=== PATIENT | female | born 1975 | race Caucasian/White ===

== ENCOUNTER 2018-04-17 14:53 | Emergency (ER) | payer MEDICAID ==
--- NOTE | 2018-04-17 15:23 | ER Document Report ---
ED GI/ - General Chief Complaint: Possible Kidney Stone Stated Complaint: SIDE PAIN AND FEVER Time Seen by Provider: 04/17/18 15:13 Notes: The patient is a 43-year-old female, past medical history prior left-sided kidney stones, metastatic breast cancer, presents with 5 days of intermittent left flank pain rating into her groin. She has had 4 prior kidney stones they have all passed without any surgical intervention. Patient took Tylenol with some relief her symptoms and she is not having any nausea or vomiting currently. She is unsure if she is having hematuria. She also is having subjective fevers. Denies diarrhea, constipation, current abdominal pain or dysuria. TRAVEL OUTSIDE OF THE [place] IN LAST 30 DAYS: No - Related Data Allergies/Adverse Reactions: Antihistamines - Alkylamine Adverse Reaction (Verified 04/17/18 14:57) Tachycardia Past Medical History - General Information source: Patient - Social History Smoking Status: Unknown if Ever Smoked Family History: Reviewed & Not Pertinent Renal/ Medical History: Reports: Hx Kidney Stones Malignancy Medical History: Reports: Hx Breast Cancer, Hx Lung Cancer Past Surgical History: Reports: Hx Breast Surgery - bilat. mastectomy and reconstruction - Immunizations Hx Diphtheria, Pertussis, Tetanus Vaccination: No Hx Pneumococcal Vaccination: 07/12/14 Review of Systems - Review of Systems Notes: REVIEW OF SYSTEMS: CONSTITUTIONAL: -fevers, -chills EENT: -eye pain, -difficulty swallowing, -nasal congestion CARDIOVASCULAR: -chest pain, -syncope. RESPIRATORY: -cough, -SOB GASTROINTESTINAL: -abdominal pain, -nausea, -vomiting, -diarrhea GENITOURINARY: -dysuria, -hematuria MUSCULOSKELETAL: +left flank pain, -neck pain SKIN: -rash or skin lesions. HEMATOLOGIC: -easy bruising or bleeding. LYMPHATIC: -swollen, enlarged glands. NEUROLOGICAL: -altered mental status or loss of consciousness, -headache, - neurologic symptoms PSYCHIATRIC: -anxiety, -depression. ALL OTHER SYSTEMS REVIEWED AND NEGATIVE. Physical Exam - Vital signs Vitals: Temp Pulse Resp BP Pulse Ox 98.7 F 111 H 18 128/68 H 99 04/17/18 15:12 04/17/18 15:12 04/17/18 15:12 04/17/18 15:12 04/17/18 15:12 - Notes Notes: PHYSICAL EXAMINATION: GENERAL: Well-appearing, well-nourished and in no acute distress. HEAD: Atraumatic, normocephalic. EYES: Pupils equal round and reactive to light, extraocular movements intact, sclera anicteric, conjunctiva are normal. ENT: nares patent, oropharynx clear without exudates. Moist mucous membranes. NECK: Normal range of motion, supple without lymphadenopathy LUNGS: Breath sounds clear to auscultation bilaterally and equal. No wheezes rales or rhonchi. HEART: Tachycardia, regular rhythm ABDOMEN: Soft, nontender, normoactive bowel sounds. No guarding, no rebound. No masses appreciated. EXTREMITIES: Normal range of motion, no pitting or edema. No cyanosis. BACK: No CVA tenderness. NEUROLOGICAL: Cranial nerves grossly intact. Normal speech, normal gait. Normal sensory and motor exams. PSYCH: Normal mood, normal affect. SKIN: Warm, Dry, normal turgor, no rashes or lesions noted. Course - Re-evaluation Re-evalutation: Patient appears well. She has multiple nonobstructing urolithiasis on her CT scan, as well as multiple sclerotic and lytic osseous lesions. She has a known history of metastatic breast cancer and is already following at [facility] oncology. No signs of infected kidney stones or pyelonephritis and blood work is unremarkable. Will send her home with anti-inflammatories, pain control and antinausea medicine with follow-up at the Urology clinic. - Vital Signs Vital signs: Temp Pulse Resp BP Pulse Ox 98.7 F 111 H 18 128/68 H 99 04/17/18 15:12 04/17/18 15:12 04/17/18 15:12 04/17/18 15:12 04/17/18 15:12 - Laboratory Result Diagrams: 04/17/18 15:25 04/17/18 15:25 Laboratory results interpreted by me: 04/17/18 04/17/18 15:00 15:25 Sodium 148.5 H Glucose 129 H Calcium 10.3 H Urine Blood SMALL H - Diagnostic Test Radiology reviewed: Image reviewed, Reports reviewed - Will discharge her after her next Radiology results interpreted by me: CT A/P: 1. Nonobstructing urolithiasis. 2. Multiple mixed sclerotic and lytic osseous lesions as detailed above. Given patient's history of breast cancer, favor metastatic disease. Discharge - Discharge Clinical Impression: Renal colic on left side Condition: Stable Disposition: HOME, SELF-CARE Additional Instructions: KIDNEY STONE: You are passing or have passed a kidney stone. These stones are usually due to increased calcium or uric acid concentrations in your urine. Stones within the kidney itself are not painful. The pain occurs as the stone leaves the kidney to pass down the long tube, called the ureter, leading to the bladder. If the stone is small, it will usually pass by itself. Most patients can pass the stone at home. You will usually receive medications for pain, nausea or vomiting, and sometimes a medication to assist in passing the kidney stone. However, if the pain is very severe or if vomiting prevents you from taking oral pain medications, you may need to return for further treatment. Drink three or four quarts of fluids per day. You will be given pain medication (if needed) and urine strainers. Strain all your urine to see if the stone passes. If your doctor has asked you to bring the stone in for analysis, return with the stone once it has passed. Return if pain or vomiting become severe, if you develop a high fever, if you are unable to pass your urine, or if other unusual symptoms occur. ANTINAUSEA MEDICATION: You have been given a medication to suppress nausea and vomiting. This type of medication can be given as a shot, pill, or suppository. It will usually last for many hours. Pills and shots usually last six to eight hours, suppositories last about 12 hours. For the typical illness, only one or two doses of the medication may be necessary. Mild lightheadedness may occur. This type of medicine can cause drowsiness. Do not drive or operate dangerous machinery while under its influence. Do not mix with alcohol. See your doctor at once if you have muscle spasms or tightness, or uncontrollable motions (particularly of the neck, mouth, or jaw). Persistent vomiting or severe lightheadedness should also be evaluated by the physician. ORAL NARCOTIC MEDICATION: You have been given a prescription for pain control. This medication is a narcotic. It's best taken with food, as nausea can result if taken on an empty stomach. Don't operate machinery or drive within six hours of taking this medication. Do not combine this medicine with alcohol, or with any medication which can cause sedation (such as cold tablets or sleeping pills) unless you get permission from the physician. Narcotics tend to cause constipation. If possible, drink plenty of fluids and eat a diet high in fiber and fruits. Please be aware that prescription narcotics also have the potential for abuse. People become addicted to these medications because of the general sense of wellbeing that they induce. This feeling along with a significant reduction in tension, anxiety, and aggression provides a stimulating seductive quality to these drugs. Once your pain is under control, we encourage you to discard your unused narcotics. FOLLOW-UP CARE: If you have been referred to a physician for follow-up care, call the physician s office for an appointment as you were instructed or within the next two days. If you experience worsening or a significant change in your symptoms, notify the physician immediately or return to the Emergency Department at any time for re-evaluation. Prescriptions: Hydrocodone/Acetaminophen [[place] 5-325 mg Tablet] 1 tab PO Q6H PRN #10 tablet PRN Reason: Ondansetron [Zofran Odt 4 mg Tablet] 1 - 2 tab PO Q4H PRN #15 tab.rapdis PRN Reason: For Nausea/Vomiting Forms: Elevated Blood Pressure Referrals: [facility] [Provider Group] - Follow up as needed
[2018-04-17 15:43] LABS: ABSOLUTE BASOPHILS # (AUTO) 0.1 10^3/uL (0.0-0.2); ABSOLUTE EOSINOPHILS # (AUTO) 0.1 10^3/uL (0.0-0.6); ABSOLUTE LYMPHOCYTES (AUTO) 1.4 10^3/uL (0.5-4.7); ABSOLUTE MONOCYTES (AUTO) 0.5 10^3/uL (0.1-1.4); ABSOLUTE NEUT (AUTO) 7.2 10^3/uL (1.7-8.2); BASOPHILS % (AUTO) 0.7 % (0-2); EOSINOPHILS % (AUTO) 0.9 % (0-6); HEMATOCRIT 40.4 % (36.0-47.0); HEMOGLOBIN 14.2 g/dL (12.0-15.5); LYMPHOCYTES % (AUTO) 15.6 % (13-45); MEAN CORPUSCULAR HEMOGLOBIN 31.5 pg (27.0-33.4); MEAN CORPUSCULAR HGB CONC 35.1 g/dL (32.0-36.0); MEAN CORPUSCULAR VOLUME 90 fl (80-97); MONOCYTES % (AUTO) 5.2 % (3-13); PLATELET COUNT 344 10^3/uL (150-450); RED CELL DISTRIBUTION WIDTH 12.5 % (11.5-14.0); SEGMENTED NEUTROPHILS % (AUTO) 77.6 % (42-78); TOTAL CELLS COUNTED % (AUTO) 100 %; WHITE BLOOD COUNT 9.2 10^3/uL (4.0-10.5)
[2018-04-17 15:45] LABS: APPEARANCE,URINE CLEAR; BILIRUBIN,URINE NEGATIVE (NEGATIVE); COLOR,URINE COLORLESS; GLUCOSE, URINE NEGATIVE (NEGATIVE); KETONES,URINE NEGATIVE (NEGATIVE); LEUKOCYTE ESTERASE,URINE NEGATIVE (NEGATIVE); NITRITE,URINE NEGATIVE (NEGATIVE); PROTEIN,URINE NEGATIVE (NEGATIVE); URINE SPECIFIC GRAVITY 1.003; UROBILINOGEN,URINE NEGATIVE mg/dL (<2.0)
[2018-04-17 15:57] LABS: ALANINE AMINOTRANSFERASE 22 U/L (9-52); ALBUMIN 4.9 g/dL (3.5-5.0); ALKALINE PHOSPHATASE 110 U/L (38-126); ANION GAP 16 (5-19); ASPARTATE AMINO TRANSFERASE 33 U/L (14-36); BILIRUBIN,DIRECT 0.3 mg/dL (0.0-0.4); BILIRUBIN,TOTAL 0.4 mg/dL (0.2-1.3); BLOOD UREA NITROGEN 10 mg/dL (7-20); CALCIUM 10.3 mg/dL (8.4-10.2); CARBON DIOXIDE 28 mmol/L (22-30); CHLORIDE 105 mmol/L (98-107); GLUCOSE 129 mg/dL (75-110); POTASSIUM 3.9 mmol/L (3.6-5.0); SODIUM 148.5 mmol/L (137-145)
--- NOTE | 2018-04-17 16:19 | RADIOLOGY REPORT (SQ) ---
EXAM DESCRIPTION: CT LTD RENAL STONE PROTOCOL ON COMPLETED DATE/TIME: 04/17/2018 3:38 pm REASON FOR STUDY: left flank pain into groin COMPARISON: 12/21/2014 TECHNIQUE: CT scan of the abdomen and pelvis performed without intravenous or oral contrast. Images reviewed with lung, soft tissue, and bone windows. Reconstructed coronal and sagittal MPR images revi ewed. All images stored on PACS. All CT scanners at this facility use dose modulation, iterative reconstruction, and/or weight based d osing when appropriate to reduce radiation dose to as low as reasonably achievable (ALARA). [facility]: Dose Right [facility]: CareDose [facility]: Dose Right [facility]: Teradose 4D [facility]: [employer] RADIATION DOSE: CT Rad equipment meets quality standard of care and radiation dose reduction techniq ues were employed. CTDIvol: 5.0 mGy. DLP: 243 mGy-cm.mGy. LIMITATIONS: None. FINDINGS: LOWER CHEST: Right lung base pleural nodular thickening demonstrating new peripheral calci fications. NON-CONTRASTED LIVER, SPLEEN, ADRENALS: Evaluation limited by lack of IV contrast. Mildly heterogene ous attenuation without identified significant masses. PANCREAS: No masses. No peripancreatic inflammatory changes. GALLBLADDER: No identified stones by CT criteria. No inflammatory changes to suggest cholecystitis. RIGHT KIDNEY AND URETER: No suspicious masses. Assessment limited by lack of IV contrast. Few punct ate nonobstructing nephroliths are present. No hydronephrosis or hydroureter. LEFT KIDNEY AND URETER: No suspicious masses. Assessment limited by lack of IV contrast. Multiple n onobstructing punctate nephroliths are present. No hydronephrosis or hydroureter. AORTA AND RETROPERITONEUM: No aneurysm. No retroperitoneal masses or adenopathy. BOWEL AND PERITONEAL CAVITY: No obvious masses or inflammatory changes. No free fluid. APPENDIX: Normal. PELVIS, BLADDER, AND ABDOMINAL WALL:No abnormal masses. No free fluid. Bladder normal. BONES: Transitional anatomy is present. Interval development of predominantly lytic lesions within t he L5 and L2 vertebral bodies noting extension to the cortical surfaces. No compression deformity. Additionally, predominantly sclerotic expansion of the right inferior pubic ramus and mixed lytic and sclerotic expansion of the left femur are present. Both a small sclerotic focus and lytic expansion are seen within the right sacrum. OTHER: No other significant finding. IMPRESSION: 1. Nonobstructing urolithiasis. 2. Multiple mixed sclerotic and lytic osseous lesions as detailed above. Given patient's history of breast cancer, favor metastatic disease. COMMENT: Quality ID # [id number]: Final reports with documentation of one or more dose reduction techniques (e.g., Automated exposure control, adjustment of the mA and/or kV according to patient size, use of iterative reconstruction technique) TECHNICAL DOCUMENTATION: JOB ID: [id number] [employer]- All Rights Reserved Reading location - IP/workstation name: [email or web address]
[2018-04-17 17:03] VITALS: BP 117/73
== END 2018-04-17 17:03 | disposition home or self-care (01) ==
LOC: ER 14:53
DX: N20.0 Calculus of kidney (principal); Z87.442 Personal history of urinary calculi; Z85.3 Personal history of malignant neoplasm of breast; Z90.13 Acquired absence of bilateral breasts and nipples; Z85.118 Personal history of other malignant neoplasm of bronchus and lung
CPT/HCPCS: 36415; 76380; 80053; 81001; 81025; 85025; 99284

== ENCOUNTER 2019-02-09 00:29 | Inpatient (IN) | payer MEDICAID ==
--- NOTE | 2019-02-09 02:28 | ER Document Report ---
ED Medical Screen (RME) - General Chief Complaint: Leg Swelling Stated Complaint: LEFT LEG/ANKLE SWELLING Time Seen by Provider: 02/09/19 02:25 Mode of Arrival: Ambulatory Information source: Patient, [facility] Records Notes: 44-year-old female with metastatic breast cancer presents with left lower extremity pain and swelling. Patient states that 2 nights prior to arrival she struck the back of her heel on a chair and then developed swelling of her left calf and now the left thigh. Patient denies any shortness of breath, history of PE, DVT. She is currently undergoing chemo. She denies any shortness of breath, palpitations. I have greeted and performed a rapid initial assessment of this patient. A comprehensive ED assessment and evaluation of the patient, analysis of test results and completion of medical decision making process we will be contacted by additional ED providers. PHYSICAL EXAMINATION: Vital signs reviewed GENERAL: Well-appearing, well-nourished and in no acute distress. LUNGS: No respiratory distress Musculoskeletal: Normal range of motion. Left lower extremity swelling, mild tenderness with palpation of the calf. NEUROLOGICAL: Normal speech, normal gait. PSYCH: Normal mood, normal affect. SKIN: Warm, Dry, normal turgor, no rashes or lesions noted. TRAVEL OUTSIDE OF THE [place] IN LAST 30 DAYS: No - HPI Onset: Other Onset/Duration: Gradual, Persistent Quality of pain: Achy Associated Symptoms: Leg swelling. denies: Chest pain, Fever, Hurts to breath, Shortness of breath Exacerbated by: Movement, Walking Relieved by: Denies Similar symptoms previously: No Recently seen / treated by doctor: No - Related Data Smoking: Non-smoker Frequency of alcohol use: None Drug Abuse: None Allergies/Adverse Reactions: Antihistamines - Alkylamine Adverse Reaction (Verified 04/17/18 14:57) Tachycardia Past Medical History Renal/ Medical History: Reports: Hx Kidney Stones. Denies: Hx Peritoneal Dialysis Malignancy Medical History: Reports: Hx Breast Cancer, Hx Lung Cancer Past Surgical History: Reports: Hx Breast Surgery - bilat. mastectomy and reconstruction - Immunizations Hx Diphtheria, Pertussis, Tetanus Vaccination: No Physical Exam - Vital signs Vitals: Temp Pulse Resp BP Pulse Ox 98.2 F 136 H 20 130/69 H 100 02/09/19 01:10 02/09/19 01:10 02/09/19 01:10 02/09/19 01:02/09/19 01:10 Course - Vital Signs Vital signs: Temp Pulse Resp BP Pulse Ox 98.2 F 136 H 20 130/69 H 100 02/09/19 01:10 02/09/19 01:10 02/09/19 01:10 02/09/19 01:02/09/19 01:10
--- NOTE | 2019-02-09 02:42 | ER Document Report ---
ED General - General Mode of Arrival: Ambulatory TRAVEL OUTSIDE OF THE [place] IN LAST 30 DAYS: No <GLENIS JOHNSON - Last Filed: 02/09/19 03:02> <HIMANSHU DAVIS - Last Filed: 02/09/19 11:34> - General Chief Complaint: Leg Swelling Stated Complaint: LEFT LEG/ANKLE SWELLING Time Seen by Provider: 02/09/19 02:25 Notes: Patient is a pleasant 44-year-old female with a history of breast cancer with metastasis to her liver lungs and bones. She presents with complaint of swelling and edema her left leg started yesterday. Patient was initially seen by Dr. Anderson who did a bedside ultrasound which showed she likely has a DVT in her left leg as her left femoral vein is noncompressible. Patient denies any chest pain or shortness of breath. No fevers. No vomiting. No other complaints at this time. She is currently on oral chemotherapy for her breast cancer. She is followed by oncologist at [facility]. (GLENIS JOHNSON) - Related Data Allergies/Adverse Reactions: Antihistamines - Alkylamine Adverse Reaction (Verified 04/17/18 14:57) Tachycardia contrast dye Allergy (Uncoded 02/09/19 02:52) Anaphylaxis Past Medical History - General Information source: Patient, [facility] Records - Social History Smoking Status: Never Smoker Frequency of alcohol use: None Drug Abuse: None Family History: Reviewed & Not Pertinent Renal/ Medical History: Reports: Hx Kidney Stones. Denies: Hx Peritoneal Dialysis Malignancy Medical History: Reports: Hx Breast Cancer, Hx Lung Cancer Past Surgical History: Reports: Hx Breast Surgery - bilat. mastectomy and reconstruction - Immunizations Hx Diphtheria, Pertussis, Tetanus Vaccination: No Hx Pneumococcal Vaccination: 07/12/14 <GLENIS JOHNSON - Last Filed: 02/09/19 03:02> Review of Systems <GLENIS JOHNSON - Last Filed: 02/09/19 03:02> - Review of Systems Notes: My Normal Review Basic REVIEW OF SYSTEMS: CONSTITUTIONAL : Denies fever, chills, or sweats. Denies recent illness. EENT: Denies eye, ear, throat, or mouth pain or symptoms. Denies nasal or sinus congestion. CARDIOVASCULAR: Denies chest pain. RESPIRATORY: Denies cough, cold, or chest congestion. Denies shortness of breath, difficulty breathing, or wheezing. GASTROINTESTINAL: Denies abdominal pain. Denies nausea, vomiting, or diarrhea. GENITOURINARY: Denies difficulty urinating, painful urination, burning, frequency, or blood in urine. MUSCULOSKELETAL: Swelling to left lower leg. SKIN: Denies rash or skin lesions. HEMATOLOGIC : Denies easy bruising or bleeding. NEUROLOGICAL: Denies altered mental status or loss of consciousness. Denies headache. Denies weakness or paralysis or loss of use of either side. Denies problems with gait or speech. Denies sensory or motor loss. PSYCHIATRIC: She says she has anxiety. ALL OTHER SYSTEMS REVIEWED AND NEGATIVE. (GLENIS JOHNSON) Physical Exam <GLENIS JOHNSON - Last Filed: 02/09/19 03:02> - Vital signs Vitals: Temp Pulse Resp BP Pulse Ox 98.2 F 136 H 20 130/69 H 100 02/09/19 01:10 02/09/19 01:10 02/09/19 01:10 02/09/19 01:10 02/09/19 01:10 - Notes Notes: General Appearance: Well nourished, alert, cooperative, no acute distress, no obvious discomfort. Well-appearing. Vitals: reviewed, See vital signs table. Head: no swelling or tenderness to the head Eyes: PERRL, EOMI, Conjuctiva clear Mouth: No decreasd moisture Lungs: No wheezing, No rales, No rhonci, No accessory muscle use, good air exchange bilaterally. Heart: Cardiac rate, Regular rythm, No murmur, no rub Abdomen: Normal BS, soft, No rigidity, No abdominal tenderness, No guarding, no rebound, no abdominal masses, no organomegaly Extremities: strength 5/5 in all extremities, good pulses in all extremities, increased swelling in left lower extremity comparison to right. 2+ edema left lower extremity. Skin: warm, dry, appropriate color, no rash Neuro: speech clear, oriented x 3, normal affect, responds appropriately to questions. Psychiatric: anxious appearing. (GLENIS JOHNSON) Course <GLENIS JOHNSON - Last Filed: 02/09/19 03:02> - Laboratory Result Diagrams: 02/09/19 03:07 02/09/19 03:07 <HIMANSHU DAVIS - Last Filed: 02/09/19 11:34> - Vital Signs Vital signs: Temp Pulse Resp BP Pulse Ox 98.1 F 136 H 33 H 98/71 L 96 02/09/19 04:01 02/09/19 01:10 02/09/19 08:01 02/09/19 08:00 02/09/19 08:01 - Laboratory Laboratory results interpreted by me: 02/09/19 02/09/19 02/09/19 03:07 03:07 10:48 WBC 13.3 H RDW 14.7 H Seg Neutrophils % 80.7 H Lymphocytes % 10.0 L Absolute Neutrophils 10.8 H BUN 6 L Creatinine 0.51 L Glucose 118 H Lactic Acid 2.6 H AST 75 H Alkaline Phosphatase 442 H - EKG Interpretation by Me Additional EKG results interpreted by me: 02/09/19 02:41 EKG is reviewed and interpreted by me. EKG shows sinus tachycardia with rate of [address] segment elevation or depression. No ischemic T wave inversions. CO interval, QRS duration, QT intervals are within normal range. Old EKG for comparison is from December 01, 2014. (GLENIS JOHNSON) Discharge <GLENIS JOHNSON - Last Filed: 02/09/19 03:02> - Discharge Admitting Provider: [place] (Hospitalist) Unit Admitted: [facility] <HIMANSHU DAVIS - Last Filed: 02/09/19 11:34> - Discharge Clinical Impression: Pleural effusion, left, Tachycardia, Shortness of breath Left leg DVT Qualifiers: Affected thrombotic vein of extremity: femoral Chronicity: acute Qualified Code(s): I82.412 - Acute embolism and thrombosis of left femoral vein Condition: Stable Disposition: ADMITTED OBSERVATION
[2019-02-09] MEDS ORDERED: LORAZEPAM INJ 2 MG/1 ML VIAL IV ONE (03:02)
[2019-02-09 03:47] LABS: ABSOLUTE BASOPHILS # (AUTO) 0.1 10^3/uL (0.0-0.2); ABSOLUTE EOSINOPHILS # (AUTO) 0.3 10^3/uL (0.0-0.6); ABSOLUTE LYMPHOCYTES (AUTO) 1.3 10^3/uL (0.5-4.7); ABSOLUTE MONOCYTES (AUTO) 0.8 10^3/uL (0.1-1.4); ABSOLUTE NEUT (AUTO) 10.8 10^3/uL (1.7-8.2); BASOPHILS % (AUTO) 0.9 % (0-2); EOSINOPHILS % (AUTO) 2.3 % (0-6); HEMATOCRIT 38.6 % (36.0-47.0); HEMOGLOBIN 12.6 g/dL (12.0-15.5); MEAN CORPUSCULAR HEMOGLOBIN 28.5 pg (27.0-33.4); MEAN CORPUSCULAR HGB CONC 32.7 g/dL (32.0-36.0); MEAN CORPUSCULAR VOLUME 87 fl (80-97); MONOCYTES % (AUTO) 6.1 % (3-13); PLATELET COUNT 371 10^3/uL (150-450); RED BLOOD COUNT 4.44 10^6/uL (3.72-5.28); RED CELL DISTRIBUTION WIDTH 14.7 % (11.5-14.0); SEGMENTED NEUTROPHILS % (AUTO) 80.7 % (42-78); TOTAL CELLS COUNTED % (AUTO) 100 %; WHITE BLOOD COUNT 13.3 10^3/uL (4.0-10.5)
[2019-02-09 03:54] LABS: INTERNATIONAL RATION (INR) 1.01; PROTHROMBIN TIME 13.8 SEC (11.4-15.4)
[2019-02-09 03:55] LABS: PARTIAL THROMBOPLASTIN TIME 29.5 SEC (23.5-35.8)
--- NOTE | 2019-02-09 05:39 | RADIOLOGY REPORT (SQ) ---
EXAM DESCRIPTION: CT HEAD WITHOUT IV CONTRAST COMPLETED DATE/TME: 02/09/2019 03:01 CLINICAL HISTORY: 44 years, Female, breast cancer. Look for mets in brain COMPARISON: None Available. Technique: Contiguous axial images of the brain were obtained without the administration of intravenous contrast. Coronal and sagittal reformats obtained and reviewed. This exam was performed according to our departmental dose-optimization program which includes use of Automated Exposure Control, adjustment of the mA and/or kV according to patient size and/or use of iterative reconstruction technique. Findings: Brain: No hemorrhage. No territorial infarct. No mass effect. No herniation. Ventricles: Within normal limits for patient's age. Bones: No acute osseous abnormality. Paranasal sinuses: Unremarkable. Mastoid air cells: Unremarkable. Soft tissues: No acute abnormality. IMPRESSION: No acute intracranial abnormalities. Negative for metastatic disease however MRI without and with contrast is far more sensitive
--- NOTE | 2019-02-09 06:05 | RADIOLOGY REPORT (SQ) ---
EXAM: Nuclear medicine lung ventilation/perfusion scan CLINICAL DATA: 44-year-old female with DVT left lower leg, tachycardic TECHNICAL DATA: 30 mCi of Tc-DTPA is administered by inhalation. Anterior and posterior images of the lungs are performed. Then, 5 mCi of 99m Tc MAA is administered intravenously. Multiple projections of the lungs are performed including anterior and posterior views. FINDINGS: No prior chest x-ray was available for comparison at this time. When it does become available, an addendum will be issued. The ventilation images reveal homogeneous distribution of radiotracer throughout the lungs. No focal ventilation defects are identified. There is no evidence of delayed washout. There is clumping of radiotracer within the proximal bronchi. The perfusion images reveal homogeneous distribution throughout the lungs without evidence of segmental or subsegmental perfusion defects. IMPRESSION: 1. Normal ventilation/perfusion lung scan. The scan is low probability for pulmonary embolism. 2. When a recent chest x-ray becomes available for comparison, an addendum will be issued.
[2019-02-09 06:18] LABS: ALANINE AMINOTRANSFERASE 41 U/L (9-52); ALBUMIN 4.2 g/dL (3.5-5.0); ALKALINE PHOSPHATASE 442 U/L (38-126); ANION GAP 15 (5-19); ASPARTATE AMINO TRANSFERASE 75 U/L (14-36); BILIRUBIN,DIRECT 0.4 mg/dL (0.0-0.4); BILIRUBIN,TOTAL 0.6 mg/dL (0.2-1.3); BLOOD UREA NITROGEN 6 mg/dL (7-20); CARBON DIOXIDE 26 mmol/L (22-30); CHLORIDE 99 mmol/L (98-107); GLUCOSE 118 mg/dL (75-110); SODIUM 140.1 mmol/L (137-145); TOTAL PROTEIN 7.8 g/dL (6.3-8.2)
[2019-02-09] MEDS ORDERED: NORMAL SALINE 1000 ML 1,000 ML IV ONE ×2 (08:24→14:17)
--- NOTE | 2019-02-09 08:29 | RADIOLOGY REPORT (SQ) ---
EXAM DESCRIPTION: CHEST 2 VIEWS COMPLETED DATE/TIME: 02/09/2019 7:11 am REASON FOR STUDY: COMPARISON FOR VQ SCAN COMPARISON: 12/01/2014 EXAM PARAMETERS: NUMBER OF VIEWS: two views TECHNIQUE: Digital Frontal and Lateral radiographic views of the chest acquired. RADIATION DOSE: NA LIMITATIONS: none FINDINGS: LUNGS AND PLEURA: There is loculated appearing pleural fluid and/or pleural soft tissue ab out the left upper lobe with a moderate left pleural effusion. MEDIASTINUM AND HILAR STRUCTURES: No masses or contour abnormalities. HEART AND VASCULAR STRUCTURES: Heart normal size. No evidence for failure. BONES: No acute findings. HARDWARE: None in the chest. OTHER: Bilateral breast implants and surgical clips about the chest. IMPRESSION: There is loculated appearing pleural fluid and/or pleural soft tissue about the left upp er lobe with a moderate left pleural effusion. Recommend contrast-enhanced CT to further evaluate. TECHNICAL DOCUMENTATION: JOB ID: [id number] [employer]- All Rights Reserved Reading location - IP/workstation name: [email or web address]
--- NOTE | 2019-02-09 08:56 | RADIOLOGY REPORT (SQ) ---
EXAM DESCRIPTION: VENOUS UNILATERAL LOWER COMPLETED DATE/TIME: 02/09/2019 8:38 am REASON FOR STUDY: left lower extremity swelling COMPARISON: None. TECHNIQUE: Dynamic and static garcia scale and color images acquired of the left leg venous system. Se lected spectral images acquired with additional compression and augmentation maneuvers. The contralat eral common femoral vein and saphenofemoral junction were also imaged. Images stored on PACS. LIMITATIONS: None. FINDINGS: COMMON FEMORAL: Noncompressible thrombus throughout. FEMORAL: Noncompressible thrombus throughout. POPLITEAL: Noncompressible thrombus throughout. CALF VESSELS: Noncompressible thrombus throughout. GSV and SSV: Normal compression, augmentation. No visualized echogenic material on garcia scale. No def ects on color images. ANY DEEP VENOUS INSUFFICIENCY: Not evaluated. ANY EVIDENCE OF POPLITEAL CYST: No. OTHER: No other significant finding. CONTRALATERAL COMMON FEMORAL VEIN AND SAPHENOFEMORAL JUNCTION: Normal phasicity, compression and augmentation. No visualized echogenic material on garcia scale. No de fects on color images. IMPRESSION: Positive examination for deep venous thrombosis in the left lower extremity with noncomp ressible thrombus present from the proximally imaged common femoral vein through the peroneal and pos terior tibial veins in the left calf. Thrombus is age indeterminate. Status vessels are patent. Findings communicated to Dr. Lloyd, [place], 0840 hours, 02/09/2019 TECHNICAL DOCUMENTATION: JOB ID: [id number] [employer]- All Rights Reserved Reading location - IP/workstation name: [email or web address]
[2019-02-09] MEDS ORDERED: LEVOFLOXACIN 750 MG/D5W RTU 750 MG/150 ML RTUPB IV ONE (09:34)
[2019-02-09] MEDS ORDERED: HEPARIN SODIUM,PORCINE/D5W 25,000 UNIT/250 ML RTUINJ IV PRN (09:39)
[2019-02-09] MEDS ORDERED: HEPARIN SOD (PORCINE) 1,000 UNIT/ML 10 ML VIAL IV ONE (09:39)
--- NOTE | 2019-02-09 11:00 | ER Document Report ---
Doctor's Note Notes: 02/09/19 10:57 Patient seen and evaluated. She has diffuse left lower extremity edema. She states her pain is under control currently. She did describe having URI symptoms last week with cough, congestion and intermittent fevers that have since resolved. She states the cough has persisted but it is mild. Patient's venous Doppler is positive for left lower extremity DVT, the clot burden is extensive from her calf up into her pelvis. Patient was started on heparin for her extensive left DVT. Her chest x-ray shows left-sided effusion with loculations. Because of her recent cough she was given a dose of antibiotics to cover for possible underlying pneumonia. Patient does not appear septic however blood cultures and lactate have been ordered. I discussed her care with Dr. Verdin, oncology at [facility] who has accepted patient for transfer for likely VATS procedure for her pleural effusion. [facility] currently does not have any beds available but she was placed on a waiting list, I was told it would be about 24 hours prior to having a bed become available. Because of the prolonged time. Between now and patient being transferred she will be admitted to the hospital for medical management in the meantime with a plan to transfer when able. Patient's care was discussed with Dr. Avila who has accepted admission. Patient in agreement with this plan of care.
[2019-02-09 11:12] LABS: INTERNATIONAL RATION (INR) 1.24; PROTHROMBIN TIME 16.3 SEC (11.4-15.4)
[2019-02-09 11:36] LABS: APPEARANCE,URINE CLEAR; BILIRUBIN,URINE NEGATIVE (NEGATIVE); COLOR,URINE YELLOW; GLUCOSE, URINE NEGATIVE (NEGATIVE); KETONES,URINE NEGATIVE (NEGATIVE); LEUKOCYTE ESTERASE,URINE NEGATIVE (NEGATIVE); NITRITE,URINE NEGATIVE (NEGATIVE); PROTEIN,URINE NEGATIVE (NEGATIVE); UROBILINOGEN,URINE NEGATIVE mg/dL (<2.0)
[2019-02-09 11:44] LABS: PARTIAL THROMBOPLASTIN TIME 160.2 SEC (23.5-35.8)
[2019-02-09] MEDS ORDERED: ONDANSETRON 4 MG TAB.RAPDIS PO PRN (12:05)
[2019-02-09] MEDS ORDERED: HEPARIN SOD (PORCINE) 1,000 UNIT/ML 10 ML VIAL IV PRN (12:39)
--- NOTE | 2019-02-09 16:57 | PDOC H&P ---
History of Present Illness Admission Date/PCP: 02/09/19 11:20 Patient complains of: LLE pain History of Present Illness: SERAFIN MENDIOLA is a 44 year old female with a PMH of metastatic breast cancer presented to the emergency department with LLE erythema and edema. Patient states that 48 hrs prior to arrival she hit the back of her heel on a chair and then developed swelling of her left calf and now the left thigh. Additionally, yesterday she was riding in a car for approximately 4 hours (this is following her foot injury). The patient's endorses significant LLE pain, and difficulty ambulating as a result of the pain. US reveals extensive DVT burden from left calf to pelvis. In addition to LLE pain, patient endorses recent URI symptoms. She denies dyspnea, shortness of breath or respiratory distress. CXR performed in the emergency department demonstrates left-sided loculated pleural effusion. Upon assessment, the patient is resting comfortably in bed on room air. She endorses LLE pain and swelling, denies paresthesia. LLE appears mildly erythematous with trace peripheral edema. DP and PT pulses are palpable. Lungs are clear to auscultation, diminished in the LLL. No evidence of peripheral or central cyanosis. S1-S2. ED physician talked to patient's oncologist at [facility] who agree that the patient requires care at a tertiary facility. Dr. Verdin, oncology at [facility] has accepted patient for transfer for likely VATS procedure for her pleural effusion. Plan to admit to hospitalist service while waiting for transf er to [facility]. Past Medical History Malignancy Medical History: Reports: Breast Cancer, Lung Cancer Social History Information Source: Patient Lives with: Family Smoking Status: Never Smoker Frequency of Alcohol Use: None Hx Recreational Drug Use: No Drugs: None Hx Prescription Drug Abuse: No - Advance Directive Resuscitation Status: Full Code Family History Family History: Malignancy - MOTHER - BREAST CA Parental Family History Reviewed: Yes Children Family History Reviewed: NA Sibling(s) Family History Reviewed.: NA Medication/Allergy Home Medications: No Home Medications 02/09/19 Allergies/Adverse Reactions: Antihistamines - Alkylamine Adverse Reaction (Verified 04/17/18 14:57) Tachycardia contrast dye Allergy (Uncoded 02/09/19 02:52) Anaphylaxis Review of Systems Constitutional: ABSENT: headache(s) Eyes: ABSENT: visual disturbances Nose, Mouth, and Throat: ABSENT: mouth pain, sore throat Cardiovascular: PRESENT: edema - LLE Respiratory: ABSENT: cough Gastrointestinal: ABSENT: abdominal pain Genitourinary: ABSENT: dysuria Musculoskeletal: ABSENT: deformity Integumentary: PRESENT: erythema - LLE Neurological: ABSENT: syncope Psychiatric: ABSENT: anxiety, depression Endocrine: ABSENT: cold intolerance, heat intolerance Hematologic/Lymphatic: ABSENT: easy bruising Physical Exam Vital Signs: Temp Pulse Resp BP Pulse Ox 98.1 F 136 H 33 H 98/71 L 96 02/09/19 04:01 02/09/19 01:10 02/09/19 08:01 02/09/19 08:00 02/09/19 08:01 Intake & Output 02/08/19 02/09/19 02/10/19 06:59 06:59 06:59 Intake Total 2150 Balance 2150 Weight 50.2 kg General appearance: PRESENT: well-developed, well-nourished Head exam: PRESENT: atraumatic Eye exam: PRESENT: conjunctiva pink, PERRLA Mouth exam: PRESENT: moist, tongue midline Neck exam: PRESENT: full ROM Respiratory exam: PRESENT: clear to auscultation andreina, symmetrical, unlabored Cardiovascular exam: PRESENT: RRR Pulses: PRESENT: normal radial pulses, normal dorsalis pedis pul Vascular exam: PRESENT: normal capillary refill GI/Abdominal exam: PRESENT: normal bowel sounds, soft. ABSENT: distended, tenderness Rectal exam: PRESENT: deferred Extremities exam: PRESENT: full ROM, pedal edema Musculoskeletal exam: PRESENT: ambulatory - LLE PAIN WITH AMBULATION Neurological exam: PRESENT: alert, awake, oriented to person, oriented to place, oriented to time, oriented to situation Psychiatric exam: PRESENT: appropriate affect Skin exam: PRESENT: dry, intact, normal color Results Laboratory Results: 02/09/19 03:07 02/09/19 03:07 02/09/19 02/09/19 02/09/19 03:07 03:07 10:48 WBC 13.3 H RBC 4.44 Hgb 12.6 Hct 38.6 MCV 87 MCH 28.5 MCHC 32.7 RDW 14.7 H Plt Count 371 Seg Neutrophils % 80.7 H Lymphocytes % 10.0 L Monocytes % 6.1 Eosinophils % 2.3 Basophils % 0.9 Absolute Neutrophils 10.8 H Absolute Lymphocytes 1.3 Absolute Monocytes 0.8 Absolute Eosinophils 0.3 Absolute Basophils 0.1 Sodium 140.1 Potassium 4.0 Chloride 99 Carbon Dioxide 26 Anion Gap 15 BUN 6 L Creatinine 0.51 L Est GFR ( Amer) > 60 Est GFR (Non-Af Amer) > 60 Glucose 118 H Lactic Acid 2.6 H Calcium 10.0 Total Bilirubin 0.6 AST 75 H ALT 41 Alkaline Phosphatase 442 H Total Protein 7.8 Albumin 4.2 Urine Color Urine Appearance Urine pH Ur Specific [place] Urine Protein Urine Glucose (UA) Urine Ketones Urine Blood Urine Nitrite Ur Leukocyte Esterase Urine WBC (Auto) Urine RBC (Auto) 02/09/19 02/09/19 11:00 14:50 WBC RBC Hgb Hct MCV MCH MCHC RDW Plt Count Seg Neutrophils % Lymphocytes % Monocytes % Eosinophils % Basophils % Absolute Neutrophils Absolute Lymphocytes Absolute Monocytes Absolute Eosinophils Absolute Basophils Sodium Potassium Chloride Carbon Dioxide Anion Gap BUN Creatinine Est GFR ( Amer) Est GFR (Non-Af Amer) Glucose Lactic Acid 1.4 Calcium Total Bilirubin AST ALT Alkaline Phosphatase Total Protein Albumin Urine Color YELLOW Urine Appearance CLEAR Urine pH 6.0 Ur Specific [place] 1.010 Urine Protein NEGATIVE Urine Glucose (UA) NEGATIVE Urine Ketones NEGATIVE Urine Blood NEGATIVE Urine Nitrite NEGATIVE Ur Leukocyte Esterase NEGATIVE Urine WBC (Auto) 2 Urine RBC (Auto) 1 Impressions: Chest X-Ray 02/09/19 00:00 IMPRESSION: There is loculated appearing pleural fluid and/or pleural soft tissue about the left upper lobe with a moderate left pleural effusion. Recommend contrast-enhanced CT to further evaluate. Venous Doppler Study 02/09/19 00:00 IMPRESSION: Positive examination for deep venous thrombosis in the left lower extremity with noncompressible thrombus present from the proximally imaged common femoral vein through the peroneal and posterior tibial veins in the left calf. Thrombus is age indeterminate. Status vessels are patent. Findings communicated to Dr. Lloyd, ER, 0840 hours, 02/09/[address] 02/09/19 03:01 IMPRESSION: No acute intracranial abnormalities. Negative for metastatic disease however MRI without and with contrast is far more sensitive Lung Scan-VQ NM 02/09/19 03:01 IMPRESSION: 1. Normal ventilation/perfusion lung scan. The scan is low probability for pulmonary embolism. 2. When a recent chest x-ray becomes available for comparison, an addendum will be issued. Status: Imported from PACS Assessment and Plan - Diagnosis (1) Left leg DVT Qualifiers: Affected thrombotic vein of extremity: femoral Chronicity: acute Qualified Code(s): I82.412 - Acute embolism and thrombosis of left femoral vein Is this a current diagnosis for this admission?: Yes Plan: Seen on US Noncompressible thrombus present from the approximately common femoral vein through the peroneal and posterior tibial veins in the left calf Initiated heparin GTT per protocol Bedrest Tylenol for pain (2) Pleural effusion, left Is this a current diagnosis for this admission?: Yes Plan: Loculated pleural effusion seen on CXR Likely malignant in nature given the patient's PMH Will require VATS procedure at [facility] (3) Shortness of breath Is this a current diagnosis for this admission?: Yes Plan: Secondary to loculated pleural effusion Maintains SPO2 > 92% on room air See plan above (4) Breast CA Qualifiers: Patient sex: female Is this a current diagnosis for this admission?: Yes Plan: PMH metastatic breast cancer Currently taking letrozole Managed by oncology at [facility] - Time Time Spent with patient: 15-24 minutes Medications reviewed and adjusted accordingly: Yes Anticipated discharge: Tertiary Hospital - [facility] Within: within 48 hours - Inpatient Certification Based on my medical assessment, after consideration of the patient's comorbidities, presenting symptoms, or acuity I expect that the services needed warrant INPATIENT care.: Yes I certify that my determination is in accordance with my understanding of Medicare's requirements for reasonable and necessary INPATIENT services [42 CFR 412.3e].: Yes Medical Necessity: Risk of Complication if Not Cared For in Hospital
--- NOTE | 2019-02-09 19:26 | PDOC TRANSFER SUMMARY ---
General Admission Date/PCP: 02/09/19 11:20 Admission Date: 02/09/19 Accepting Facility: [facility] Resuscitation Status: Full Code - Transfer Diagnosis (1) Left leg DVT Is this a current diagnosis for this admission?: Yes (2) Pleural effusion, left Is this a current diagnosis for this admission?: Yes (3) Shortness of breath Is this a current diagnosis for this admission?: Yes (4) Breast CA Is this a current diagnosis for this admission?: Yes - Transfer Medications Home Medications: No Home Medications 02/09/19 Transfer Medications: Current Medications Acetaminophen (Tylenol 325 Mg Tablet) 975 mg PO Q6HP PRN PRN Reason: FOR PAIN OR TEMP Stop: 03/11/19 12:04 Famotidine (Pepcid 20 Mg Tablet) 20 mg PO Q12 REN Stop: 03/11/19 21:59 Heparin Sodium (Porcine) (Heparin Inj 1,000 Unit/Ml 10 Ml Vial) 0 - 15,000 unit IV .BOLUS PER PROTOCOL PRN; Protocol PRN Reason: RESPOND TO aPTT VALUE Stop: 03/11/19 12:38 Heparin Sodium/Dextrose (Heparin Rtu 25,000 Unit/250 Ml D5w Premix) 25,000 unit in 250 mls @ 0 mls/hr IV CONTINUOUS PRN; Protocol PRN Reason: THIS MED IS NOT "PRN" Stop: 03/11/19 12:08 Ondansetron HCl (Zofran Odt 4 Mg Tablet) 4 mg PO Q6HP PRN PRN Reason: FOR NAUSEA/VOMITING Stop: 03/11/19 12:04 - Allergies Allergies/Adverse Reactions: Antihistamines - Alkylamine Adverse Reaction (Verified 04/17/18 14:57) Tachycardia contrast dye Allergy (Uncoded 02/09/19 02:52) Anaphylaxis Hospital Course Hospital Course: SERAFIN MENDIOLA is a 44 year old female with a PMH of metastatic breast cancer presented to the emergency department with LLE erythema and edema. Patient states that 48 hrs prior to arrival she hit the back of her heel on a chair and then developed swelling of her left calf and now the left thigh. Additionally, yesterday she was riding in a car for approximately 4 hours (this is following her foot injury). The patient's endorses significant LLE pain, and difficulty ambulating as a result of the pain. US reveals extensive DVT burden from left calf to pelvis. The patient was started on a heparin gtt while in the emergency department. In addition to LLE pain, patient endorses recent URI symptoms. She denies dyspnea, shortness of breath or respiratory distress. CXR performed in the emergency department demonstrates left-sided loculated pleural effusion. ED physician talked to patient's oncologist at [facility] who agree that the patient requires care at a tertiary facility. Dr. Verdin, oncology at [facility] has accepted patient for transfer for likely VATS procedure for her pleural effusion. Unfortunately, there were no patient beds available at [facility], so the patient was admitted to the hospitalist service while waiting for transfer to [facility]. Physical Exam Vital Signs: Temp Pulse Resp BP Pulse Ox 98.1 F 110 H 18 104/71 98 02/09/19 04:01 02/09/19 18:16 02/09/19 17:01 02/09/19 17:00 02/09/19 17:01 Intake & Output 02/08/19 02/09/19 02/10/19 06:59 06:59 06:59 Intake Total 2150 Balance 2150 Weight 50.2 kg 50.2 kg General appearance: PRESENT: no acute distress, well-developed, well-nourished Head exam: PRESENT: atraumatic, normocephalic Eye exam: PRESENT: conjunctiva pink, EOMI, PERRLA. ABSENT: scleral icterus Ear exam: PRESENT: normal external ear exam Mouth exam: PRESENT: moist, tongue midline Neck exam: ABSENT: carotid bruit, JVD, lymphadenopathy, thyromegaly Respiratory exam: PRESENT: clear to auscultation andreina, decreased breath sounds - LLL, symmetrical, unlabored. ABSENT: rales, rhonchi, wheezes Cardiovascular exam: PRESENT: RRR. ABSENT: diastolic murmur, rubs, systolic murmur Pulses: PRESENT: normal radial pulses, normal dorsalis pedis pul Vascular exam: PRESENT: normal capillary refill GI/Abdominal exam: PRESENT: normal bowel sounds, soft. ABSENT: distended, guarding, mass, organolmegaly, rebound, tenderness Rectal exam: PRESENT: deferred Extremities exam: PRESENT: full ROM, pedal edema - trace pedal edema to L foot, tenderness - LLE, +1 edema - LLE Musculoskeletal exam: PRESENT: ambulatory - Pain upon ambulation, full ROM. ABSENT: normal inspection Neurological exam: PRESENT: alert, awake, oriented to person, oriented to place, oriented to time, oriented to situation. ABSENT: motor sensory deficit Psychiatric exam: PRESENT: appropriate affect, normal mood. ABSENT: homicidal ideation, suicidal ideation Skin exam: PRESENT: dry, intact, warm. ABSENT: cyanosis, rash Results Laboratory Results: 02/09/19 03:07 02/09/19 03:07 02/09/19 02/09/19 02/09/19 03:07 03:07 10:48 WBC 13.3 H RBC 4.44 Hgb 12.6 Hct 38.6 MCV 87 MCH 28.5 MCHC 32.7 RDW 14.7 H Plt Count 371 Seg Neutrophils % 80.7 H Lymphocytes % 10.0 L Monocytes % 6.1 Eosinophils % 2.3 Basophils % 0.9 Absolute Neutrophils 10.8 H Absolute Lymphocytes 1.3 Absolute Monocytes 0.8 Absolute Eosinophils 0.3 Absolute Basophils 0.1 Sodium 140.1 Potassium 4.0 Chloride 99 Carbon Dioxide 26 Anion Gap 15 BUN 6 L Creatinine 0.51 L Est GFR ( Amer) > 60 Est GFR (Non-Af Amer) > 60 Glucose 118 H Lactic Acid 2.6 H Calcium 10.0 Total Bilirubin 0.6 AST 75 H ALT 41 Alkaline Phosphatase 442 H Total Protein 7.8 Albumin 4.2 Urine Color Urine Appearance Urine pH Ur Specific [place] Urine Protein Urine Glucose (UA) Urine Ketones Urine Blood Urine Nitrite Ur Leukocyte Esterase Urine WBC (Auto) Urine RBC (Auto) 02/09/19 02/09/19 11:00 14:50 WBC RBC Hgb Hct MCV MCH MCHC RDW Plt Count Seg Neutrophils % Lymphocytes % Monocytes % Eosinophils % Basophils % Absolute Neutrophils Absolute Lymphocytes Absolute Monocytes Absolute Eosinophils Absolute Basophils Sodium Potassium Chloride Carbon Dioxide Anion Gap BUN Creatinine Est GFR ( Amer) Est GFR (Non-Af Amer) Glucose Lactic Acid 1.4 Calcium Total Bilirubin AST ALT Alkaline Phosphatase Total Protein Albumin Urine Color YELLOW Urine Appearance CLEAR Urine pH 6.0 Ur Specific [place] 1.010 Urine Protein NEGATIVE Urine Glucose (UA) NEGATIVE Urine Ketones NEGATIVE Urine Blood NEGATIVE Urine Nitrite NEGATIVE Ur Leukocyte Esterase NEGATIVE Urine WBC (Auto) 2 Urine RBC (Auto) 1 Impressions: Chest X-Ray 02/09/19 00:00 IMPRESSION: There is loculated appearing pleural fluid and/or pleural soft tissue about the left upper lobe with a moderate left pleural effusion. Recommend contrast-enhanced CT to further evaluate. Venous Doppler Study 02/09/19 00:00 IMPRESSION: Positive examination for deep venous thrombosis in the left lower extremity with noncompressible thrombus present from the proximally imaged common femoral vein through the peroneal and posterior tibial veins in the left calf. Thrombus is age indeterminate. Status vessels are patent. Findings communicated to Dr. Lloyd, ER, 0840 hours, 02/09/[address] 02/09/19 03:01 IMPRESSION: No acute intracranial abnormalities. Negative for metastatic disease however MRI without and with contrast is far more sensitive Lung Scan-VQ NM 02/09/19 03:01 IMPRESSION: 1. Normal ventilation/perfusion lung scan. The scan is low probability for pulmonary embolism. 2. When a recent chest x-ray becomes available for comparison, an addendum will be issued. Status: Imported from PACS
[2019-02-09] MEDS ORDERED: BISACODYL 10 MG SUPP.RECT PR ONE (20:30)
[2019-02-09] MEDS ORDERED: BISACODYL 10 MG SUPP.RECT PR PRN (20:57)
[2019-02-09] MEDS ORDERED: MAGNESIUM HYDROXIDE SUSP 30 ML UDCUP ONE (21:21)
[2019-02-09] MEDS: FAMOTIDINE 20 MG TABLET PO SCH (21:46)
[2019-02-09] MEDS ORDERED: MAGNESIUM HYDROXIDE SUSP 30 ML UDCUP PO PRN (21:49)
--- NOTE | 2019-02-09 23:13 | EKG REPORT ---
SEVERITY:- ABNORMAL ECG - SINUS TACHYCARDIA LEFT ATRIAL ABNORMALITY BORDERLINE T ABNORMALITIES, ANT-LAT LEADS : Confirmed by: Spencer Sylvester 09-Feb-2019 23:12:40
[2019-02-09] MEDS ORDERED: POLYETHYLENE GLYCOL 3350 POWDER 17 GM/1 PACKET PO ONE (23:30)
[2019-02-10 06:30] LABS: ABSOLUTE BASOPHILS # (AUTO) 0.1 10^3/uL (0.0-0.2); ABSOLUTE EOSINOPHILS # (AUTO) 0.5 10^3/uL (0.0-0.6); ABSOLUTE LYMPHOCYTES (AUTO) 1.8 10^3/uL (0.5-4.7); ABSOLUTE MONOCYTES (AUTO) 0.7 10^3/uL (0.1-1.4); ABSOLUTE NEUT (AUTO) 9.7 10^3/uL (1.7-8.2); BASOPHILS % (AUTO) 1.1 % (0-2); EOSINOPHILS % (AUTO) 3.6 % (0-6); HEMATOCRIT 34.9 % (36.0-47.0); HEMOGLOBIN 11.5 g/dL (12.0-15.5); LYMPHOCYTES % (AUTO) 14.2 % (13-45); MEAN CORPUSCULAR HEMOGLOBIN 28.8 pg (27.0-33.4); MEAN CORPUSCULAR HGB CONC 32.9 g/dL (32.0-36.0); MEAN CORPUSCULAR VOLUME 88 fl (80-97); MONOCYTES % (AUTO) 5.3 % (3-13); PLATELET COUNT 353 10^3/uL (150-450); RED BLOOD COUNT 3.98 10^6/uL (3.72-5.28); RED CELL DISTRIBUTION WIDTH 14.5 % (11.5-14.0); SEGMENTED NEUTROPHILS % (AUTO) 75.8 % (42-78); TOTAL CELLS COUNTED % (AUTO) 100 %; WHITE BLOOD COUNT 12.8 10^3/uL (4.0-10.5)
[2019-02-10 06:53] LABS: ALANINE AMINOTRANSFERASE 38 U/L (9-52); ALBUMIN 3.5 g/dL (3.5-5.0); ALKALINE PHOSPHATASE 373 U/L (38-126); ANION GAP 13 (5-19); ASPARTATE AMINO TRANSFERASE 56 U/L (14-36); BILIRUBIN,DIRECT 0.3 mg/dL (0.0-0.4); BILIRUBIN,TOTAL 0.5 mg/dL (0.2-1.3); BLOOD UREA NITROGEN 5 mg/dL (7-20); CALCIUM 9.6 mg/dL (8.4-10.2); CARBON DIOXIDE 22 mmol/L (22-30); CHLORIDE 106 mmol/L (98-107); GLUCOSE 102 mg/dL (75-110); PHOSPHORUS 3.9 mg/dL (2.5-4.5); POTASSIUM 3.9 mmol/L (3.6-5.0); SODIUM 141.2 mmol/L (137-145); TOTAL PROTEIN 6.7 g/dL (6.3-8.2)
[2019-02-10] MEDS: FAMOTIDINE 20 MG TABLET PO SCH ×2 (09:59→22:41)
[2019-02-10] MEDS: HEPARIN SODIUM,PORCINE/D5W 25,000 UNIT/250 ML RTUINJ IV PRN (10:11)
--- NOTE | 2019-02-10 21:43 | PDOC PROGRESS REPORT ---
Subjective Progress Note for:: 02/10/19 Subjective:: SERAFIN MENDIOLA is a 44 year old female with a PMH of metastatic breast cancer presented to the emergency department with LLE erythema and edema. US reveals extensive DVT burden from left calf to pelvis. The patient was started on a heparin gtt while in the emergency department. CXR performed in the emergency department demonstrates left-sided loculated pleural effusion. Awaiting transfer to DUKE HEALTH for possible VATS. No change to treatment plan. If patient will be staying, then will discuss with accepting physician about any further internvention treatmentoo ooooeeeeeeeeeeeeeeeeeeeeeeeeeeeeeeeeeeeeeeeeeeeeeeeeeeeeeeeeeeeeeeeeeeeeeeeeeeeeeeeeeeeeeeeeeeeeeeee eeeeeeeeeeeeeeeeeeeeeeeeeeeeeeeeeeeeeeeeeeeeeeeeeeeeeeeeeeeeeeeeeeeeeeeeeeeeeeeeeeeeeeeeeeeeeeeeeeee eeeeeeeeeeeeeeeeeeeeeeeeeeeeeeeeeeeeeeeeeeeeeeeeeeeeeeeeeeeeeeeeeeeeeeeeeeeeeeeeeeeeeeeeeeeeeeeeeeee eeeeeeeeeeeeeeeeeeeeeeeeeeeeeeeeeeeeeeeeeeeeeeeeeeeeeeeeeeeeeeeeeeeeeeeeeeeeeeeeeeeeeeeeeeeeeeeeeeee eeeeeeeeeeeeeeeeeeeeeeeeeeeeeeeeeeeeeeeeeeeeeeeeeeeeeeeeeeeeeeeeeeeeeeeeeeeeeeeeeeeeeeeeeeeeeeeeeeee eeeeeeeeeeeeeeeeeeeeeeeeeeeeeeeeeeeeeeeeeeeeeeeeeeeeeeeeeeeeeeeeeeeeeeeeeeeeeeeeeeeeeeeeeeeeeeeeeeee eeeeeeeeeeeeeeeeeeeeeeeeeeeeeeeeeeeeeeeeeeeeeeeeeeeeeeeeeeeeeeeeeeeeeeeeeeeeeeeeeeeeeeeeeeeeeeeeeeee eeeeeeeeeeeeeeeeeeeeeeeeeeeeeeeeeeeeeeeeeeeeeeeeeeeeeeeeeeeeeeeeeeeeeeeeeeeeeeeeeeeeeeeeeeeeeeeeeeee eeeeeeeeeeeeeeeeeeeeeeeeeeeeeeeeeeeeeeeeeeeeeeeeeeeeeeeeeeeeeeeeeeeeeeeeeeeeeeeeeeeeeeeeeeeeeeeeeeee eeeeeeeeeeeeeeeeeeeeeeeeeeeeeeeeeeeeeeejjjjjjjjjjjjjjjjjjjjjjjjjjjjjjjjjjjjjjjjjjjjjjjjjjjjjjjjjjjjj jjjjjjjjjjjjjjjjjjjjjjjjjjjjjjjjjjjjjjjjjjjjjjjjjjjjjjjjjjjjjjjjjjjjjjjjjjjjjjjjjjjjjjjjjjjjjjjjjjjj jjjjjjjjjjjjjjjjjjjjjjjjjjjjjjjjjjjjjjjjjjjjjjjjjjjjjjjjjjjjjjjjjjjjjjjjjjjjjjjjjjjjjjjjjjjjjjjjjjjj jjjjjjjjjjjjjjjjjjjjjjjjjjjjjjjjjjjjjjjjjjjjjjjjjjjjjjjjjjjjjjjjjjjjjjjjjjjjjjjjjjjjjjjjjjjjjjjjjjjj jjjjjjjjjjjjjjjjjjjjjjjjjjjjjjjjjjjjjjjjjjjjjjjjjjjjjjjjjjjjjjjjjjjjjjjjjjjjjjjjjjjjjjjjjjjjjjjjjjjj jjjjjjjjjjjjjjjjjjjjjjjjjjjjjjjjjjjjjjjjjjjjjjjjjjjjjjjjjjjjjjjjjjjjjjjjjjjjjjjjjjjjjjjjjjjjjjjjjjjj jjjjjjjjjjjjjjjjjjjjjjjjjjjjjjjjjjjjjjjjjjjjjjjjjjjjjjjjjjjjjjjjjjjjjjjjjjjjjjjjjjjjjjjjjjjjjjjjjjjj jjjjjjjjjjjjjjjjjjjjjjjjjjjjjjjjjjjjjjjjjjjjjjjjjjjjjjjjjjjjjjjjjjjjjjjjjjjjjjjjjjjjjjjjjjjjjjjjjjjj jjjjjjjjjjjjjjjjjjjjjjjjjjjjjjjjjjjjjjjjjjjjjjjjjjjjjjjjjjjjjjjjjjjjjjjjjjjjjjjjjjjjjjjjjjjjjjjjjjjj jjjjjjjjjjjjjjjjjjjjjjjjjjjjjjjjjjjjjjjjjjjjjjjjjjjjjjjjjjjjjjjjjjjjjjjjjjjjjjjjjjjjjjjjjjjjjjjjjjjj jjjjjjjjjjjjjjjjjjjjjjjjjjjjjjjjjjjjjjjjjjjjjjjjjjjjjjjjjjjjjjjjjjjjjjjjjjjjjjjjjjjjjjjjjjjjjjjjjjjj jjjjjjjjjjjjjjjjjjjjjjjjjjjjjjjjjjjjjjjjjjjjjjjjjjjjjjjjjjjjjjjjjjjjjjjjjjjjjjjjjjjjjjjjjjjjjjjjjjjj jjjjjjjjjjjjjjjjjjjjjjjjjjjjjjjjjjjjjjjjjjjjjjjjjjjjjjjjjjjjjjjjjjjjjjjjjjjjjjjjjjjjjjjjjjjjjjjjjjjj jjjjjjjjjjjjjjjjjjjjjjjjjjjjjjjjjjjjjjjjjjjjjjjjjjjjjjjjjjjjjjjjjjjjjjjjjjjjjjjjjjjjjjjjjjjjjjjjjjjj jjjjjjjjjjjjjjjjjjjjjjjjjjjjjjjjjjjjjjjjjjjjjjjjjjjjjjjjjjjjjjjjjjjjjjjjjjjjjjjjjjjjjjjjjjjjjjjjjjjj jjjjjjjjjjjjjjjjjjjjjjjjjjjjjjjjjjjjjjjjjjjjjjjjjjjjjjjjjjjjjjjjjjjjjjjjjjjjjjjjjjjjjjjjjjjjjjjjjjjj jjjjjjjjjjjjjjjjjjjjjjjjjjjjjjjjjjjjjjjjjjjjjjjjjjjjjjjjjjjjjjjjjjjjjjjjjjjjjjjjjjjjjjjjjjjjjjjjjjjj jjjjjjjjjjjjjjjjjjjjjjjjjjjjjjjjjjjjjjjjjjjjjjjjjjjjjjjjjjjjjjjjjjjjjjjjjjjjjjjjjjjjjjjjjjjjjjjjjjjj jjjjjjjjjjjjjjjjjjjjjjjjjjjjjjjjjjjjjjjjjjjjjjjjjjjjjjjjjjjjjjjjjjjjjjjjjjjjjjjjjjjjjjjjjjjjjjjjjjjj jjjjjjjjjjjjjjjjjjjjjjjjjjjjjjjjjjjjjjjjjjjjjjjjjjjjjjjjjjjjjjjjjjjjjjjjjjjjjjjjjjjjjjjjjjjjjjjjjjjj jjjjjjjjjjjjjjjjjjjjjjjjjjjjjjjjjjjjjjjjjjjjjjjjjjjjjjjjjjjjjjjjjjjjjjjjjjjjjjjjjjjjjjjjjjjjjjjjjjjj jjjjjjjjjjjjjjjjjjjjjjjjjjjjjjjjjjjjjjjjjjjjjjjjjjjjjjjjjjjjjjjjjjjjjjjjjjjjjjjjjjjjjjjjjjjjjjjjjjjj jjjjjjjjjjjjjjjjjjjjjjjjjjjjjjjjjjjjjjjjjjjjjjjjjjjjjjjjjjjjjjjjjjjjjjjjjjjjjjjjjjjjjjjjjjjjjjjjjjjj jjjjjjjjjjjjjjjjjjjjjjjjjjjjjjjjjjjjjjjjjjjjjjjjjjjjjjjjjjjjjjjjjjjjjjjjjjjjjjjjjjjjjjjjjjjjjjjjjjjj jjjjjjjjjjjjjjjjjjjjjjjjjjjjjjjjjjjjjjjjjjjjjjjjjjjjjjjjjjjjjjjjjjjjjjjjjjjjjjjjjjjjjjjjjjjjjjjjjjjj jjjjjjjjjjjjjjjjjjjjjjjjjjjjjjjjjjjjjjjjjjjjjjjjjjjjjjjjjjjjjjjjjjjjjjjjjjjjjjjjjjjjjjjjjjjjjjjjjjjj jjjjjjjjjjjjjjjjjjjjjjjjjjjjjjjjjjjjjjjjjjjjjjjjjjjjjjjjjjjjjjjjjjjjjjjjjjjjjjjjjjjjjjjjjjjjjjjjjjjj jjjjjjjjjjjjjjjjjjjjjjjjjjjjjjjjjjjjjjjjjjjjjjjjjjjjjjjjjjjjjjjjjjjjjjjjjjjjjjjjjjjjjjjjjjjjjjjjjjjj jjjjjjjjjjjjjjjjjjjjjjjjjjjjjjjjjjjjjjjjjjjjjjjjjjjjjjjjjjjjjjjjjjjjjjjjjjjjjjjjjjjjjjjjjjjjjjjjjjjj jjjjjjjjjjjjjjjjjjjjjjjjjjjjjjjjjjjjjjjjjjjjjjjjjjjjjjjjjjjjjjjjjjjjjjjjjjjjjjjjjjjjjjjjjjjjjjjjjjjj jjjjjjjjjjjjjjjjjjjjjjjjjjjjjjjjjjjjjjjjjjjjjjjjjjjjjjjjjjjjjjjjjjjjjjjjjjjjjjjjjjjjjjjjjjjjjjjjjjjj jjjjjjjjjjjjjjjjjjjjjjjjjjjjjjjjjjjjjjjjjjjjjjjjjjjjjjjjjjjjjjjjjjjjjjjjjjjjjjjjjjjjjjjjjjjjjjjjjjjj jjjjjjjjjjjjjjjjjjjjjjjjjjjjjjjjjjjjjjjjjjjjjjjjjjjjjjjjjjjjjjjjjjjjjjjjjjjjjjjjjjjjjjjjjjjjjjjjjjjj jjjjjjjjjjjjjjjjjjjjjjjjjjjjjjjjjjjjjjjjjjjjjjjjjjjjjjjjjjjjjjjjjjjjjjjjjjjjjjjjjjjjjjjjjjjjjjjjjjjj jjjjjjjjjjjjjjjjjjjjjjjjjjjjjjjjjjjjjjjjjjjjjjjjjjjjjjjjjjjjjjjjjjjjjjjjjjjjjjjjjjjjjjjjjjjjjjjjjjjj jjjjjjjjjjjjjjjjjjjjjjjjjjjjjjjjjjjjjjjjjjjjjjjjjjjjjjjjjjjjjjjjjjjjjjjjjjjjjjjjjjjjjjjjjjjjjjjjjjjj jjjjjjjjjjjjjjjjjjjjjjjjjjjjjjjjjjjjjjjjjjjjjjjjjjjjjjjjjjjjjjjjjjjjjjjjjjjjjjjjjjjjjjjjjjjjjjjjjjjj jjjjjjjjjjjjjjjjjjjjjjjjjjjjjjjjjjjjjjjjjjjjjjjjjjjjjjjjjjjjjjjjjjjjjjjjjjjjjjjjjjjjjjjjjjjjjjjjjjjj jjjjjjjjjjjjjjjjjjjjjjjjjjjjjjjjjjjjjjjjjjjjjjjjjjjjjjjjjjjjjjjjjjjjjjjjjjjjjjjjjjjjjjjjjjjjjjjjjjjj jjjjjjjjjjjjjjjjjjjjjjjjjjjjjjjjjjjjjjjjjjjjjjjjjjjjjjjjjjjjjjjjjjjjjjjjjjjjjjjjjjjjjjjjjjjjjjjjjjjj jjjjjjjjjjjjjjjjjjjjjjjjjjjjjjjjjjjjjjjjjjjjjjjjjjjjjjjjjjjjjjjjjjjjjjjjjjjjjjjjjjjjjjjjjjjjjjjjjjjj jjjjjjjjjjjjjjjjjjjjjjjjjjjjjjjjjjjjjjjjjjjjjjjjjjjjjjjjjjjjjjjjjjjjjjjjjjjjjjjjjjjjjjjjjjjjjjjjjjjj jjjjjjjjjjjjjjjjjjjjjjjjjjjjjjjjjjjjjjjjjjjjjjjjjjjjjjjjjjjjjjjjjjjjjjjjjjjjjjjjjjjjjjjjjjjjjjjjjjjj jjjjjjjjjjjjjjjjjjjjjjjjjjjjjjjjjjjjjjjjjjjjjjjjjjjjjjjjjjjjjjjjjjjjjjjjjjjjjjjjjjjjjjjjjjjjjjjjjjjj jjjjjjjjjjjjjjjjjjjjjjjjjjjjjjjjjjjjjjjjjjjjjjjjjjjjjjjjjjjjjjjjjjjjjjjjjjjjjjjjjjjjjjjjjjjjjjjjjjjj jjjjjjjjjjjjjjjjjjjjjjjjjjjjjjjjjjjjjjjjjjjjjjjjjjjjjjjjjjjjjjjjjjjjjjjjjjjjjjjjjjjjjjjjjjjjjjjjjjjj jjjjjjjjjjjjjjjjjjjjjjjjjjjjjjjjjjjjjjjjjjjjjjjjjjjjjjjjjjjjjjjjjjjjjjjjjjjjjjjjjjjjjjjjjjjjjjjjjjjj jjjjjjjjjjjjjjjjjjjjjjjjjjjjjjjjjjjjjjjjjjjjjjjjjjjjjjjjjjjjjjjjjjjjjjjjjjjjjjjjjjjjjjjjjjjjjjjjjjjj jjjjjjjjjjjjjjjjjjjjjjjjjjjjjjjjjjjjjjjjjjjjjjjjjjjjjjjjjjjjjjjjjjjjjjjjjjjjjjjjjjjjjjjjjjjjjjjjjjjj jjjjjjjjjjjjjjjjjjjjjjjjjjjjjjjjjjjjjjjjjjjjjjjjjjjjjjjjjjjjjjjjjjjjjjjjjjjjjjjjjjjjjjjjjjjjjjjjjjjj jjjjjjjjjjjjjjjjjjjjjjjjjjjjjjjjjjjjjjjjjjjjjjjjjjjjjjjjjjjjjjjjjjjjjjjjjjjjjjjjjjjjjjjjjjjjjjjjjjjj jjjjjjjjjjjjjjjjjjjjjjjjjjjjjjjjjjjjjjjjjjjjjjjjjjjjjjjjjjjjjjjjjjjjjjjjjjjjjjjjjjjjjjjjjjjjjjjjjjjj jjjjjjjjjjjjjjjjjjjjjjjjjjjjjjjjjjjjjjjjjjjjjjjjjjjjjjjjjjjjjjjjjjjjjjjjjjjjjjjjjjjjjjjjjjjjjjjjjjjj jjjjjjjjjjjjjjjjjjjjjjjjjjjjjjjjjjjjjjjjjjjjjjjjjjjjjjjjjjjjjjjjjjjjjjjjjjjjjjjjjjjjjjjjjjjjjjjjjjjj jjjjjjjjjjjjjjjjjjjjjjjjjjjjjjjjjjjjjjjjjjjjjjjjjjjjjjjjjjjjjjjjjjjjjjjjjjjjjjjjjjjjjjjjjjjjjjjjjjjj jjjjjjjjjjjjjjjjjjjjjjjjjjjjjjjjjjjjjjjjjjjjjjjjjjjjjjjjjjjjjjjjjjjjjjjjjjjjjjjjjjjjjjjjjjjjjjjjjjjj jjjjjjjjjjjjjjjjjjjjjjjjjjjjjjjjjjjjjjjjjjjjjjjjjjjjjjjjjjjjjjjjjjjjjjjjjjjjjjjjjjjjjjjjjjjjjjjjjjjj jjjjjjjjjjjjjjjjjjjjjjjjjjjjjjjjjjjjjjjjjjjjjjjjjjjjjjjjjjjjjjjjjjjjjjjjjjjjjjjjjjjjjjjjjjjjjjjjjjjj jjjjjjjjjjjjjjjjjjjjjjjjjjjjjjjjjjjjjjjjjjjjjjjjjjjjjjjjjjjjjjjjjjjjjjjjjjjjjjjjjjjjjjjjjjjjjjjjjjjj jjjjjjjjjjjjjjjjjjjjjjjjjjjjjjjjjjjjjjjjjjjjjjjjjjjjjjjjjjjjjjjjjjjjjjjjjjjjjjjjjjjjjjjjjjjjjjjjjjjj jjjjjjjjjjjjjjjjjjjjjjjjjjjjjjjjjjjjjjjjjjjjjjjjjjjjjjjjjjjjjjjjjjjjjjjjjjjjjjjjjjjjjjjjjjjjjjjjjjjj jjjjjjjjjjjjjjjjjjjjjjjjjjjjjjjjjjjjjjjjjjjjjjjjjjjjjjjjjjjjjjjjjjjjjjjjjjjjjjjjjjjjjjjjjjjjjjjjjjjj jjjjjjjjjjjjjjjjjjjjjjjjjjjjjjjjjjjjjjjjjjjjjjjjjjjjjjjjjjjjjjjjjjjjjjjjjjjjjjjjjjjjjjjjjjjjjjjjjjjj jjjjjjjjjjjjjjjjjjjjjjjjjjjjjjjjjjjjjjjjjjjjjjjjjjjjjjjjjjjjjjjjjjjjjjjjjjjjjjjjjjjjjjjjjjjjjjjjjjjj jjjjjjjjjjjjjjjjjjjjjjjjjjjjjjjjjjjjjjjjjjjjjjjjjjjjjjjjjjjjjjjjjjjjjjjjjjjjjjjjjjjjjjjjjjjjjjjjjjjj jjjjjjjjjjjjjjjjjjjjjjjjjjjjjjjjjjjjjjjjjjjjjjjjjjjjjjjjjjjjjjjjjjjjjjjjjjjjjjjjjjjjjjjjjjjjjjjjjjjj jjjjjjjjjjjjjjjjjjjjjjjjjjjjjjjjjjjjjjjjjjjjjjjjjjjjjjjjjjjjjjjjjjjjjjjjjjjjjjjjjjjjjjjjjjjjjjjjjjjj jjjjjjjjjjjjjjjjjjjjjjjjjjjjjjjjjjjjjjjjjjjjjjjjjjjjjjjjjjjjjjjjjjjjjjjjjjjjjjjjjjjjjjjjjjjjjjjjjjjj jjjjjjjjjjjjjjjjjjjjjjjjjjjjjjjjjjjjjjjjjjjjjjjjjjjjjjjjjjjjjjjjjjjjjjjjjjjjjjjjjjjjjjjjjjjjjjjjjjjj jjjjjjjjjjjjjjjjjjjjjjjjjjjjjjjjjjjjjjjjjjjjjjjjjjjjjjjjjjjjjjjjjjjjjjjjjjjjjjjjjjjjjjjjjjjjjjjjjjjj jjjjjjjjjjjjjjjjjjjjjjjjjjjjjjjjjjjjjjjjjjjjjjjjjjjjjjjjjjjjjjjjjjjjjjjjjjjjjjjjjjjjjjjjjjjjjjjjjjjj jjjjjjjjjjjjjjjjjjjjjjjjjjjjjjjjjjjjjjjjjjjjjjjjjjjjjjjjjjjjjjjjjjjjjjjjjjjjjjjjjjjjjjjjjjjjjjjjjjjj jjjjjjjjjjjjjjjjjjjjjjjjjjjjjjjjjjjjjjjjjjjjjjjjjjjjjjjjjjjjjjjjjjjjjjjjjjjjjjjjjjjjjjjjjjjjjjjjjjjj jjjjjjjjjjjjjjjjjjjjjjjjjjjjjjjjjjjjjjjjjjjjjjjjjjjjjjjjjjjjjjjjjjjjjjjjjjjjjjjjjjjjjjjjjjjjjjjjjjjj jjjjjjjjjjjjjjjjjjjjjjjjjjjjjjjjjjjjjjjjjjjjjjjjjjjjjjjjjjjjjjjjjjjjjjjjjjjjjjjjjjjjjjjjjjjjjjjjjjjj jjjjjjjjjjjjjjjjjjjjjjjjjjjjjjjjjjjjjjjjjjjjjjjjjjjjjjjjjjjjjjjjjjjjjjjjjjjjjjjjjjjjjjjjjjjjjjjjjjjj jjjjjjjjjjjjjjjjjjjjjjjjjjjjjjjjjjjjjjjjjjjjjjjjjjjjjjjjjjjjjjjjjjjjjjjjjjjjjjjjjjjjjjjjjjjjjjjjjjjj jjjjjjjjjjjjjjjjjjjjjjjjjjjjjjjjjjjjjjjjjjjjjjjjjjjjjjjjjjjjjjjjjjjjjjjjjjjjjjjjjjjjjjjjjjjjjjjjjjjj jjjjjjjjjjjjjjjjjjjjjjjjjjjjjjjjjjjjjjjjjjjjjjjjjjjjjjjjjjjjjjjjjjjjjjjjjjjjjjjjjjjjjjjjjjjjjjjjjjjj jjjjjjjjjjjjjjjjjjjjjjjjjjjjjjjjjjjjjjjjjjjjjjjjjjjjjjjjjjjjjjjjjjjjjjjjjjjjjjjjjjjjjjjjjjjjjjjjjjjj jjjjjjjjjjjjjjjjjjjjjjjjjjjjjjjjjjjjjjjjjjjjjjjjjjjjjjjjjjjjjjjjjjjjjjjjjjjjjjjjjjjjjjjjjjjjjjjjjjjj jjjjjjjjjjjjjjjjjjjjjjjjjjjjjjjjjjjjjjjjjjjjjjjjjjjjjjjjjjjjjjjjjjjjjjjjjjjjjjjjjjjjjjjjjjjjjjjjjjjj jjjjjjjjjjjjjjjjjjjjjjjjjjjjjjjjjjjjjjjjjjjjjjjjjjjjjjjjjjjjjjjjjjjjjjjjjjjjjjjjjjjjjjjjjjjjjjjjjjjj jjjjjjjjjjjjjjjjjjjjjjjjjjjjjjjjjjjjjjjjjjjjjjjjjjjjjjjjjjjjjjjjjjjjjjjjjjjjjjjjjjjjjjjjjjjjjjjjjjjj jjjjjjjjjjjjjjjjjjjjjjjjjjjjjjjjjjjjjjjjjjjjjjjjjjjjjjjjjjjjjjjjjjjjjjjjjjjjjjjjjjjjjjjjjjjjjjjjjjjj jjjjjjjjjjjjjjjjjjjjjjjjjjjjjjjjjjjjjjjjjjjjjjjjjjjjjjjjjjjjjjjjjjjjjjjjjjjjjjjjjjjjjjjjjjjjjjjjjjjj jjjjjjjjjjjjjjjjjjjjjjjjjjjjjjjjjjjjjjjjjjjjjjjjjjjjjjjjjjjjjjjjjjjjjjjjjjjjjjjjjjjjjjjjjjjjjjjjjjjj jjjjjjjjjjjjjjjjjjjjjjjjjjjjjjjjjjjjjjjjjjjjjjjjjjjjjjjjjjjjjjjjjjjjjjjjjjjjjjjjjjjjjjjjjjjjjjjjjjjj jjjjjjjjjjjjjjjjjjjjjjjjjjjjjjjjjjjjjjjjjjjjjjjjjjjjjjjjjjjjjjjjjjjjjjjjjjjjjjjjjjjjjjjjjjjjjjjjjjjj jjjjjjjjjjjjjjjjjjjjjjjjjjjjjjjjjjjjjjjjjjjjjjjjjjjjjjjjjjjjjjjjjjjjjjjjjjjjjjjjjjjjjjjjjjjjjjjjjjjj jjjjjjjjjjjjjjjjjjjjjjjjjjjjjjjjjjjjjjjjjjjjjjjjjjjjjjjjjjjjjjjjjjjjjjjjjjjjjjjjjjjjjjjjjjjjjjjjjjjj jjjjjjjjjjjjjjjjjjjjjjjjjjjjjjjjjjjjjjjjjjjjjjjjjjjjjjjjjjjjjjjjjjjjjjjjjjjjjjjjjjjjjjjjjjjjjjjjjjjj jjjjjjjjjjjjjjjjjjjjjjjjjjjjjjjjjjjjjjjjjjjjjjjjjjjjjjjjjjjjjjjjjjjjjjjjjjjjjjjjjjjjjjjjjjjjjjjjjjjj jjjjjjjjjjjjjjjjjjjjjjjjjjjjjjjjjjjjjjjjjjjjjjjjjjjjjjjjjjjjjjjjjjjjjjjjjjjjjjjjjjjjjjjjjjjjjjjjjjjj jjjjjjjjjjjjjjjjjjjjjjjjjjjjjjjjjjjjjjjjjjjjjjjjjjjjjjjjjjjjjjjjjjjjjjjjjjjjjjjjjjjjjjjjjjjjjjjjjjjj jjjjjjjjjjjjjjjjjjjjjjjjjjjjjjjjjjjjjjjjjjjjjjjjjjjjjjjjjjjjjjjjjjjjjjjjjjjjjjjjjjjjjjjjjjjjjjjjjjjj jjjjjjjjjjjjjjjjjjjjjjjjjjjjjjjjjjjjjjjjjjjjjjjjjjjjjjjjjjjjjjjjjjjjjjjjjjjjjjjjjjjjjjjjjjjjjjjjjjjj jjjjjjjjjjjjjjjjjjjjjjjjjjjjjjjjjjjjjjjjjjjjjjjjjjjjjjjjjjjjjjjjjjjjjjjjjjjjjjjjjjjjjjjjjjjjjjjjjjjj jjjjjjjjjjjjjjjjjjjjjjjjjjjjjjjjjjjjjjjjjjjjjjjjjjjjjjjjjjjjjjjjjjjjjjjjjjjjjjjjjjjjjjjjjjjjjjjjjjjj jjjjjjjjjjjjjjjjjjjjjjjjjjjjjjjjjjjjjjjjjjjjjjjjjjjjjjjjjjjjjjjjjjjjjjjjjjjjjjjjjjjjjjjjjjjjjjjjjjjj jjjjjjjjjjjjjjjjjjjjjjjjjjjjjjjjjjjjjjjjjjjjjjjjjjjjjjjjjjjjjjjjjjjjjjjjjjjjjjjjjjjjjjjjjjjjjjjjjjjj jjjjjjjjjjjjjjjjjjjjjjjjjjjjjjjjjjjjjjjjjjjjjjjjjjjjjjjjjjjjjjjjjjjjjjjjjjjjjjjjjjjjjjjjjjjjjjjjjjjj jjjjjjjjjjjjjjjjjjjjjjjjjjjjjjjjjjjjjjjjjjjjjjjjjjjjjjjjjjjjjjjjjjjjjjjjjjjjjjjjjjjjjjjjjjjjjjjjjjjj jjjjjjjjjjjjjjjjjjjjjjjjjjjjjjjjjjjjjjjjjjjjjjjjjjjjjjjjjjjjjjjjjjjjjjjjjjjjjjjjjjjjjjjjjjjjjjjjjjjj jjjjjjjjjjjjjjjjjjjjjjjjjjjjjjjjjjjjjjjjjjjjjjjjjjjjjjjjjjjjjjjjjjjjjjjjjjjjjjjjjjjjjjjjjjjjjjjjjjjj jjjjjjjjjjjjjjjjjjjjjjjjjjjjjjjjjjjjjjjjjjjjjjjjjjjjjjjjjjjjjjjjjjjjjjjjjjjjjjjjjjjjjjjjjjjjjjjjjjjj jjjjjjjjjjjjjjjjjjjjjjjjjjjjjjjjjjjjjjjjjjjjjjjjjjjjjjjjjjjjjjjjjjjjjjjjjjjjjjjjjjjjjjjjjjjjjjjjjjjj jjjjjjjjjjjjjjjjjjjjjjjjjjjjjjjjjjjjjjjjjjjjjjjjjjjjjjjjjjjjjjjjjjjjjjjjjjjjjjjjjjjjjjjjjjjjjjjjjjjj jjjjjjjjjjjjjjjjjjjjjjjjjjjjjjjjjjjjjjjjjjjjjjjjjjjjjjjjjjjjjjjjjjjjjjjjjjjjjjjjjjjjjjjjjjjjjjjjjjjj jjjjjjjjjjjjjjjjjjjjjjjjjjjjjjjjjjjjjjjjjjjjjjjjjjjjjjjjjjjjjjjjjjjjjjjjjjjjjjjjjjjjjjjjjjjjjjjjjjjj jjjjjjjjjjjjjjjjjjjjjjjjjjjjjjjjjjjjjjjjjjjjjjjjjjjjjjjjjjjjjjjjjjjjjjjjjjjjjjjjjjjjjjjjjjjjjjjjjjjj jjjjjjjjjjjjjjjjjjjjjjjjjjjjjjjjjjjjjjjjjjjjjjjjjjjjjjjjjjjjjjjjjjjjjjjjjjjjjjjjjjjjjjjjjjjjjjjjjjjj jjjjjjjjjjjjjjjjjjjjjjjjjjjjjjjjjjjjjjjjjjjjjjjjjjjjjjjjjjjjjjjjjjjjjjjjjjjjjjjjjjjjjjjjjjjjjjjjjjjj jjjjjjjjjjjjjjjjjjjjjjjjjjjjjjjjjjjjjjjjjjjjjjjjjjjjjjjjjjjjjjjjjjjjjjjjjjjjjjjjjjjjjjjjjjjjjjjjjjjj jjjjjjjjjjjjjjjjjjjjjjjjjjjjjjjjjjjjjjjjjjjjjjjjjjjjjjjjjjjjjjjjjjjjjjjjjjjjjjjjjjjjjjjjjjjjjjjjjjjj jjjjjjjjjjjjjjjjjjjjjjjjjjjjjjjjjjjjjjjjjjjjjjjjjjjjjjjjjjjjjjjjjjjjjjjjjjjjjjjjjjjjjjjjjjjjjjjjjjjj jjjjjjjjjjjjjjjjjjjjjjjjjjjjjjjjjjjjjjjjjjjjjjjjjjjjjjjjjjjjjjjjjjjjjjjjjjjjjjjjjjjjjjjjjjjjjjjjjjjj jjjjjjjjjjjjjjjjjjjjjjjjjjjjjjjjjjjjjjjjjjjjjjjjjjjjjjjjjjjjjjjjjjjjjjjjjjjjjjjjjjjjjjjjjjjjjjjjjjjj jjjjjjjjjjjjjjjjjjjjjjjjjjjjjjjjjjjjjjjjjjjjjjjjjjjjjjjjjjjjjjjjjjjjjjjjjjjjjjjjjjjjjjjjjjjjjjjjjjjj jjjjjjjjjjjjjjjjjjjjjjjjjjjjjjjjjjjjjjjjjjjjjjjjjjjjjjjjjjjjjjjjjjjjjjjjjjjjjjjjjjjjjjjjjjjjjjjjjjjj jjjjjjjjjjjjjjjjjjjjjjjjjjjjjjjjjjjjjjjjjjjjjjjjjjjjjjjjjjjjjjjjjjjjjjjjjjjjjjjjjjjjjjjjjjjjjjjjjjjj jjjjjjjjjjjjjjjjjjjjjjjjjjjjjjjjjjjjjjjjjjjjjjjjjjjjjjjjjjjjjjjjjjjjjjjjjjjjjjjjjjjjjjjjjjjjjjjjjjjj jjjjjjjjjjjjjjjjjjjjjjjjjjjjjjjjjjjjjjjjjjjjjjjjjjjjjjjjjjjjjjjjjjjjjjjjjjjjjjjjjjjjjjjjjjjjjjjjjjjj jjjjjjjjjjjjjjjjjjjjjjjjjjjjjjjjjjjjjjjjjjjjjjjjjjjjjjjjjjjjjjjjjjjjjjjjjjjjjjjjjjjjjjjjjjjjjjjjjjjj jjjjjjjjjjjjjjjjjjjjjjjjjjjjjjjjjjjjjjjjjjjjjjjjjjjjjjjjjjjjjjjjjjjjjjjjjjjjjjjjjjjjjjjjjjjjjjjjjjjj jjjjjjjjjjjjjjjjjjjjjjjjjjjjjjjjjjjjjjjjjjjjjjjjjjjjjjjjjjjjjjjjjjjjjjjjjjjjjjjjjjjjjjjjjjjjjjjjjjjj jjjjjjjjjjjjjjjjjjjjjjjjjjjjjjjjjjjjjjjjjjjjjjjjjjjjjjjjjjjjjjjjjjjjjjjjjjjjjjjjjjjjjjjjjjjjjjjjjjjj jjjjjjjjjjjjjjjjjjjjjjjjjjjjjjjjjjjjjjjjjjjjjjjjjjjjjjjjjjjjjjjjjjjjjjjjjjjjjjjjjjjjjjjjjjjjjjjjjjjj jjjjjjjjjjjjjjjjjjjjjjjjjjjjjjjjjjjjjjjjjjjjjjjjjjjjjjjjjjjjjjjjjjjjjjjjjjjjjjjjjjjjjjjjjjjjjjjjjjjj jjjjjjjjjjjjjjjjjjjjjjjjjjjjjjjjjjjjjjjjjjjjjjjjjjjjjjjjjjjjjjjjjjjjjjjjjjjjjjjjjjjjjjjjjjjjjjjjjjjj jjjjjjjjjjjjjjjjjjjjjjjjjjjjjjjjjjjjjjjjjjjjjjjjjjjjjjjjjjjjjjjjjjjjjjjjjjjjjjjjjjjjjjjjjjjjjjjjjjjj jjjjjjjjjjjjjjjjjjjjjjjjjjjjjjjjjjjjjjjjjjjjjjjjjjjjjjjjjjjjjjjjjjjjjjjjjjjjjjjjjjjjjjjjjjjjjjjjjjjj jjjjjjjjjjjjjjjjjjjjjjjjjjjjjjjjjjjjjjjjjjjjjjjjjjjjjjjjjjjjjjjjjjjjjjjjjjjjjjjjjjjjjjjjjjjjjjjjjjjj jjjjjjjjjjjjjjjjjjjjjjjjjjjjjjjjjjjjjjjjjjjjjjjjjjjjjjjjjjjjjjjjjjjjjjjjjjjjjjjjjjjjjjjjjjjjjjjjjjjj jjjjjjjjjjjjjjjjjjjjjjjjjjjjjjjjjjjjjjjjjjjjjjjjjjjjjjjjjjjjjjjjjjjjjjjjjjjjjjjjjjjjjjjjjjjjjjjjjjjj jjjjjjjjjjjjjjjjjjjjjjjjjjjjjjjjjjjjjjjjjjjjjjjjjjjjjjjjjjjjjjjjjjjjjjjjjjjjjjjjjjjjjjjjjjjjjjjjjjjj jjjjjjjjjjjjjjjjjjjjjjjjjjjjjjjjjjjjjjjjjjjjjjjjjjjjjjjjjjjjjjjjjjjjjjjjjjjjjjjjjjjjjjjjjjjjjjjjjjjj jjjjjjjjjjjjjjjjjjjjjjjjjjjjjjjjjjjjjjjjjjjjjjjjjjjjjjjjjjjjjjjjjjjjjjjjjjjjjjjjjjjjjjjjjjjjjjjjjjjj jjjjjjjjjjjjjjjjjjjjjjjjjjjjjjjjjjjjjjjjjjjjjjjjjjjjjjjjjjjjjjjjjjjjjjjjjjjjjjjjjjjjjjjjjjjjjjjjjjjj jjjjjjjjjjjjjjjjjjjjjjjjjjjjjjjjjjjjjjjjjjjjjjjjjjjjjjjjjjjjjjjjjjjjjjjjjjjjjjjjjjjjjjjjjjjjjjjjjjjj jjjjjjjjjjjjjjjjjjjjjjjjjjjjjjjjjjjjjjjjjjjjjjjjjjjjjjjjjjjjjjjjjjjjjjjjjjjjjjjjjjjjjjjjjjjjjjjjjjjj jjjjjjjjjjjjjjjjjjjjjjjjjjjjjjjjjjjjjjjjjjjjjjjjjjjjjjjjjjjjjjjjjjjjjjjjjjjjjjjjjjjjjjjjjjjjjjjjjjjj jjjjjjjjjjjjjjjjjjjjjjjjjjjjjjjjjjjjjjjjjjjjjjjjjjjjjjjjjjjjjjjjjjjjjjjjjjjjjjjjjjjjjjjjjjjjjjjjjjjj jjjjjjjjjjjjjjjjjjjjjjjjjjjjjjjjjjjjjjjjjjjjjjjjjjjjjjjjjjjjjjjjjjjjjjjjjjjjjjjjjjjjjjjjjjjjjjjjjjjj jjjjjjjjjjjjjjjjjjjjjjjjjjjjjjjjjjjjjjjjjjjjjjjjjjjjjjjjjjjjjjjjjjjjjjjjjjjjjjjjjjjjjjjjjjjjjjjjjjjj jjjjjjjjjjjjjjjjjjjjjjjjjjjjjjjjjjjjjjjjjjjjjjjjjjjjjjjjjjjjjjjjjjjjjjjjjjjjjjjjjjjjjjjjjjjjjjjjjjjj jjjjjjjjjjjjjjjjjjjjjjjjjjjjjjjjjjjjjjjjjjjjjjjjjjjjjjjjjjjjjjjjjjjjjjjjjjjjjjjjjjjjjjjjjjjjjjjjjjjj jjjjjjjjjjjjjjjjjjjjjjjjjjjjjjjjjjjjjjjjjjjjjjjjjjjjjjjjjjjjjjjjjjjjjjjjjjjjjjjjjjjjjjjjjjjjjjjjjjjj jjjjjjjjjjjjjjjjjjjjjjjjjjjjjjjjjjjjjjjjjjjjjjjjjjjjjjjjjjjjjjjjjjjjjjjjjjjjjjjjjjjjjjjjjjjjjjjjjjjj jjjjjjjjjjjjjjjjjjjjjjjjjjjjjjjjjjjjjjjjjjjjjjjjjjjjjjjjjjjjjjjjjjjjjjjjjjjjjjjjjjjjjjjjjjjjjjjjjjjj jjjjjjjjjjjjjjjjjjjjjjjjjjjjjjjjjjjjjjjjjjjjjjjjjjjjjjjjjjjjjjjjjjjjjjjjjjjjjjjjjjjjjjjjjjjjjjjjjjjj jjjjjjjjjjjjjjjjjjjjjjjjjjjjjjjjjjjjjjjjjjjjjjjjjjjjjjjjjjjjjjjjjjjjjjjjjjjjjjjjjjjjjjjjjjjjjjjjjjjj jjjjjjjjjjjjjjjjjjjjjjjjjjjjjjjjjjjjjjjjjjjjjjjjjjjjjjjjjjjjjjjjjjjjjjjjjjjjjjjjjjjjjjjjjjjjjjjjjjjj jjjjjjjjjjjjjjjjjjjjjjjjjjjjjjjjjjjjjjjjjjjjjjjjjjjjjjjjjjjjjjjjjjjjjjjjjjjjjjjjjjjjjjjjjjjjjjjjjjjj jjjjjjjjjjjjjjjjjjjjjjjjjjjjjjjjjjjjjjjjjjjjjjjjjjjjjjjjjjjjjjjjjjjjjjjjjjjjjjjjjjjjjjjjjjjjjjjjjjjj jjjjjjjjjjjjjjjjjjjjjjjjjjjjjjjjjjjjjjjjjjjjjjjjjjjjjjjjjjjjjjjjjjjjjjjjjjjjjjjjjjjjjjjjjjjjjjjjjjjj jjjjjjjjjjjjjjjjjjjjjjjjjjjjjjjjjjjjjjjjjjjjjjjjjjjjjjjjjjjjjjjjjjjjjjjjjjjjjjjjjjjjjjjjjjjjjjjjjjjj jjjjjjjjjjjjjjjjjjjjjjjjjjjjjjjjjjjjjjjjjjjjjjjjjjjjjjjjjjjjjjjjjjjjjjjjjjjjjjjjjjjjjjjjjjjjjjjjjjjj jjjjjjjjjjjjjjjjjjjjjjjjjjjjjjjjjjjjjjjjjjjjjjjjjjjjjjjjjjjjjjjjjjjjjjjjjjjjjjjjjjjjjjjjjjjjjjjjjjjj jjjjjjjjjjjjjjjjjjjjjjjjjjjjjjjjjjjjjjjjjjjjjjjjjjjjjjjjjjjjjjjjjjjjjjjjjjjjjjjjjjjjjjjjjjjjjjjjjjjj jjjjjjjjjjjjjjjjjjjjjjjjjjjjjjjjjjjjjjjjjjjjjjjjjjjjjjjjjjjjjjjjjjjjjjjjjjjjjjjjjjjjjjjjjjjjjjjjjjjj jjjjjjjjjjjjjjjjjjjjjjjjjjjjjjjjjjjjjjjjjjjjjjjjjjjjjjjjjjjjjjjjjjjjjjjjjjjjjjjjjjjjjjjjjjjjjjjjjjjj jjjjjjjjjjjjjjjjjjjjjjjjjjjjjjjjjjjjjjjjjjjjjjjjjjjjjjjjjjjjjjjjjjjjjjjjjjjjjjjjjjjjjjjjjjjjjjjjjjjj jjjjjjjjjjjjjjjjjjjjjjjjjjjjjjjjjjjjjjjjjjjjjjjjjjjjjjjjjjjjjjjjjjjjjjjjjjjjjjjjjjjjjjjjjjjjjjjjjjjj jjjjjjjjjjjjjjjjjjjjjjjjjjjjjjjjjjjjjjjjjjjjjjjjjjjjjjjjjjjjjjjjjjjjjjjjjjjjjjjjjjjjjjjjjjjjjjjjjjjj jjjjjjjjjjjjjjjjjjjjjjjjjjjjjjjjjjjjjjjjjjjjjjjjjjjjjjjjjjjjjjjjjjjjjjjjjjjjjjjjjjjjjjjjjjjjjjjjjjjj jjjjjjjjjjjjjjjjjjjjjjjjjjjjjjjjjjjjjjjjjjjjjjjjjjjjjjjjjjjjjjjjjjjjjjjjjjjjjjjjjjjjjjjjjjjjjjjjjjjj jjjjjjjjjjjjjjjjjjjjjjjjjjjjjjjjjjjjjjjjjjjjjjjjjjjjjjjjjjjjjjjjjjjjjjjjjjjjjjjjjjjjjjjjjjjjjjjjjjjj jjjjjjjjjjjjjjjjjjjjjjjjjjjjjjjjjjjjjjjjjjjjjjjjjjjjjjjjjjjjjjjjjjjjjjjjjjjjjjjjjjjjjjjjjjjjjjjjjjjj jjjjjjjjjjjjjjjjjjjjjjjjjjjjjjjjjjjjjjjjjjjjjjjjjjjjjjjjjjjjjjjjjjjjjjjjjjjjjjjjjjjjjjjjjjjjjjjjjjjj jjjjjjjjjjjjjjjjjjjjjjjjjjjjjjjjjjjjjjjjjjjjjjjjjjjjjjjjjjjjjjjjjjjjjjjjjjjjjjjjjjjjjjjjjjjjjjjjjjjj jjjjjjjjjjjjjjjjjjjjjjjjjjjjjjjjjjjjjjjjjjjjjjjjjjjjjjjjjjjjjjjjjjjjjjjjjjjjjjjjjjjjjjjjjjjjjjjjjjjj jjjjjjjjjjjjjjjjjjjjjjjjjjjjjjjjjjjjjjjjjjjjjjjjjjjjjjjjjjjjjjjjjjjjjjjjjjjjjjjjjjjjjjjjjjjjjjjjjjjj jjjjjjjjjjjjjjjjjjjjjjjjjjjjjjjjjjjjjjjjjjjjjjjjjjjjjjjjjjjjjjjjjjjjjjjjjjjjjjjjjjjjjjjjjjjjjjjjjjjj jjjjjjjjjjjjjjjjjjjjjjjjjjjjjjjjjjjjjjjjjjjjjjjjjjjjjjjjjjjjjjjjjjjjjjjjjjjjjjjjjjjjjjjjjjjjjjjjjjjj jjjjjjjjjjjjjjjjjjjjjjjjjjjjjjjjjjjjjjjjjjjjjjjjjjjjjjjjjjjjjjjjjjjjjjjjjjjjjjjjjjjjjjjjjjjjjjjjjjjj jjjjjjjjjjjjjjjjjjjjjjjjjjjjjjjjjjjjjjjjjjjjjjjjjjjjjjjjjjjjjjjjjjjjjjjjjjjjjjjjjjjjjjjjjjjjjjjjjjjj jjjjjjjjjjjjjjjjjjjjjjjjjjjjjjjjjjjjjjjjjjjjjjjjjjjjjjjjjjjjjjjjjjjjjjjjjjjjjjjjjjjjjjjjjjjjjjjjjjjj jjjjjjjjjjjjjjjjjjjjjjjjjjjjjjjjjjjjjjjjjjjjjjjjjjjjjjjjjjjjjjjjjjjjjjjjjjjjjjjjjjjjjjjjjjjjjjjjjjjj jjjjjnjjjjjjjjjjjjjjjjjjjjjjjjjjjjjjjjjjjjjjjjjjjjjjjjjjjjjjjjjjjjjjjjjjjjjjjjjjjjjjjjjjjjjjjjjjjjjj jjjjjjjjjjjjjjjjjjjjjjjjjjjjjjjjjjjjjjjjjjjjjjjjjjjjjjjjjjjjjjjjjjjjjjjjjjjjjjjjjjjjjjjjjjjjjjjjjjjj jjjjjjjjjjjjjjjjjjjjjjjjjjjjjjjjjjjjjjjjjjjjjjjjjjjjjjjjjjjjjjjjjjjjjjjjjjjjjjjjjjjjjjjjjjjjjjjjjjjj jjjjjjjjjjjjjjjjjjjjjjjjjjjjjjjjjjjjjjjjjjjjjjjjjjjjjjjjjjjjjjjjjjjjjjjjjjjjjjjjjjjjjjjjjjjjjjjjjjjj jjjjjjjjjjjjjjjjjjjjjjjjjjjjjjjjjjjjjjjjjjjjjjjjjjjjjjjjjjjjjjjjjjjjjjjjjjjjjjjjjjjjjjjjjjjjjjjjjjjj jjjjjjjjjjjjjjjjjjjjjjjjjjjjjjjjjjjjjjjjjjjjjjjjjjjjjjjjjjjjjjjjjjjjjjjjjjjjjjjjjjjjjjjjjjjjjjjjjjjj jjjjjjjjjjjjjjjjjjjjjjjjjjjjjjjjjjjjjjjjjjjjjjjjjjjjjjjjjjjjjjjjjjjjjjjjjjjjjjjjjjjjjjjjjjjjjjjjjjjj jjjjjjjjjjjjjjjjjjjjjjjjjjjjjjjjjjjjjjjjjjjjjjjjjjjjjjjjjjjjjjjjjjjjjjjjjjjjjjjjjjjjjjjjjjjjjjjjjjjj jjjjjjjjjjjjjjjjjjjjjjjjjjjjjjjjjjjjjjjjjjjjjjjjjjjjjjjjjjjjjjjjjjjjjjjjjjjjjjjjjjjjjjjjjjjjjjjjjjjj jjjjjjjjjjjjjjjjjjjjjjjjjjjjjjjjjjjjjjjjjjjjjjjjjjjjjjjjjjjjjjjjjjjjjjjjjjjjjjjjjjjjjjjjjjjjjjjjjjjj jjjjjjjjjjjjjjjjjjjjjjjjjjjjjjjjjjjjjjjjjjjjjjjjjjjjjjjjjjjjjjjjjjjjjjjjjjjjjjjjjjjjjjjjjjjjjjjjjjjj jjjjjjjjjjjjjjjjjjjjjjjjjjjjjjjjjjjjjjjjjjjjjjjjjjjjjjjjjjjjjjjjjjjjjjjjjjjjjjjjjjjjjjjjjjjjjjjjjjjj jjjjjjjjjjjjjjjjjjjjjjjjjjjjjjjjjjjjjjjjjjjjjjjjjjjjjjjjjjjjjjjjjjjjjjjjjjjjjjjjjjjjjjjjjjjjjjjjjjjj jjjjjjjjjjjjjjjjjjjjjjjjjjjjjjjjjjjjjjjjjjjjjjjjjjjjjjjjjjjjjjjjjjjjjjjjjjjjjjjjjjjjjjjjjjjjjjjjjjjj jjjjjjjjjjjjjjjjjjjjjjjjjjjjjjjjjjjjjjjjjjjjjjjjjjjjjjjjjjjjjjjjjjjjjjjjjjjjjjjjjjjjjjjjjjjjjjjjjjjj jjjjjjjjjjjjjjjjjjjjjjjjjjjjjjjjjjjjjjjjjjjjjjjjjjjjjjjjjjjjjjjjjjjjjjjjjjjjjjjjjjjjjjjjjjjjjjjjjjjj jjjjjjjjjjjjjjjjjjjjjjjjjjjjjjjjjjjjjjjjjjjjjjjjjjjjjjjjjjjjjjjjjjjjjjjjjjjjjjjjjjjjjjjjjjjjjjjjjjjj jjjjjjjjjjjjjjjjjjjjjjjjjjjjjjjjjjjjjjjjjjjjjjjjjjjjjjjjjjjjjjjjjjjjjjjjjjjjjjjjjjjjjjjjjjjjjjjjjjjj jjjjjjjjjjjjjjjjjjjjjjjjjjjjjjjjjjjjjjjjjjjjjjjjjjjjjjjjjjjjjjjjjjjjjjjjjjjjjjjjjjjjjjjjjjjjjjjjjjjj jjjjjjjjjjjjjjjjjjjjjjjjjjjjjjjjjjjjjjjjjjjjjjjjjjjjjjjjjjjjjjjjjjjjjjjjjjjjjjjjjjjjjjjjjjjjjjjjjjjj jjjjjjjjjjjjjjjjjjjjjjjjjjjjjjjjjjjjjjjjjjjjjjjjjjjjjjjjjjjjjjjjjjjjjjjjjjjjjjjjjjjjjjjjjjjjjjjjjjjj jjjjjjjjjjjjjjjjjjjjjjjjjjjjjjjjjjjjjjjjjjjjjjjjjjjjjjjjjjjjjjjjjjjjjjjjjjjjjjjjjjjjjjjjjjjjjjjjjjjj jjjjjjjjjjjjjjjjjjjjjjjjjjjjjjjjjjjjjjjjjjjjjjjjjjjjjjjjjjjjjjjjjjjjjjjjjjjjjjjjjjjjjjjjjjjjjjjjjjjj jjjjjjjjjjjjjjjjjjjjjjjjjjjjjjjjjjjjjjjjjjjjjjjjjjjjjjjjjjjjjjjjjjjjjjjjjjjjjjjjjjjjjjjjjjjjjjjjjjjj jjjjjjjjjjjjjjjjjjjjjjjjjjjjjjjjjjjjjjjjjjjjjjjjjjjjjjjjjjjjjjjjjjjjjjjjjjjjjjjjjjjjjjjjjjjjjjjjjjjj jjjjjjjjjjjjjjjjjjjjjjjjjjjjjjjjjjjjjjjjjjjjjjjjjjjjjjjjjjjjjjjjjjjjjjjjjjjjjjjjjjjjjjjjjjjjjjjjjjjj jjjjjjjjjjjjjjjjjjjjjjjjjjjjjjjjjjjjjjjjjjjjjjjjjjjjjjjjjjjjjjjjjjjjjjjjjjjjjjjjjjjjjjjjjjjjjjjjjjjj jjjjjjjjjjjjjjjjjjjjjjjjjjjjjjjjjjjjjjjjjjjjjjjjjjjjjjjjjjjjjjjjjjjjjjjjjjjjjjjjjjjjjjjjjjjjjjjjjjjj jjjjjjjjjjjjjjjjjjjjjjjjjjjjjjjjjjjjjjjjjjjjjjjjjjjjjjjjjjjjjjjjjjjjjjjjjjjjjjjjjjjjjjjjjjjjjjjjjjjj jjjjjjjjjjjjjjjjjjjjjjjjjjjjjjjjjjjjjjjjjjjjjjjjjjjjjjjjjjjjjjjjjjjjjjjjjjjjjjjjjjjjjjjjjjjjjjjjjjjj jjjjjjjjjjjjjjjjjjjjjjjjjjjjjjjjjjjjjjjjjjjjjjjjjjjjjjjjjjjjjjjjjjjjjjjjjjjjjjjjjjjjjjjjjjjjjjjjjjjj jjjjjjjjjjjjjjjjjjjjjjjjjjjjjjjjjjjjjjjjjjjjjjjjjjjjjjjjjjjjjjjjjjjjjjjjjjjjjjjjjjjjjjjjjjjjjjjjjjjj jjjjjjjjjjjjjjjjjjjjjjjjjjjjjjjjjjjjjjjjjjjjjjjjjjjjjjjjjjjjjjjjjjjjjjjjjjjjjjjjjjjjjjjjjjjjjjjjjjjj jjjjjjjjjjjjjjjjjjjjjjjjjjjjjjjjjjjjjjjjjjjjjjjjjjjjjjjjjjjjjjjjjjjjjjjjjjjjjjjjjjjjjjjjjjjjjjjjjjjj jjjjjjjjjjjjjjjjjjjjjjjjjjjjjjjjjjjjjjjjjjjjjjjjjjjjjjjjjjjjjjjjjjjjjjjjjjjjjjjjjjjjjjjjjjjjjjjjjjjj jjjjjjjjjjjjjjjjjjjjjjjjjjjjjjjjjjjjjjjjjjjjjjjjjjjjjjjjjjjjjjjjjjjjjjjjjjjjjjjjjjjjjjjjjjjjjjjjjjjj jjjjjjjjjjjjjjjjjjjjjjjjjjjjjjjjjjjjjjjjjjjjjjjjjjjjjjjjjjjjjjjjjjjjjjjjjjjjjjjjjjjjjjjjjjjjjjjjjjjj jjjjjjjjjjjjjjjjjjjjjjjjjjjjjjjjjjjjjjjjjjjjjjjjjjjjjjjjjjjjjjjjjjjjjjjjjjjjjjjjjjjjjjjjjjjjjjjjjjjj jjjjjjjjjjjjjjjjjjjjjjjjjjjjjjjjjjjjjjjjjjjjjjjjjjjjjjjjjjjjjjjjjjjjjjjjjjjjjjjjjjjjjjjjjjjjjjjjjjjj jjjjjjjjjjjjjjjjjjjjjjjjjjjjjjjjjjjjjjjjjjjjjjjjjjjjjjjjjjjjjjjjjjjjjjjjjjjjjjjjjjjjjjjjjjjjjjjjjjjj jjjjjjjjjjjjjjjjjjjjjjjjjjjjjjjjjjjjjjjjjjjjjjjjjjjjjjjjjjjjjjjjjjjjjjjjjjjjjjjjjjjjjjjjjjjjjjjjjjjj jjjjjjjjjjjjjjjjjjjjjjjjjjjjjjjjjjjjjjjjjjjjjjjjjjjjjjjjjjjjjjjjjjjjjjjjjjjjjjjjjjjjjjjjjjjjjjjjjjjj jjjjjjjjjjjjjjjjjjjjjjjjjjjjjjjjjjjjjjjjjjjjjjjjjjjjjjjjjjjjjjjjjjjjjjjjjjjjjjjjjjjjjjjjjjjjjjjjjjjj jjjjjjjjjjjjjjjjjjjjjjjjjjjjjjjjjjjjjjjjjjjjjjjjjjjjjjjjjjjjjjjjjjjjjjjjjjjjjjjjjjjjjjjjjjjjjjjjjjjj jjjjjjjjjjjjjjjjjjjjjjjjjjjjjjjjjjjjjjjjjjjjjjjjjjjjjjjjjjjjjjjjjjjjjjjjjjjjjjjjjjjjjjjjjjjjjjjjjjjj jjjjjjjjjjjjjjjjjjjjjjjjjjjjjjjjjjjjjjjjjjjjjjjjjjjjjjjjjjjjjjjjjjjjjjjjjjjjjjjjjjjjjjjjjjjjjjjjjjjj jjjjjjjjjjjjjjjjjjjjjjjjjjjjjjjjjjjjjjjjjjjjjjjjjjjjjjjjjjjjjjjjjjjjjjjjjjjjjjjjjjjjjjjjjjjjjjjjjjjj jjjjjjjjjjjjjjjjjjjjjjjjjjjjjjjjjjjjjjjjjjjjjjjjjjjjjjjjjjjjjjjjjjjjjjjjjjjjjjjjjjjjjjjjjjjjjjjjjjjj jjjjjjjjjjjjjjjjjjjjjjjjjjjjjjjjjjjjjjjjjjjjjjjjjjjjjjjjjjjjjjjjjjjjjjjjjjjjjjjjjjjjjjjjjjjjjjjjjjjj jjjjjjjjjjjjjjjjjjjjjjjjjjjjjjjjjjjjjjjjjjjjjjjjjjjjjjjjjjjjjjjjjjjjjjjjjjjjjjjjjjjjjjjjjjjjjjjjjjjj jjjjjjjjjjjjjjjjjjjjjjjjjjjjjjjjjjjjjjjjjjjjjjjjjjjjjjjjjjjjjjjjjjjjjjjjjjjjjjjjjjjjjjjjjjjjjjjjjjjj jjjjjjjjjjjjjjjjjjjjjjjjjjjjjjjjjjjjjjjjjjjjjjjjjjjjjjjjjjjjjjjjjjjjjjjjjjjjjjjjjjjjjjjjjjjjjjjjjjjj jjjjjjjjjjjjjjjjjjjjjjjjjjjjjjjjjjjjjjjjjjjjjjjjjjjjjjjjjjjjjjjjjjjjjjjjjjjjjjjjjjjjjjjjjjjjjjjjjjjj jjjjjjjjjjjjjjjjjjjjjjjjjjjjjjjjjjjjjjjjjjjjjjjjjjjjjjjjjjjjjjjjjjjjjjjjjjjjjjjjjjjjjjjjjjjjjjjjjjjj jjjjjjjjjjjjjjjjjjjjjjjjjjjjjjjjjjjjjjjjjjjjjjjjjjjjjjjjjjjjjjjjjjjjjjjjjjjjjjjjjjjjjjjjjjjjjjjjjjjj jjjjjjjjjjjjjjjjjjjjjjjjjjjjjjjjjjjjjjjjjjjjjjjjjjjjjjjjjjjjjjjjjjjjjjjjjjjjjjjjjjjjjjjjjjjjjjjjjjjj jjjjjjjjjjjjjjjjjjjjjjjjjjjjjjjjjjjjjjjjjjjjjjjjjjjjjjjjjjjjjjjjjjjjjjjjjjjjjjjjjjjjjjjjjjjjjjjjjjjj jjjjjjjjjjjjjjjjjjjjjjjjjjjjjjjjjjjjjjjjjjjjjjjjjjjjjjjjjjjjjjjjjjjjjjjjjjjjjjjjjjjjjjjjjjjjjjjjjjjj jjjjjjjjjjjjjjjjjjjjjjjjjjjjjjjjjjjjjjjjjjjjjjjjjjjjjjjjjjjjjjjjjjjjjjjjjjjjjjjjjjjjjjjjjjjjjjjjjjjj jjjjjjjjjjjjjjjjjjjjjjjjjjjjjjjjjjjjjjjjjjjjjjjjjjjjjjjjjjjjjjjjjjjjjjjjjjjjjjjjjjjjjjjjjjjjjjjjjjjj jjjjjjjjjjjjjjjjjjjjjjjjjjjjjjjjjjjjjjjjjjjjjjjjjjjjjjjjjjjjjjjjjjjjjjjjjjjjjjjjjjjjjjjjjjjjjjjjjjjj jjjjjjjjjjjjjjjjjjjjjjjjjjjjjjjjjjjjjjjjjjjjjjjjjjjjjjjjjjjjjjjjjjjjjjjjjjjjjjjjjjjjjjjjjjjjjjjjjjjj jjjjjjjjjjjjjjjjjjjjjjjjjjjjjjjjjjjjjjjjjjjjjjjjjjjjjjjjjjjjjjjjjjjjjjjjjjjjjjjjjjjjjjjjjjjjjjjjjjjj jjjjjjjjjjjjjjjjjjjjjjjjjjjjjjjjjjjjjjjjjjjjjjjjjjjjjjjjjjjjjjjjjjjjjjjjjjjjjjjjjjjjjjjjjjjjjjjjjjjj jjjjjjjjjjjjjjjjjjjjjjjjjjjjjjjjjjjjjjjjjjjjjjjjjjjjjjjjjjjjjjjjjjjjjjjjjjjjjjjjjjjjjjjjjjjjjjjjjjjj jjjjjjjjjjjjjjjjjjjjjjjjjjjjjjjjjjjjjjjjjjjjjjjjjjjjjjjjjjjjjjjjjjjjjjjjjjjjjjjjjjjjjjjjjjjjjjjjjjjj jjjjjjjjjjjjjjjjjjjjjjjjjjjjjjjjjjjjjjjjjjjjjjjjjjjjjjjjjjjjjjjjjjjjjjjjjjjjjjjjjjjjjjjjjjjjjjjjjjjj jjjjjjjjjjjjjjjjjjjjjjjjjjjjjjjjjjjjjjjjjjjjjjjjjjjjjjjjjjjjjjjjjjjjjjjjjjjjjjjjjjjjjjjjjjjjjjjjjjjj jjjjjjjjjjjjjjjjjjjjjjjjjjjjjjjjjjjjjjjjjjjjjjjjjjjjjjjjjjjjjjjjjjjjjjjjjjjjjjjjjjjjjjjjjjjjjjjjjjjj jjjjjjjjjjjjjjjjjjjjjjjjjjjjjjjjjjjjjjjjjjjjjjjjjjjjjjjjjjjjjjjjjjjjjjjjjjjjjjjjjjjjjjjjjjjjjjjjjjjj jjjjjjjjjjjjjjjjjjjjjjjjjjjjjjjjjjjjjjjjjjjjjjjjjjjjjjjjjjjjjjjjjjjjjjjjjjjjjjjjjjjjjjjjjjjjjjjjjjjj jjjjjjjjjjjjjjjjjjjjjjjjjjjjjjjjjjjjjjjjjjjjjjjjjjjjjjjjjjjjjjjjjjjjjjjjjjjjjjjjjjjjjjjjjjjjjjjjjjjj jjjjjjjjjjjjjjjjjjjjjjjjjjjjjjjjjjjjjjjjjjjjjjjjjjjjjjjjjjjjjjjjjjjjjjjjjjjjjjjjjjjjjjjjjjjjjjjjjjjj jjjjjjjjjjjjjjjjjjjjjjjjjjjjjjjjjjjjjjjjjjjjjjjjjjjjjjjjjjjjjjjjjjjjjjjjjjjjjjjjjjjjjjjjjjjjjjjjjjjj jjjjjjjjjjjjjjjjjjjjjjjjjjjjjjjjjjjjjjjjjjjjjjjjjjjjjjjjjjjjjjjjjjjjjjjjjjjjjjjjjjjjjjjjjjjjjjjjjjjj jjjjjjjjjjjjjjjjjjjjjjjjjjjjjjjjjjjjjjjjjjjjjjjjjjjjjjjjjjjjjjjjjjjjjjjjjjjjjjjjjjjjjjjjjjjjjjjjjjjj jjjjjjjjjjjjjjjjjjjjjjjjjjjjjjjjjjjjjjjjjjjjjjjjjjjjjjjjjjjjjjjjjjjjjjjjjjjjjjjjjjjjjjjjjjjjjjjjjjjj jjjjjjjjjjjjjjjjjjjjjjjjjjjjjjjjjjjjjjjjjjjjjjjjjjjjjjjjjjjjjjjjjjjjjjjjjjjjjjjjjjjjjjjjjjjjjjjjjjjj jjjjjjjjjjjjjjjjjjjjjjjjjjjjjjjjjjjjjjjjjjjjjjjjjjjjjjjjjjjjjjjjjjjjjjjjjjjjjjjjjjjjjjjjjjjjjjjjjjjj jjjjjjjjjjjjjjjjjjjjjjjjjjjjjjjjjjjjjjjjjjjjjjjjjjjjjjjjjjjjjjjjjjjjjjjjjjjjjjjjjjjjjjjjjjjjjjjjjjjj jjjjjjjjjjjjjjjjjjjjjjjjjjjjjjjjjjjjjjjjjjjjjjjjjjjjjjjjjjjjjjjjjjjjjjjjjjjjjjjjjjjjjjjjjjjjjjjjjjjj jjjjjjjjjjjjjjjjjjjjjjjjjjjjjjjjjjjjjjjjjjjjjjjjjjjjjjjjjjjjjjjjjjjjjjjjjjjjjjjjjjjjjjjjjjjjjjjjjjjj jjjjjjjjjjjjjjjjjjjjjjjjjjjjjjjjjjjjjjjjjjjjjjjjjjjjjjjjjjjjjjjjjjjjjjjjjjjjjjjjjjjjjjjjjjjjjjjjjjjj jjjjjjjjjjjjjjjjjjjjjjjjjjjjjjjjjjjjjjjjjjjjjjjjjjjjjjjjjjjjjjjjjjjjjjjjjjjjjjjjjjjjjjjjjjjjjjjjjjjj jjjjjjjjjjjjjjjjjjjjjjjjjjjjjjjjjjjjjjjjjjjjjjjjjjjjjjjjjjjjjjjjjjjjjjjjjjjjjjjjjjjjjjjjjjjjjjjjjjjj jjjjjjjjjjjjjjjjjjjjjjjjjjjjjjjjjjjjjjjjjjjjjjjjjjjjjjjjjjjjjjjjjjjjjjjjjjjjjjjjjjjjjjjjjjjjjjjjjjjj jjjjjjjjjjjjjjjjjjjjjjjjjjjjjjjjjjjjjjjjjjjjjjjjjjjjjjjjjjjjjjjjjjjjjjjjjjjjjjjjjjjjjjjjjjjjjjjjjjjj jjjjjjjjjjjjjjjjjjjjjjjjjjjjjjjjjjjjjjjjjjjjjjjjjjjjjjjjjjjjjjjjjjjjjjjjjjjjjjjjjjjjjjjjjjjjjjjjjjjj jjjjjjjjjjjjjjjjjjjjjjjjjjjjjjjjjjjjjjjjjjjjjjjjjjjjjjjjjjjjjjjjjjjjjjjjjjjjjjjjjjjjjjjjjjjjjjjjjjjj jjjjjjjjjjjjjjjjjjjjjjjjjjjjjjjjjjjjjjjjjjjjjjjjjjjjjjjjjjjjjjjjjjjjjjjjjjjjjjjjjjjjjjjjjjjjjjjjjjjj jjjjjjjjjjjjjjjjjjjjjjjjjjjjjjjjjjjjjjjjjjjjjjjjjjjjjjjjjjjjjjjjjjjjjjjjjjjjjjjjjjjjjjjjjjjjjjjjjjjj jjjjjjjjjjjjjjjjjjjjjjjjjjjjjjjjjjjjjjjjjjjjjjjjjjjjjjjjjjjjjjjjjjjjjjjjjjjjjjjjjjjjjjjjjjjjjjjjjjjj jjjjjjjjjjjjjjjjjjjjjjjjjjjjjjjjjjjjjjjjjjjjjjjjjjjjjjjjjjjjjjjjjjjjjjjjjjjjjjjjjjjjjjjjjjjjjjjjjjjj jjjjjjjjjjjjjjjjjjjjjjjjjjjjjjjjjjjjjjjjjjjjjjjjjjjjjjjjjjjjjjjjjjjjjjjjjjjjjjjjjjjjjjjjjjjjjjjjjjjj jjjjjjjjjjjjjjjjjjjjjjjjjjjjjjjjjjjjjjjjjjjjjjjjjjjjjjjjjjjjjjjjjjjjjjjjjjjjjjjjjjjjjjjjjjjjjjjjjjjj jjjjjjjjjjjjjjjjjjjjjjjjjjjjjjjjjjjjjjjjjjjjjjjjjjjjjjjjjjjjjjjjjjjjjjjjjjjjjjjjjjjjjjjjjjjjjjjjjjjj jjjjjjjjjjjjjjjjjjjjjjjjjjjjjjjjjjjjjjjjjjjjjjjjjjjjjjjjjjjjjjjjjjjjjjjjjjjjjjjjjjjjjjjjjjjjjjjjjjjj jjjjjjjjjjjjjjjjjjjjjjjjjjjjjjjjjjjjjjjjjjjjjjjjjjjjjjjjjjjjjjjjjjjjjjjjjjjjjjjjjjjjjjjjjjjjjjjjjjjj jjjjjjjjjjjjjjjjjjjjjjjjjjjjjjjjjjjjjjjjjjjjjjjjjjjjjjjjjjjjjjjjjjjjjjjjjjjjjjjjjjjjjjjjjjjjjjjjjjjj jjjjjjjjjjjjjjjjjjjjjjjjjjjjjjjjjjjjjjjjjjjjjjjjjjjjjjjjjjjjjjjjjjjjjjjjjjjjjjjjjjjjjjjjjjjjjjjjjjjj jjjjjjjjjjjjjjjjjjjjjjjjjjjjjjjjjjjjjjjjjjjjjjjjjjjjjjjjjjjjjjjjjjjjjjjjjjjjjjjjjjjjjjjjjjjjjjjjjjjj jjjjjjjjjjjjjjjjjjjjjjjjjjjjjjjjjjjjjjjjjjjjjjjjjjjjjjjjjjjjjjjjjjjjjjjjjjjjjjjjjjjjjjjjjjjjjjjjjjjj jjjjjjjjjjjjjjjjjjjjjjjjjjjjjjjjjjjjjjjjjjjjjjjjjjjjjjjjjjjjjjjjjjjjjjjjjjjjjjjjjjjjjjjjjjjjjjjjjjjj jjjjjjjjjjjjjjjjjjjjjjjjjjjjjjjjjjjjjjjjjjjjjjjjjjjjjjjjjjjjjjjjjjjjjjjjjjjjjjjjjjjjjjjjjjjjjjjjjjjj jjjjjjjjjjjjjjjjjjjjjjjjjjjjjjjjjjjjjjjjjjjjjjjjjjjjjjjjjjjjjjjjjjjjjjjjjjjjjjjjjjjjjjjjjjjjjjjjjjjj jjjjjjjjjjjjjjjjjjjjjjjjjjjjjjjjjjjjjjjjjjjjjjjjjjjjjjjjjjjjjjjjjjjjjjjjjjjjjjjjjjjjjjjjjjjjjjjjjjjj jjjjjjjjjjjjjjjjjjjjjjjjjjjjjjjjjjjjjjjjjjjjjjjjjjjjjjjjjjjjjjjjjjjjjjjjjjjjjjjjjjjjjjjjjjjjjjjjjjjj jjjjjjjjjjjjjjjjjjjjjjjjjjjjjjjjjjjjjjjjjjjjjjjjjjjjjjjjjjjjjjjjjjjjjjjjjjjjjjjjjjjjjjjjjjjjjjjjjjjj jjjjjjjjjjjjjjjjjjjjjjjjjjjjjjjjjjjjjjjjjjjjjjjjjjjjjjjjjjjjjjjjjjjjjjjjjjjjjjjjjjjjjjjjjjjjjjjjjjjj jjjjjjjjjjjjjjjjjjjjjjjjjjjjjjjjjjjjjjjjjjjjjjjjjjjjjjjjjjjjjjjjjjjjjjjjjjjjjjjjjjjjjjjjjjjjjjjjjjjj jjjjjjjjjjjjjjjjjjjjjjjjjjjjjjjjjjjjjjjjjjjjjjjjjjjjjjjjjjjjjjjjjjjjjjjjjjjjjjjjjjjjjjjjjjjjjjjjjjjj jjjjjjjjjjjjjjjjjjjjjjjjjjjjjjjjjjjjjjjjjjjjjjjjjjjjjjjjjjjjjjjjjjjjjjjjjjjjjjjjjjjjjjjjjjjjjjjjjjjj jjjjjjjjjjjjjjjjjjjjjjjjjjjjjjjjjjjjjjjjjjjjjjjjjjjjjjjjjjjjjjjjjjjjjjjjjjjjjjjjjjjjjjjjjjjjjjjjjjjj jjjjjjjjjjjjjjjjjjjjjjjjjjjjjjjjjjjjjjjjjjjjjjjjjjjjjjjjjjjjjjjjjjjjjjjjjjjjjjjjjjjjjjjjjjjjjjjjjjjj jjjjjjjjjjjjjjjjjjjjjjjjjjjjjjjjjjjjjjjjjjjjjjjjjjjjjjjjjjjjjjjjjjjjjjjjjjjjjjjjjjjjjjjjjjjjjjjjjjjj jjjjjjjjjjjjjjjjjjjjjjjjjjjjjjjjjjjjjjjjjjjjjjjjjjjjjjjjjjjjjjjjjjjjjjjjjjjjjjjjjjjjjjjjjjjjjjjjjjjj jjjjjjjjjjjjjjjjjjjjjjjjjjjjjjjjjjjjjjjjjjjjjjjjjjjjjjjjjjjjjjjjjjjjjjjjjjjjjjjjjjjjjjjjjjjjjjjjjjjj jjjjjjjjjjjjjjjjjjjjjjjjjjjjjjjjjjjjjjjjjjjjjjjjjjjjjjjjjjjjjjjjjjjjjjjjjjjjjjjjjjjjjjjjjjjjjjjjjjjj jjjjjjjjjjjjjjjjjjjjjjjjjjjjjjjjjjjjjjjjjjjjjjjjjjjjjjjjjjjjjjjjjjjjjjjjjjjjjjjjjjjjjjjjjjjjjjjjjjjj jjjjjjjjjjjjjjjjjjjjjjjjjjjjjjjjjjjjjjjjjjjjjjjjjjjjjjjjjjjjjjjjjjjjjjjjjjjjjjjjjjjjjjjjjjjjjjjjjjjj jjjjjjjjjjjjjjjjjjjjjjjjjjjjjjjjjjjjjjjjjjjjjjjjjjjjjjjjjjjjjjjjjjjjjjjjjjjjjjjjjjjjjjjjjjjjjjjjjjjj jjjjjjjjjjjjjjjjjjjjjjjjjjjjjjjjjjjjjjjjjjjjjjjjjjjjjjjjjjjjjjjjjjjjjjjjjjjjjjjjjjjjjjjjjjjjjjjjjjjj jjjjjjjjjjjjjjjjjjjjjjjjjjjjjjjjjjjjjjjjjjjjjjjjjjjjjjjjjjjjjjjjjjjjjjjjjjjjjjjjjjjjjjjjjjjjjjjjjjjj jjjjjjjjjjjjjjjjjjjjjjjjjjjjjjjjjjjjjjjjjjjjjjjjjjjjjjjjjjjjjjjjjjjjjjjjjjjjjjjjjjjjjjjjjjjjjjjjjjjj jjjjjjjjjjjjjjjjjjjjjjjjjjjjjjjjjjjjjjjjjjjjjjjjjjjjjjjjjjjjjjjjjjjjjjjjjjjjjjjjjjjjjjjjjjjjjjjjjjjj jjjjjjjjjjjjjjjjjjjjjjjjjjjjjjjjjjjjjjjjjjjjjjjjjjjjjjjjjjjjjjjjjjjjjjjjjjjjjjjjjjjjjjjjjjjjjjjjjjjj jjjjjjjjjjjjjjjjjjjjjjjjjjjjjjjjjjjjjjjjjjjjjjjjjjjjjjjjjjjjjjjjjjjjjjjjjjjjjjjjjjjjjjjjjjjjjjjjjjjj jjjjjjjjjjjjjjjjjjjjjjjjjjjjjjjjjjjjjjjjjjjjjjjjjjjjjjjjjjjjjjjjjjjjjjjjjjjjjjjjjjjjjjjjjjjjjjjjjjjj jjjjjjjjjjjjjjjjjjjjjjjjjjjjjjjjjjjjjjjjjjjjjjjjjjjjjjjjjjjjjjjjjjjjjjjjjjjjjjjjjjjjjjjjjjjjjjjjjjjj jjjjjjjjjjjjjjjjjjjjjjjjjjjjjjjjjjjjjjjjjjjjjjjjjjjjjjjjjjjjjjjjjjjjjjjjjjjjjjjjjjjjjjjjjjjjjjjjjjjj jjjjjjjjjjjjjjjjjjjjjjjjjjjjjjjjjjjjjjjjjjjjjjjjjjjjjjjjjjjjjjjjjjjjjjjjjjjjjjjjjjjjjjjjjjjjjjjjjjjj jjjjjjjjjjjjjjjjjjjjjjjjjjjjjjjjjjjjjjjjjjjjjjjjjjjjjjjjjjjjjjjjjjjjjjjjjjjjjjjjjjjjjjjjjjjjjjjjjjjj jjjjjjjjjjjjjjjjjjjjjjjjjjjjjjjjjjjjjjjjjjjjjjjjjjjjjjjjjjjjjjjjjjjjjjjjjjjjjjjjjjjjjjjjjjjjjjjjjjjj jjjjjjjjjjjjjjjjjjjjjjjjjjjjjjjjjjjjjjjjjjjjjjjjjjjjjjjjjjjjjjjjjjjjjjjjjjjjjjjjjjjjjjjjjjjjjjjjjjjj jjjjjjjjjjjjjjjjjjjjjjjjjjjjjjjjjjjjjjjjjjjjjjjjjjjjjjjjjjjjjjjjjjjjjjjjjjjjjjjjjjjjjjjjjjjjjjjjjjjj jjjjjjjjjjjjjjjjjjjjjjjjjjjjjjjjjjjjjjjjjjjjjjjjjjjjjjjjjjjjjjjjjjjjjjjjjjjjjjjjjjjjjjjjjjjjjjjjjjjj jjjjjjjjjjjjjjjjjjjjjjjjjjjjjjjjjjjjjjjjjjjjjjjjjjjjjjjjjjjjjjjjjjjjjjjjjjjjjjjjjjjjjjjjjjjjjjjjjjjj jjjjjjjjjjjjjjjjjjjjjjjjjjjjjjjjjjjjjjjjjjjjjjjjjjjjjjjjjjjjjjjjjjjjjjjjjjjjjjjjjjjjjjjjjjjjjjjjjjjj jjjjjjjjjjjjjjjjjjjjjjjjjjjjjjjjjjjjjjjjjjjjjjjjjjjjjjjjjjjjjjjjjjjjjjjjjjjjjjjjjjjjjjjjjjjjjjjjjjjj jjjjjjjjjjjjjjjjjjjjjjjjjjjjjjjjjjjjjjjjjjjjjjjjjjjjjjjjjjjjjjjjjjjjjjjjjjjjjjjjjjjjjjjjjjjjjjjjjjjj jjjjjjjjjjjjjjjjjjjjjjjjjjjjjjjjjjjjjjjjjjjjjjjjjjjjjjjjjjjjjjjjjjjjjjjjjjjjjjjjjjjjjjjjjjjjjjjjjjjj jjjjjjjjjjjjjjjjjjjjjjjjjjjjjjjjjjjjjjjjjjjjjjjjjjjjjjjjjjjjjjjjjjjjjjjjjjjjjjjjjjjjjjjjjjjjjjjjjjjj jjjjjjjjjjjjjjjjjjjjjjjjjjjjjjjjjjjjjjjjjjjjjjjjjjjjjjjjjjjjjjjjjjjjjjjjjjjjjjjjjjjjjjjjjjjjjjjjjjjj jjjjjjjjjjjjjjjjjjjjjjjjjjjjjjjjjjjjjjjjjjjjjjjjjjjjjjjjjjjjjjjjjjjjjjjjjjjjjjjjjjjjjjjjjjjjjjjjjjjj jjjjjjjjjjjjjjjjjjjjjjjjjjjjjjjjjjjjjjjjjjjjjjjjjjjjjjjjjjjjjjjjjjjjjjjjjjjjjjjjjjjjjjjjjjjjjjjjjjjj jjjjjjjjjjjjjjjjjjjjjjjjjjjjjjjjjjjjjjjjjjjjjjjjjjjjjjjjjjjjjjjjjjjjjjjjjjjjjjjjjjjjjjjjjjjjjjjjjjjj jjjjjjjjjjjjjjjjjjjjjjjjjjjjjjjjjjjjjjjjjjjjjjjjjjjjjjjjjjjjjjjjjjjjjjjjjjjjjjjjjjjjjjjjjjjjjjjjjjjj jjjjjjjjjjjjjjjjjjjjjjjjjjjjjjjjjjjjjjjjjjjjjjjjjjjjjjjjjjjjjjjjjjjjjjjjjjjjjjjjjjjjjjjjjjjjjjjjjjjj jjjjjjjjjjjjjjjjjjjjjjjjjjjjjjjjjjjjjjjjjjjjjjjjjjjjjjjjjjjjjjjjjjjjjjjjjjjjjjjjjjjjjjjjjjjjjjjjjjjj jjjjjjjjjjjjjjjjjjjjjjjjjjjjjjjjjjjjjjjjjjjjjjjjjjjjjjjjjjjjjjjjjjjjjjjjjjjjjjjjjjjjjjjjjjjjjjjjjjjj jjjjjjjjjjjjjjjjjjjjjjjjjjjjjjjjjjjjjjjjjjjjjjjjjjjjjjjjjjjjjjjjjjjjjjjjjjjjjjjjjjjjjjjjjjjjjjjjjjjj jjjjjjjjjjjjjjjjjjjjjjjjjjjjjjjjjjjjjjjjjjjjjjjjjjjjjjjjjjjjjjjjjjjjjjjjjjjjjjjjjjjjjjjjjjjjjjjjjjjj jjjjjjjjjjjjjjjjjjjjjjjjjjjjjjjjjjjjjjjjjjjjjjjjjjjjjjjjjjjjjjjjjjjjjjjjjjjjjjjjjjjjjjjjjjjjjjjjjjjj jjjjjjjjjjjjjjjjjjjjjjjjjjjjjjjjjjjjjjjjjjjjjjjjjjjjjjjjjjjjjjjjjjjjjjjjjjjjjjjjjjjjjjjjjjjjjjjjjjjj jjjjjjjjjjjjjjjjjjjjjjjjjjjjjjjjjjjjjjjjjjjjjjjjjjjjjjjjjjjjjjjjjjjjjjjjjjjjjjjjjjjjjjjjjjjjjjjjjjjj jjjjjjjjjjjjjjjjjjjjjjjjjjjjjjjjjjjjjjjjjjjjjjjjjjjjjjjjjjjjjjjjjjjjjjjjjjjjjjjjjjjjjjjjjjjjjjjjjjjj jjjjjjjjjjjjjjjjjjjjjjjjjjjjjjjjjjjjjjjjjjjjjjjjjjjjjjjjjjjjjjjjjjjjjjjjjjjjjjjjjjjjjjjjjjjjjjjjjjjj jjjjjjjjjjjjjjjjjjjjjjjjjjjjjjjjjjjjjjjjjjjjjjjjjjjjjjjjjjjjjjjjjjjjjjjjjjjjjjjjjjjjjjjjjjjjjjjjjjjj jjjjjjjjjjjjjjjjjjjjjjjjjjjjjjjjjjjjjjjjjjjjjjjjjjjjjjjjjjjjjjjjjjjjjjjjjjjjjjjjjjjjjjjjjjjjjjjjjjjj jjjjjjjjjjjjjjjjjjjjjjjjjjjjjjjjjjjjjjjjjjjjjjjjjjjjjjjjjjjjjjjjjjjjjjjjjjjjjjjjjjjjjjjjjjjjjjjjjjjj jjjjjjjjjjjjjjjjjjjjjjjjjjjjjjjjjjjjjjjjjjjjjjjjjjjjjjjjjjjjjjjjjjjjjjjjjjjjjjjjjjjjjjjjjjjjjjjjjjjj jjjjjjjjjjjjjjjjjjjjjjjjjjjjjjjjjjjjjjjjjjjjjjjjjjjjjjjjjjjjjjjjjjjjjjjjjjjjjjjjjjjjjjjjjjjjjjjjjjjj jjjjjjjjjjjjjjjjjjjjjjjjjjjjjjjjjjjjjjjjjjjjjjjjjjjjjjjjjjjjjjjjjjjjjjjjjjjjjjjjjjjjjjjjjjjjjjjjjjjj jjjjjjjjjjjjjjjjjjjjjjjjjjjjjjjjjjjjjjjjjjjjjjjjjjjjjjjjjjjjjjjjjjjjjjjjjjjjjjjjjjjjjjjjjjjjjjjjjjjj jjjjjjjjjjjjjjjjjjjjjjjjjjjjjjjjjjjjjjjjjjjjjjjjjjjjjjjjjjjjjjjjjjjjjjjjjjjjjjjjjjjjjjjjjjjjjjjjjjjj jjjjjjjjjjjjjjjjjjjjjjjjjjjjjjjjjjjjjjjjjjjjjjjjjjjjjjjjjjjjjjjjjjjjjjjjjjjjjjjjjjjjjjjjjjjjjjjjjjjj j Reason For Visit: DVT Physical Exam Vital Signs: Temp Pulse Resp BP Pulse Ox 97.7 F 117 H 19 112/79 98 02/10/19 20:03 02/10/19 20:03 02/10/19 20:03 02/10/19 20:03 02/10/19 20:03 Intake & Output 02/09/19 02/10/19 02/11/19 06:59 06:59 06:59 Intake Total 2850 477 Balance 2850 477 Weight 50.2 kg 52.4 kg General appearance: PRESENT: no acute distress, well-developed, well-nourished Head exam: PRESENT: atraumatic, normocephalic Eye exam: PRESENT: conjunctiva pink, EOMI, PERRLA. ABSENT: scleral icterus Ear exam: PRESENT: normal external ear exam Mouth exam: PRESENT: moist, tongue midline Neck exam: ABSENT: carotid bruit, JVD, lymphadenopathy, thyromegaly Respiratory exam: PRESENT: clear to auscultation andreina, symmetrical, unlabored. ABSENT: rales, rhonchi, wheezes Cardiovascular exam: PRESENT: RRR. ABSENT: diastolic murmur, rubs, systolic murmur Pulses: PRESENT: normal dorsalis pedis pul Vascular exam: PRESENT: normal capillary refill GI/Abdominal exam: PRESENT: normal bowel sounds, soft. ABSENT: distended, guarding, mass, organolmegaly, rebound, tenderness Rectal exam: PRESENT: deferred Extremities exam: PRESENT: full ROM. ABSENT: calf tenderness, clubbing, pedal edema Neurological exam: PRESENT: alert, awake, oriented to person, oriented to place, oriented to time, oriented to situation, CN II-XII grossly intact. ABSENT: motor sensory deficit Psychiatric exam: PRESENT: appropriate affect, normal mood. ABSENT: homicidal ideation, suicidal ideation Skin exam: PRESENT: dry, intact, warm. ABSENT: cyanosis, rash Results Laboratory Results: 02/10/19 05:28 02/10/19 05:28 02/10/19 02/10/19 02/10/19 05:28 05:28 05:45 WBC 12.8 H RBC 3.98 Hgb 11.5 L Hct 34.9 L MCV 88 MCH 28.8 MCHC 32.9 RDW 14.5 H Plt Count 353 Seg Neutrophils % 75.8 Lymphocytes % 14.2 Monocytes % 5.3 Eosinophils % 3.6 Basophils % 1.1 Absolute Neutrophils 9.7 H Absolute Lymphocytes 1.8 Absolute Monocytes 0.7 Absolute Eosinophils 0.5 Absolute Basophils 0.1 Sodium 141.2 Potassium 3.9 Chloride 106 Carbon Dioxide 22 Anion Gap 13 BUN 5 L Creatinine 0.57 Est GFR ( Amer) > 60 Est GFR (Non-Af Amer) > 60 Glucose 102 Calcium 9.6 Phosphorus 3.9 Magnesium 2.3 Total Bilirubin 0.5 AST 56 H ALT 38 Alkaline Phosphatase 373 H Total Protein 6.7 Albumin 3.5 Stool Occult Blood NEGATIVE Impressions: Chest X-Ray 02/09/19 00:00 IMPRESSION: There is loculated appearing pleural fluid and/or pleural soft tissue about the left upper lobe with a moderate left pleural effusion. Recommend contrast-enhanced CT to further evaluate. Venous Doppler Study 02/09/19 00:00 IMPRESSION: Positive examination for deep venous thrombosis in the left lower extremity with noncompressible thrombus present from the proximally imaged common femoral vein through the peroneal and posterior tibial veins in the left calf. Thrombus is age indeterminate. Status vessels are patent. Findings communicated to Dr. Lloyd, ER, 0840 hours, 02/09/[address] 02/09/19 03:01 IMPRESSION: No acute intracranial abnormalities. Negative for metastatic disease however MRI without and with contrast is far more sensitive Lung Scan[facility] 02/09/19 03:01 IMPRESSION: 1. Normal ventilation/perfusion lung scan. The scan is low probability for pulmonary embolism. 2. When a recent chest x-ray becomes available for comparison, an addendum will be issued. Status: Imported from [facility] Assessment and Plan - Diagnosis (1) Left leg DVT Qualifiers: Affected thrombotic vein of extremity: femoral Chronicity: acute Qualified Code(s): I82.412 - Acute embolism and thrombosis of left femoral vein Is this a current diagnosis for this admission?: Yes Plan: Seen on US Noncompressible thrombus present from the approximately common femoral vein through the peroneal and posterior tibial veins in the left calf Continue heparin GTT per protocol Bedrest Tylenol for pain (2) Pleural effusion, left Is this a current diagnosis for this admission?: Yes Plan: Loculated pleural effusion seen on CXR Likely malignant in nature given the patient's PMH Will require VATS procedure at [facility] If patient remains at H overnight, will discuss treatment options with [facility] physician in morning (3) Shortness of breath Is this a current diagnosis for this admission?: Yes Plan: Secondary to loculated pleural effusion Maintains SPO2 > 92% on room air See plan above (4) Breast CA Qualifiers: Patient sex: female Is this a current diagnosis for this admission?: Yes Plan: PMH metastatic breast cancer Currently taking letrozole Managed by oncology at [facility] - Time Time Spent with patient: 15-24 minutes Medications reviewed and adjusted accordingly: Yes Anticipated discharge: [facility] Certification Based on my medical assessment, after consideration of the patient's comorbidities, presenting symptoms, or acuity I expect that the services needed warrant INPATIENT care.: Yes I certify that my determination is in accordance with my understanding of Medicare's requirements for reasonable and necessary INPATIENT services [42 CFR 412.3e].: Yes Medical Necessity: Risk of Complication if Not Cared For in Hospital
[2019-02-11 08:40] LABS: HEMATOCRIT 34.7 % (36.0-47.0); HEMOGLOBIN 11.5 g/dL (12.0-15.5); MEAN CORPUSCULAR HEMOGLOBIN 28.8 pg (27.0-33.4); MEAN CORPUSCULAR HGB CONC 33.1 g/dL (32.0-36.0); MEAN CORPUSCULAR VOLUME 87 fl (80-97); PLATELET COUNT 460 10^3/uL (150-450); RED BLOOD COUNT 3.99 10^6/uL (3.72-5.28); RED CELL DISTRIBUTION WIDTH 14.9 % (11.5-14.0)
[2019-02-11] MEDS: FAMOTIDINE 20 MG TABLET PO SCH ×2 (09:33→22:17)
[2019-02-11] MEDS: HEPARIN SODIUM,PORCINE/D5W 25,000 UNIT/250 ML RTUINJ IV PRN (12:23)
--- NOTE | 2019-02-11 16:40 | PDOC PROGRESS REPORT ---
Subjective Progress Note for:: 02/11/19 Subjective:: SERAFIN MENDIOLA is a 44 year old female with a PMH of metastatic breast cancer presented to the emergency department with LLE erythema and edema. US reveals extensive DVT burden from left calf to pelvis. The patient was started on a heparin gtt while in the emergency department. CXR performed in the emergency department demonstrates left-sided loculated pleural effusion. Awaiting transfer to [facility] for possible VATS. No change to treatment plan. According to transfer center, the patient will not receive a bed assignment today, hopefully tomorrow. Spoke with patient's oncologist today, he reiterated that he would like the patient to come to [facility] for a VATS procedure. There is no indication for [facility] to perform a thoracentesis or place a chest tube at this time. Reason For Visit: DVT Physical Exam Vital Signs: Temp Pulse Resp BP Pulse Ox 98.0 F 99 18 101/72 100 02/11/19 15:43 02/11/19 15:43 02/11/19 15:43 02/11/19 15:43 02/11/19 15:43 Intake & Output 02/10/19 02/11/19 02/12/19 06:59 06:59 06:59 Intake Total 2850 477 361 Balance 2850 477 361 Weight 52.4 kg 51.9 kg General appearance: PRESENT: no acute distress, well-developed, well-nourished Head exam: PRESENT: atraumatic, normocephalic Eye exam: PRESENT: conjunctiva pink, EOMI, PERRLA. ABSENT: scleral icterus Ear exam: PRESENT: normal external ear exam Mouth exam: PRESENT: moist, tongue midline Neck exam: ABSENT: carotid bruit, JVD, lymphadenopathy, thyromegaly Respiratory exam: PRESENT: clear to auscultation andreina. ABSENT: rales, rhonchi, wheezes Cardiovascular exam: PRESENT: RRR, tachycardia - when ambulatory. ABSENT: diastolic murmur, rubs, systolic murmur Pulses: PRESENT: normal radial pulses, normal dorsalis pedis pul Vascular exam: PRESENT: normal capillary refill GI/Abdominal exam: PRESENT: normal bowel sounds, soft. ABSENT: distended, guarding, mass, organolmegaly, rebound, tenderness Rectal exam: PRESENT: deferred Extremities exam: PRESENT: full ROM, pedal edema - trace, +1 edema. ABSENT: calf tenderness, clubbing Musculoskeletal exam: PRESENT: full ROM, other - ERYTHEMA AND TRACE EDEMA TO LLE. ABSENT: normal inspection Neurological exam: PRESENT: alert, awake, oriented to person, oriented to place, oriented to time, oriented to situation Psychiatric exam: PRESENT: appropriate affect, normal mood Skin exam: PRESENT: dry, erythema - LLE, intact, warm. ABSENT: cyanosis, rash Results Laboratory Results: 02/11/19 08:08 02/10/19 05:28 02/11/19 08:08 WBC 9.0 RBC 3.99 Hgb 11.5 L Hct 34.7 L MCV 87 MCH 28.8 MCHC 33.1 RDW 14.9 H Plt Count 460 H Impressions: Chest X-Ray 02/09/19 00:00 IMPRESSION: There is loculated appearing pleural fluid and/or pleural soft tissue about the left upper lobe with a moderate left pleural effusion. Recommend contrast-enhanced CT to further evaluate. Venous Doppler Study 02/09/19 00:00 IMPRESSION: Positive examination for deep venous thrombosis in the left lower extremity with noncompressible thrombus present from the proximally imaged common femoral vein through the peroneal and posterior tibial veins in the left calf. Thrombus is age indeterminate. Status vessels are patent. Findings communicated to Dr. Lloyd, ER, 0840 hours, 02/09/[address] 02/09/19 03:01 IMPRESSION: No acute intracranial abnormalities. Negative for metastatic disease however MRI without and with contrast is far more sensitive Lung Scan-VQ NM 02/09/19 03:01 IMPRESSION: 1. Normal ventilation/perfusion lung scan. The scan is low probability for pulmonary embolism. 2. When a recent chest x-ray becomes available for comparison, an addendum will be issued. Status: Imported from PACS Assessment and Plan - Diagnosis (1) Left leg DVT Qualifiers: Affected thrombotic vein of extremity: femoral Chronicity: acute Qualified Code(s): I82.412 - Acute embolism and thrombosis of left femoral vein Is this a current diagnosis for this admission?: Yes Plan: Seen on US Noncompressible thrombus present from the approximately common femoral vein through the peroneal and posterior tibial veins in the left calf Continue heparin GTT per protocol Bedrest Tylenol for pain (2) Pleural effusion, left Is this a current diagnosis for this admission?: Yes Plan: Loculated pleural effusion seen on CXR Likely malignant in nature given the patient's PMH Will require VATS procedure at [facility] (3) Shortness of breath Is this a current diagnosis for this admission?: Yes Plan: Improved. Patient denies SOB, only endorses weakness "like [she has] the flu" Secondary to loculated pleural effusion Maintains SPO2 > 92% on room air See plan above (4) Breast CA Qualifiers: Patient sex: female Is this a current diagnosis for this admission?: Yes Plan: PMH metastatic breast cancer Currently taking letrozole Managed by oncology at [facility] - Time Time Spent with patient: 15-24 minutes Medications reviewed and adjusted accordingly: Yes Anticipated discharge: [facility] Within: within 24 hours - Inpatient Certification Based on my medical assessment, after consideration of the patient's comorbidities, presenting symptoms, or acuity I expect that the services needed warrant INPATIENT care.: Yes I certify that my determination is in accordance with my understanding of Medicare's requirements for reasonable and necessary INPATIENT services [42 CFR 412.3e].: Yes Medical Necessity: Need Close Monitoring Due to Risk of Patient Decompensation, Risk of Complication if Not Cared For in Hospital
[2019-02-12] MEDS: FAMOTIDINE 20 MG TABLET PO SCH ×2 (09:29→21:24)
[2019-02-12] MEDS: ACETAMINOPHEN 325 MG TABLET PO PRN ×2 (09:29→20:36)
[2019-02-12] MEDS: HEPARIN SODIUM,PORCINE/D5W 25,000 UNIT/250 ML RTUINJ IV PRN (09:34)
--- NOTE | 2019-02-12 12:41 | PDOC CONSULTATION ---
Consultation Consult Date: 02/12/19 Attending physician:: EUGENIA ZAPATA Consult reason:: Stage IV breast cancer, here with DVT as well as loculated pleural effusion History of Present Illness Admission Date/PCP: 02/09/19 11:20 Patient complains of: Left lower extremity swelling, cough and shortness of breath History of Present Illness: SERAFIN MENDIOLA is a 44 year old female with known long-standing history of stage IV ER positive breast cancer. She was originally diagnosed in 2009, at that time she had a right breast cancer, initially staged at 3, received 4 cycles of Adriamycin/Cytoxan then had surgery with bilateral mastectomy with reconstruction. This indicated stage IIIb breast cancer, ER positive. She then received 4 cycles of adjuvant Taxotere. She was then placed on tamoxifen. She was then followed until 2011, and she was found to have sternal metastasis that was fully resected, at that time there is no distant disease, and she had radiation to the sternum thereafter. All this treatment happened in [place] through Dr. Myers. Thereafter, in 07/2014 she was found to have bilateral lung nodules. At this time she was seen by Dr. Watson in [place]. And she was recommended to initiate chemotherapy. However she wanted a second opinion and was then seen at [facility] by Dr. Bharathi Chris. She had a biopsy which indicated ER positive breast cancer of the lung. Then she was initiated on Zoladex, then transition to Faslodex in 2014. At that time she was also placed on clinical trial with Faslodex but had a severe reaction to the clinical trial medication. After that reaction she also had reaction to IV contrast from CT an d she had a full anaphylactic reaction. Thereafter she is never had contrasted imaging. She was then kept on Faslodex until 2017. At that time she was found to have progression and she was placed on letrozole. Although while she has been on Zoladex since 2013 she tells me. The last imaging she notes was back in 2017 and at that time she was found to have bilateral lung nodules the largest was in the left lung, she had a spot in the liver, and she also had sacral metastasis and L2 metastasis. And she was continued through most of last year on Zoladex and Femara. However for the last 5 months she has not been able to travel back up to [facility] so she has had no treatment for that time. The last CA-27-29 was 2239, noted at [place] in October. She has not had any staging or treatment since then. She presents with a 1 to 2-week history of increasing cough congestion shortness of breath. Then she had swelling of the left lower extremity. Upon presentation she was found to have extensive left lower extremity DVT and also a loculated left pleural effusion. She had a VQ scan done since she that contrast allergy, this was negative for PE. She was accepted for transfer to [facility] for consideration of VATS for the pleural effusion. So she has been kept on a heparin drip. Unfortunately there is no beds opening up at [facility]. Of note, patient also discussed with her hospitalist team that she no longer wants to go up to [place] and she wants to be managed locally. Therefore we were asked to become involved. Of note she is having significant low back pain. She also has significant peripheral neuropathy. The other major issues that she does have trouble swallowing large pills. So that has complicated some oral treatments. Past Medical History Malignancy Medical History: Reports: Breast Cancer, Lung Cancer Past Surgical History Past Surgical History: Reports: Other - Bilateral mastectomy with reconstruction, sternal excision Social History Information Source: Patient Lives with: Family Smoking Status: Never Smoker Frequency of Alcohol Use: None Hx Recreational Drug Use: No Drugs: None Hx Prescription Drug Abuse: No - Advance Directive Resuscitation Status: Full Code Family History Family History: Malignancy - MOTHER - BREAST CA Parental Family History Reviewed: Yes Children Family History Reviewed: Yes Sibling(s) Family History Reviewed.: Yes Medication/Allergy Home Medications: No Home Medications 02/09/19 Allergies/Adverse Reactions: Antihistamines - Alkylamine Adverse Reaction (Verified 04/17/18 14:57) Tachycardia contrast dye Allergy (Uncoded 02/09/19 02:52) Anaphylaxis Review of Systems Constitutional: PRESENT: fatigue, weakness Cardiovascular: PRESENT: dyspnea on exertion Respiratory: PRESENT: cough Gastrointestinal: ABSENT: abdominal pain, constipation, diarrhea, hematemesis, hematochezia, nausea, vomiting Musculoskeletal: PRESENT: back pain Neurological: PRESENT: other - Peripheral neuropathy Psychiatric: PRESENT: anxiety Physical Exam Vital Signs: Temp Pulse Resp BP Pulse Ox 98.0 F 103 H 18 113/73 99 02/12/19 08:01 02/12/19 08:01 02/12/19 08:01 02/12/19 08:01 02/12/19 08:01 Intake & Output 02/11/19 02/12/19 02/13/19 06:59 06:59 06:59 Intake Total 477 1519 239 Balance 477 1519 239 Weight 51.9 kg 52.5 kg General appearance: PRESENT: no acute distress, well-developed, well-nourished Head exam: PRESENT: atraumatic, normocephalic Eye exam: PRESENT: conjunctiva pink, EOMI, PERRLA. ABSENT: scleral icterus Ear exam: PRESENT: normal external ear exam Mouth exam: PRESENT: moist, tongue midline Neck exam: ABSENT: carotid bruit, JVD, lymphadenopathy, thyromegaly Respiratory exam: PRESENT: clear to auscultation andreina. ABSENT: rales, rhonchi, wheezes Cardiovascular exam: PRESENT: RRR. ABSENT: diastolic murmur, rubs, systolic murmur Pulses: PRESENT: normal dorsalis pedis pul Vascular exam: PRESENT: normal capillary refill GI/Abdominal exam: PRESENT: normal bowel sounds, soft. ABSENT: distended, guarding, mass, organolmegaly, rebound, tenderness Rectal exam: PRESENT: deferred Extremities exam: PRESENT: full ROM. ABSENT: calf tenderness, clubbing, pedal edema Neurological exam: PRESENT: alert, awake, oriented to person, oriented to place, oriented to time, oriented to situation, CN II-XII grossly intact. ABSENT: motor sensory deficit Psychiatric exam: PRESENT: appropriate affect, normal mood. ABSENT: homicidal ideation, suicidal ideation Skin exam: PRESENT: dry, intact, warm. ABSENT: cyanosis, rash Results Laboratory Results: 02/11/19 08:08 02/10/19 05:28 Impressions: Chest X-Ray 02/09/19 00:00 IMPRESSION: There is loculated appearing pleural fluid and/or pleural soft tissue about the left upper lobe with a moderate left pleural effusion. Recommend contrast-enhanced CT to further evaluate. Venous Doppler Study 02/09/19 00:00 IMPRESSION: Positive examination for deep venous thrombosis in the left lower extremity with noncompressible thrombus present from the proximally imaged common femoral vein through the peroneal and posterior tibial veins in the left calf. Thrombus is age indeterminate. Status vessels are patent. Findings communicated to Dr. Lloyd, ER, 0840 hours, 02/09/[address] 02/09/19 03:01 IMPRESSION: No acute intracranial abnormalities. Negative for metastatic disease however MRI without and with contrast is far more sensitive Lung Scan-VQ NM 02/09/19 03:01 IMPRESSION: 1. Normal ventilation/perfusion lung scan. The scan is low probability for pulmonary embolism. 2. When a recent chest x-ray becomes available for comparison, an addendum will be issued. Status: Image reviewed by me Assessment & Plan - Diagnosis (1) Left leg DVT Qualifiers: Affected thrombotic vein of extremity: femoral Chronicity: acute Qualified Code(s): I82.412 - Acute embolism and thrombosis of left femoral vein Is this a current diagnosis for this admission?: Yes Plan: Reviewed imaging, patient is clinically stable so I do not think she needs emergent VATS. To that extent I will discontinue her heparin drip and start her on Lovenox. I think this would be a better medication for her to be on in the close future while we figure out what she could actually swallow because she does have the pill aversion. I have placed her on Lovenox 1 mg/kg every 12 hours. This will start 2 hours post discontinuation of heparin drip. (2) Pleural effusion, left Is this a current diagnosis for this admission?: Yes Plan: We will need to reevaluate this, I have ordered CT of the chest abdomen pelvis for restaging of the breast cancer. This will give us a better picture of what we should do with the fusion. Most likely we will tackle this as an outpatient. (3) Breast CA Qualifiers: Breast location: upper outer quadrant of breast Estrogen receptor status: positive Patient sex: female Laterality: right Qualified Code(s): C50.411 - Malignant neoplasm of upper-outer quadrant of right female breast; Z17.0 - Estrogen receptor positive status [ER+] Is this a current diagnosis for this admission?: Yes Plan: Stage IV right breast cancer, ER positive. It is been about 5 years since she has had re-biopsy. We will need to get full records from [facility]. Will be able to do this next week. Restaging imaging ordered. I will be taking over her care. - Time Time Spent: Greater than 70 Minutes - Inpatient Certification Based on my medical assessment, after consideration of the patient's comorbidities, presenting symptoms, or acuity I expect that the services needed warrant INPATIENT care.: Yes I certify that my determination is in accordance with my understanding of Medicare's requirements for reasonable and necessary INPATIENT services [42 CFR 412.3e].: Yes Medical Necessity: Risk of Complication if Not Cared For in Hospital
--- NOTE | 2019-02-12 14:21 | RADIOLOGY REPORT (SQ) ---
EXAM DESCRIPTION: CT ABD/PELVIS NO ORAL OR IV COMPLETED DATE/TIME: 02/12/2019 12:52 pm REASON FOR STUDY: indication stage IV breast cancer COMPARISON: 04/17/2018 TECHNIQUE: CT scan of the abdomen and pelvis performed without intravenous or oral contrast. Images reviewed with lung, soft tissue, and bone windows. Reconstructed coronal and sagittal MPR images revi ewed. All images stored on PACS. All CT scanners at this facility use dose modulation, iterative reconstruction, and/or weight based d osing when appropriate to reduce radiation dose to as low as reasonably achievable (ALARA). [facility]: Dose Right [facility]: CareDose [facility]: Dose Right [facility]: Teradose 4D [facility]: [employer] RADIATION DOSE: CT Rad equipment meets quality standard of care and radiation dose reduction techniq ues were employed. CTDIvol: 4.8 mGy. DLP: 252 mGy-cm.mGy. LIMITATIONS: None. FINDINGS: LOWER CHEST: Extensive soft tissue nodularity along the left basilar pleural and mediastin al surface. Moderate left pleural effusion. Multiple nodules along the major fissures bilaterally. Similar calcified nodularity on the right diaphragm. NON-CONTRASTED LIVER, SPLEEN, ADRENALS: Evaluation limited by lack of IV contrast. Numerous hepatic hypodense masses. . PANCREAS: No masses. No peripancreatic inflammatory changes. GALLBLADDER: No calcified stones. No inflammatory changes to suggest cholecystitis. RIGHT KIDNEY AND URETER: No cysts identified. No solid masses. Numerous calcified stones. No hydrone phrosis or hydroureter. LEFT KIDNEY AND URETER: No cysts identified. No solid masses. Numerous calcified stones. No hydronep hrosis or hydroureter. AORTA AND RETROPERITONEUM: No aneurysm. No bulky adenopathy. BOWEL AND PERITONEAL CAVITY: No obstruction. Trace free fluid. APPENDIX: Not visualized. PELVIS, BLADDER, AND ABDOMINAL WALL:There are multiple osseous -pelvic soft tissue. Trace free fluid. Unremarkable bladder. BONES: Multiple lytic -blastic lesions with destructive changes present in the lumbar spine vertebral bodies and pelvic bones with greatest involvement in the right sacrum and iliac bone. OTHER: No other significant finding. IMPRESSION: Findings consistent with widespread metastatic disease with greatest involvement in the left hemithorax, liver, and throughout the bones with greatest destructive changes in the right pelvi s. TECHNICAL DOCUMENTATION: JOB ID: [id number] [place]-[id number] Quality ID # [id number]: Final reports with documentation of one or more dose reduction techniques (e.g., Au tomated exposure control, adjustment of the mA and/or kV according to patient size, use of iterative reconstruction technique) 2010 [employer]- All Rights Reserved Reading location - IP/workstation name: [email or web address]
[2019-02-12] MEDS: ENOXAPARIN SODIUM INJ 60 MG/0.6 ML DISP.SYRIN SUBCUT SCH ×2 (14:30→21:24)
--- NOTE | 2019-02-12 17:14 | PDOC PROGRESS REPORT ---
Subjective Progress Note for:: 02/12/19 Subjective:: SERAFIN MENDIOLA is a 44 year old female with a PMH of metastatic breast cancer presented to the emergency department with LLE erythema and edema. US reveals extensive DVT burden from left calf to pelvis. The patient was started on a heparin gtt while in the emergency department. CXR performed in the emergency department demonstrates left-sided loculated pleural effusion. The patient's oncologist at [facility] and recommend that she be transferred to their facility for possible VATS procedure. However, today the patient tells me that she has been having difficulty traveling to [facility] for her care and would like to establish with a local oncologist. Spoke with Dr. Ruby who has agreed to see the patient today in consultation. Patient was seen on morning rounds with her present. She was found resting in bed comfortably on room air. Her only complaint today is lower back pain which she attributes to the uncomfortable hospital bed. She is offered st ronger pain medication which is declined; only asks for a heating pad. Otherwise, she discusses her frustration with the difficulty of traveling to and from [place] for her oncology services. She does request to see Dr. Ruby in consultation, hopeful that he will be able to provide for as an outpatient. She denies fever, chills, chest pain, palpitations, dyspnea, orthopnea, cough, abdominal pain, nausea vomiting and diarrhea. She has no other questions or concerns at this time. Nursing reports the patient has low health literacy; will ensure that the cyber policy and strategy planner and patient navigator are consulted. Reason For Visit: DVT Physical Exam Vital Signs: Temp Pulse Resp BP Pulse Ox 97.3 F 108 H 16 99/66 L 99 02/12/19 16:05 02/12/19 16:05 02/12/19 16:05 02/12/19 16:05 02/12/19 16:05 Intake & Output 02/11/19 02/12/19 02/13/19 06:59 06:59 06:59 Intake Total 477 1519 830 Balance 477 1519 830 Weight 51.9 kg 52.5 kg General appearance: PRESENT: no acute distress, cooperative, thin, well- developed Head exam: PRESENT: atraumatic, normocephalic Eye exam: PRESENT: conjunctiva pink, EOMI, PERRLA. ABSENT: scleral icterus Ear exam: PRESENT: normal external ear exam Mouth exam: PRESENT: moist, tongue midline Neck exam: ABSENT: carotid bruit, JVD, lymphadenopathy, thyromegaly Respiratory exam: PRESENT: clear to auscultation andreina, symmetrical, unlabored. ABSENT: rales, rhonchi, wheezes Cardiovascular exam: PRESENT: RRR, tachycardia. ABSENT: diastolic murmur, rubs, systolic murmur Pulses: PRESENT: normal dorsalis pedis pul Vascular exam: PRESENT: normal capillary refill GI/Abdominal exam: PRESENT: normal bowel sounds, soft. ABSENT: distended, guarding, mass, organolmegaly, rebound, tenderness Rectal exam: PRESENT: deferred Extremities exam: PRESENT: full ROM, +1 edema - LLE. ABSENT: calf tenderness, clubbing, pedal edema Neurological exam: PRESENT: alert, awake, oriented to person, oriented to place, oriented to time, oriented to situation, CN II-XII grossly intact. ABSENT: motor sensory deficit Psychiatric exam: PRESENT: appropriate affect, normal mood. ABSENT: homicidal ideation, suicidal ideation Skin exam: PRESENT: dry, intact, warm. ABSENT: cyanosis, rash Results Laboratory Results: 02/11/19 08:08 02/10/19 05:28 Impressions: Chest X-Ray 02/09/19 00:00 IMPRESSION: There is loculated appearing pleural fluid and/or pleural soft tissue about the left upper lobe with a moderate left pleural effusion. Recommend contrast-enhanced CT to further evaluate. Venous Doppler Study 02/09/19 00:00 IMPRESSION: Positive examination for deep venous thrombosis in the left lower extremity with noncompressible thrombus present from the proximally imaged common femoral vein through the peroneal and posterior tibial veins in the left calf. Thrombus is age indeterminate. Status vessels are patent. Findings communicated to Dr. Lloyd, ER, 0840 hours, 02/09/[address] 02/09/19 03:01 IMPRESSION: No acute intracranial abnormalities. Negative for metastatic disease however MRI without and with contrast is far more sensitive Lung Scan-VQ NM 02/09/19 03:01 IMPRESSION: 1. Normal ventilation/perfusion lung scan. The scan is low probability for pulmonary embolism. 2. When a recent chest x-ray becomes available for comparison, an addendum will be issued. Abdomen/Pelvis CT 02/12/19 00:00 IMPRESSION: Findings consistent with widespread metastatic disease with greatest involvement in the left hemithorax, liver, and throughout the bones with greatest destructive changes in the right pelvis. Assessment and Plan - Diagnosis (1) Left leg DVT Qualifiers: Affected thrombotic vein of extremity: femoral Chronicity: acute Qual ified Code(s): I82.412 - Acute embolism and thrombosis of left femoral vein Is this a current diagnosis for this admission?: Yes Plan: Patient complains of left lower extremity tenderness, edema, and erythema Ultrasound reveals noncompressible thrombus present from the approximately common femoral vein through the peroneal and posterior tibial veins in the left calf Patient was initially placed on heparin GTT; have transition to full dose Lovenox today. Discussed with [facility]/ONC; patient has pill aversion, likely would benefit from transition to p.o. Xarelto or Eliquis at discharge. Will defer to their expertise. Bedrest Tylenol for pain (2) Breast CA Qualifiers: Breast location: upper outer quadrant of breast Estrogen receptor status: positive Patient sex: female Laterality: right Qualified Code(s): C50.411 - Malignant neoplasm of upper-outer quadrant of right female breast; Z17.0 - Estrogen receptor positive status [ER+] Is this a current diagnosis for this admission?: Yes Plan: [facility] metastatic breast cancer Currently taking letrozole Managed by oncology at [facility]; patient reports that she has had extreme difficulty with travel to [place] for routine care. She asks to be seen by a local oncologist to discuss feasibility of transferring her care to their service. Spoke with Dr. Ruby today, he available for consultation and will see the patient today. CT chest, abdomen, pelvis pending for restaging. (3) Pleural effusion, left Is this a current diagnosis for this admission?: Yes Plan: Loculated pleural effusion seen on CXR Likely malignant in nature given the patient's [facility] Patient's oncologist at [facility] recommended transfer to their facility for evaluation for VATS procedure. However, patient is requesting to delay transfer to [facility] facility and obtain second opinion through a local oncologist. Patient does appear to be hemodynamically stable at this time, minimal dyspnea while at rest, maintaining oxygen saturations while on room air. Does not appear that she requires urgent/emergent thoracentesis or VATS procedure. Oncology is consulted; appreciate Dr. Ruby's evaluation and recommendation. (4) Shortness of breath Is this a current diagnosis for this admission?: Yes Plan: Improved. Patient denies SOB, only endorses weakness "like [she has] the flu" Secondary to loculated pleural effusion Maintains SPO2 > 92% on room air See plan above - Time Time Spent with patient: 25-34 minutes Medications reviewed and adjusted accordingly: Yes Anticipated discharge: Home Within: within 72 hours
[2019-02-13 07:14] LABS: HEMATOCRIT 33.8 % (36.0-47.0); MEAN CORPUSCULAR HEMOGLOBIN 28.1 pg (27.0-33.4); MEAN CORPUSCULAR HGB CONC 32.5 g/dL (32.0-36.0); MEAN CORPUSCULAR VOLUME 86 fl (80-97); PLATELET COUNT 417 10^3/uL (150-450); RED BLOOD COUNT 3.91 10^6/uL (3.72-5.28); RED CELL DISTRIBUTION WIDTH 14.7 % (11.5-14.0)
[2019-02-13 07:43] LABS: ANION GAP 11 (5-19); BLOOD UREA NITROGEN 6 mg/dL (7-20); CALCIUM 9.3 mg/dL (8.4-10.2); CARBON DIOXIDE 26 mmol/L (22-30); CHLORIDE 103 mmol/L (98-107); GLUCOSE 88 mg/dL (75-110); POTASSIUM 4.2 mmol/L (3.6-5.0); SODIUM 139.9 mmol/L (137-145)
[2019-02-13] MEDS: FAMOTIDINE 20 MG TABLET PO SCH ×2 (10:22→21:44)
[2019-02-13] MEDS: ENOXAPARIN SODIUM INJ 60 MG/0.6 ML DISP.SYRIN SUBCUT SCH (10:22)
[2019-02-13] MEDS ORDERED: TRAMADOL HCL 50 MG TABLET PO PRN (10:50)
--- NOTE | 2019-02-13 11:39 | PDOC PROGRESS REPORT ---
Subjective Progress Note for:: 02/13/19 Subjective:: Pt seems to be doing better but still w/ considerable pain in sacral area, pelvis, and some pain LLE Reason For Visit: DVT Physical Exam Vital Signs: Temp Pulse Resp BP Pulse Ox 98.1 F 109 H 18 111/71 99 02/13/19 07:47 02/13/19 07:47 02/13/19 07:47 02/13/19 07:47 02/13/19 07:47 Intake & Output 02/12/19 02/13/19 02/14/19 06:59 06:59 06:59 Intake Total 1519 1902 Balance 1519 1902 Weight 52.5 kg 52.8 kg General appearance: PRESENT: no acute distress, well-developed, well-nourished Head exam: PRESENT: atraumatic, normocephalic Eye exam: PRESENT: conjunctiva pink, EOMI, PERRLA. ABSENT: scleral icterus Ear exam: PRESENT: normal external ear exam Mouth exam: PRESENT: moist, tongue midline Neck exam: ABSENT: carotid bruit, JVD, lymphadenopathy, thyromegaly Respiratory exam: PRESENT: clear to auscultation andreina. ABSENT: rales, rhonchi, wheezes Cardiovascular exam: PRESENT: RRR. ABSENT: diastolic murmur, rubs, systolic murmur Pulses: PRESENT: normal dorsalis pedis pul Vascular exam: PRESENT: normal capillary refill GI/Abdominal exam: PRESENT: normal bowel sounds, soft. ABSENT: distended, guarding, mass, organolmegaly, rebound, tenderness Rectal exam: PRESENT: deferred Extremities exam: PRESENT: full ROM. ABSENT: calf tenderness, clubbing, pedal edema Neurological exam: PRESENT: alert, awake, oriented to person, oriented to place, oriented to time, oriented to situation, CN II-XII grossly intact. ABSENT: motor sensory deficit Psychiatric exam: PRESENT: appropriate affect, normal mood. ABSENT: homicidal ideation, suicidal ideation Skin exam: PRESENT: dry, intact, warm. ABSENT: cyanosis, rash Results Laboratory Results: 02/13/19 05:51 02/13/19 05:51 02/13/19 02/13/19 05:51 05:51 WBC 12.0 H RBC 3.91 Hgb 11.0 L Hct 33.8 L MCV 86 MCH 28.1 MCHC 32.5 RDW 14.7 H Plt Count 417 Sodium 139.9 Potassium 4.2 Chloride 103 Carbon Dioxide 26 Anion Gap 11 BUN 6 L Creatinine 0.50 L Est GFR ( Amer) > 60 Est GFR (Non-Af Amer) > 60 Glucose 88 Calcium 9.3 Impressions: Chest X-Ray 02/09/19 00:00 IMPRESSION: There is loculated appearing pleural fluid and/or pleural soft tissue about the left upper lobe with a moderate left pleural effusion. Recommend contrast-enhanced CT to further evaluate. Venous Doppler Study 02/09/19 00:00 IMPRESSION: Positive examination for deep venous thrombosis in the left lower extremity with noncompressible thrombus present from the proximally imaged common femoral vein through the peroneal and posterior tibial veins in the left calf. Thrombus is age indeterminate. Status vessels are patent. Findings communicated to PRESTON Chapa, 0840 hours, 02/09/[address] 02/09/19 03:01 IMPRESSION: No acute intracranial abnormalities. Negative for metastatic disease however MRI without and with contrast is far more sensitive Lung Scan-VQ NM 02/09/19 03:01 IMPRESSION: 1. Normal ventilation/perfusion lung scan. The scan is low probability for pulmonary embolism. 2. When a recent chest x-ray becomes available for comparison, an addendum will be issued. Abdomen/Pelvis CT 02/12/19 00:00 IMPRESSION: Findings consistent with widespread metastatic disease with greatest involvement in the left hemithorax, liver, and throughout the bones with greatest destructive changes in the right pelvis. Assessment & Plan - Diagnosis (1) Left leg DVT Qualifiers: Affected thrombotic vein of extremity: femoral Chronicity: acute Qualified Code(s): I82.412 - Acute embolism and thrombosis of left femoral vein Is this a current diagnosis for this admission?: Yes Plan: Discussed with patient and hospitalist team, switch over to Xarelto 15 mg twice daily for the evening. She will be on Xarelto for 21 days at 50 mg twice daily then switch over to 20 mg daily thereafter. (2) Pleural effusion, left Is this a current diagnosis for this admission?: Yes Plan: CT chest was not done, ordered today. (3) Breast CA Qualifiers: Breast location: upper outer quadrant of breast Estrogen receptor status: positive Patient sex: female Laterality: right Qualified Code(s): C50.411 - Malignant neoplasm of upper-outer quadrant of right female breast; Z17.0 - Estrogen receptor positive status [ER+] Is this a current diagnosis for this admission?: Yes Plan: Today I had a long discussion with the patient and family, spent greater than 35 minutes in discussion, discussed all of the findings on CT, probable progression although the last CT done at [facility] was a year ago, but she now does have disease in multiple areas in the liver, and bone, other than lung. (4) Pain, neoplasm-related Is this a current diagnosis for this admission?: Yes Plan: She does have considerable back pain that is related to the bone metastasis. I had a long discussion about pain medication with her, but she is adamantly refusing oxycodone at this point. We will discuss his future as an outpatient. Continue with Tylenol only. - Time Time Spent with patient: 35 or more minutes Disposition: We will try the Xarelto for her, as long as she is able to swallow the pill and take it appropriately, by tomorrow we should be able to discharge her home and we can follow her up closely as an outpatient.
--- NOTE | 2019-02-13 15:57 | PDOC PROGRESS REPORT ---
Subjective Progress Note for:: 02/13/19 Subjective:: SERAFIN MENDIOLA is a 44 year old female with a PMH of metastatic breast cancer presented to the emergency department with LLE erythema and edema. US reveals extensive DVT burden from left calf to pelvis. Patient was seen on morning rounds with her present. She was found resting in bed comfortably on room air. Her only complaint today remains lower back pain; she reports heating pad has been helpful. She is offered stronger pain medication which is declined. She reports that she is pleased that Dr. Ruby has agreed to accept her as a patient so that she will not have to travel to [place] anymore. She denies fever, chills, chest pain, palpitations, dyspnea, orthopnea, cough, abdominal pain, nausea vomiting and diarrhea. She has no other questions or concerns at this time. Nursing reports the patient has low health literacy; will ensure that the kit planner and patient navigator are consulted. Reason For Visit: DVT Physical Exam Vital Signs: Temp Pulse Resp BP Pulse Ox 97.8 F 114 H 16 106/60 98 02/13/19 12:23 02/13/19 12:23 02/13/19 12:23 02/13/19 12:23 02/13/19 12:23 Intake & Output 02/12/19 02/13/19 02/14/19 06:59 06:59 06:59 Intake Total 1519 1902 404 Balance 1519 1902 404 Weight 52.5 kg 52.8 kg General appearance: PRESENT: no acute distress, cooperative, thin, well- developed Head exam: PRESENT: atraumatic, normocephalic Eye exam: PRESENT: conjunctiva pink, EOMI, PERRLA. ABSENT: scleral icterus Ear exam: PRESENT: normal external ear exam Mouth exam: PRESENT: moist, tongue midline Neck exam: ABSENT: carotid bruit, JVD, lymphadenopathy, thyromegaly Respiratory exam: PRESENT: clear to auscultation andreina, decreased breath sounds - Bibasilar; L>R, symmetrical, unlabored. ABSENT: rales, rhonchi, wheezes Cardiovascular exam: PRESENT: RRR, +S1, +S2, tachycardia. ABSENT: diastolic murmur, rubs, systolic murmur Pulses: PRESENT: normal dorsalis pedis pul Vascular exam: PRESENT: normal capillary refill GI/Abdominal exam: PRESENT: normal bowel sounds, soft. ABSENT: distended, guarding, mass, organolmegaly, rebound, tenderness Rectal exam: PRESENT: deferred Extremities exam: PRESENT: full ROM, +1 edema - LLE. ABSENT: calf tenderness, clubbing, pedal edema Musculoskeletal exam: PRESENT: ambulatory Neurological exam: PRESENT: alert, awake, oriented to person, oriented to place, oriented to time, oriented to situation, CN II-XII grossly intact. ABSENT: motor sensory deficit Psychiatric exam: PRESENT: appropriate affect, normal mood. ABSENT: homicidal ideation, suicidal ideation Skin exam: PRESENT: dry, intact, warm. ABSENT: cyanosis, rash Results Laboratory Results: 02/13/19 05:51 02/13/19 05:51 02/13/19 02/13/19 05:51 05:51 WBC 12.0 H RBC 3.91 Hgb 11.0 L Hct 33.8 L MCV 86 MCH 28.1 MCHC 32.5 RDW 14.7 H Plt Count 417 Sodium 139.9 Potassium 4.2 Chloride 103 Carbon Dioxide 26 Anion Gap 11 BUN 6 L Creatinine 0.50 L Est GFR ( Amer) > 60 Est GFR (Non-Af Amer) > 60 Glucose 88 Calcium 9.3 Impressions: Chest X-Ray 02/09/19 00:00 IMPRESSION: There is loculated appearing pleural fluid and/or pleural soft tissue about the left upper lobe with a moderate left pleural effusion. Recommend contrast-enhanced CT to further evaluate. Venous Doppler Study 02/09/19 00:00 IMPRESSION: Positive examination for deep venous thrombosis in the left lower extremity with noncompressible thrombus present from the proximally imaged common femoral vein through the peroneal and posterior tibial veins in the left calf. Thrombus is age indeterminate. Status vessels are patent. Findings communicated to Dr. Lloyd, ER, 0840 hours, 02/09/[address] 02/09/19 03:01 IMPRESSION: No acute intracranial abnormalities. Negative for metastatic disease however MRI without and with contrast is far more sensitive Lung Scan-VQ NM 02/09/19 03:01 IMPRESSION: 1. Normal ventilation/perfusion lung scan. The scan is low probability for pulmonary embolism. 2. When a recent chest x-ray becomes available for comparison, an addendum will be issued. Abdomen/Pelvis CT 02/12/19 00:00 IMPRESSION: Findings consistent with widespread metastatic disease with greatest involvement in the left hemithorax, liver, and throughout the bones with greatest destructive changes in the right pelvis. Assessment and Plan - Diagnosis (1) Left leg DVT Qualifiers: Affected thrombotic vein of extremity: femoral Chronicity: acute Qualified Code(s): I82.412 - Acute embolism and thrombosis of left femoral vein Is this a current diagnosis for this admission?: Yes Plan: Patient complains of left lower extremity tenderness, edema, and erythema Ultrasound reveals noncompressible thrombus present from the approximately common femoral vein through the peroneal and posterior tibial veins in the left calf Patient was initially placed on heparin GTT; transitioned to full dose Lovenox yesterday. Discussed with Heme/Onc concern regarding patient's ability to continue management of Lovenox injections. Will transition to Xarelto 15 mg twice daily x 21 days followed by 20 mg daily. Encouraged ambulation. Tylenol for pain (2) Breast CA Qualifiers: Breast location: upper outer quadrant of breast Estrogen receptor status: positive Patient sex: female Laterality: right Qualified Code(s): C50.411 - Malignant neoplasm of upper-outer quadrant of right female breast; Z17.0 - Estrogen receptor positive status [ER+] Is this a current diagnosis for this admission?: Yes Plan: H metastatic breast cancer Currently taking letrozole Managed by oncology at [facility]; patient reports that she has had extreme difficulty with travel to [place] for routine care. She asks to be seen by a local oncologist to discuss feasibility of transferring her care to their service. CT Chest is pending. CT ABD/Pelvis revealed widespread metastatic disease with greatest involvement in the left hemithorax, liver, and throughout the bones with increased destructive changes to the right pelvis. Dr. Ruby is consulted; appreciate his evaluation and assistance. (3) Pleural effusion, left Is this a current diagnosis for this admission?: Yes Plan: Loculated pleural effusion seen on CXR Likely malignant in nature given the patient's PMH Patient requested second opinion; does not wish to transfer to [facility]. Patient does appear to be hemodynamically stable at this time, minimal dyspnea while at rest, maintaining oxygen saturations while on room air. Does not appear that she requires urgent/emergent thoracentesis or VATS procedure. Oncology is consulted; appreciate Dr. Ruby's evaluation and recommendation. (4) Shortness of breath Is this a current diagnosis for this admission?: Yes Plan: Improved. Secondary to loculated pleural effusion Maintains SPO2 > 92% on room air See plan above
[2019-02-13] MEDS: RIVAROXABAN 15 MG TABLET PO SCH (17:23)
[2019-02-14] MEDS: RIVAROXABAN 15 MG TABLET PO SCH (08:23)
--- NOTE | 2019-02-14 08:47 | PDOC PROGRESS REPORT ---
Subjective Progress Note for:: 02/14/19 Subjective:: Do not have the read of the CT of the chest but I reviewed the images myself, she does seem to have progression compared to what was seen on imaging one year ago, the left pleural effusion is certainly loculated and chronic, there is a lot of scarring, I believe decortication and pleurodesis would be an extensive procedure for her. Currently she does not seem to be overtly symptomatic of it so I think I would wait on that for right now. We discussed possible discharge home today with Xarelto 15 mg twice daily which she is tolerating swallowing. She will see me on . Reason For Visit: DVT Physical Exam Vital Signs: Temp Pulse Resp BP Pulse Ox 98.4 F 108 H 18 92/58 L 100 02/14/19 07:37 02/14/19 07:37 02/14/19 07:37 02/14/19 07:37 02/14/19 07:37 Intake & Output 02/13/19 02/14/19 02/15/19 06:59 06:59 06:59 Intake Total 1902 1012 Balance 1902 1012 Weight 52.8 kg 51.7 kg General appearance: PRESENT: no acute distress, well-developed, well-nourished Head exam: PRESENT: atraumatic, normocephalic Eye exam: PRESENT: conjunctiva pink, EOMI, PERRLA. ABSENT: scleral icterus Ear exam: PRESENT: normal external ear exam Mouth exam: PRESENT: moist, tongue midline Neck exam: ABSENT: carotid bruit, JVD, lymphadenopathy, thyromegaly Respiratory exam: PRESENT: clear to auscultation andreina. ABSENT: rales, rhonchi, wheezes Cardiovascular exam: PRESENT: RRR. ABSENT: diastolic murmur, rubs, systolic murmur Pulses: PRESENT: normal dorsalis pedis pul Vascular exam: PRESENT: normal capillary refill GI/Abdominal exam: PRESENT: normal bowel sounds, soft. ABSENT: distended, guarding, mass, organolmegaly, rebound, tenderness Rectal exam: PRESENT: deferred Extremities exam: PRESENT: full ROM. ABSENT: calf tenderness, clubbing, pedal edema Neurological exam: PRESENT: alert, awake, oriented to person, oriented to place, oriented to time, oriented to situation, CN II-XII grossly intact. ABSENT: motor sensory deficit Psychiatric exam: PRESENT: appropriate affect, normal mood. ABSENT: homicidal ideation, suicidal ideation Skin exam: PRESENT: dry, intact, warm. ABSENT: cyanosis, rash Results Laboratory Results: 02/13/19 05:51 02/13/19 05:51 Impressions: Chest X-Ray 02/09/19 00:00 IMPRESSION: There is loculated appearing pleural fluid and/or pleural soft tissue about the left upper lobe with a moderate left pleural effusion. Recommend contrast-enhanced CT to further evaluate. Venous Doppler Study 02/09/19 00:00 IMPRESSION: Positive examination for deep venous thrombosis in the left lower extremity with noncompressible thrombus present from the proximally imaged common femoral vein through the peroneal and posterior tibial veins in the left calf. Thrombus is age indeterminate. Status vessels are patent. Findings communicated to PRESTON Chapa, 0840 hours, 02/09/[address] 02/09/19 03:01 IMPRESSION: No acute intracranial abnormalities. Negative for metastatic disease however MRI without and with contrast is far more sensitive Lung Scan-VQ NM 02/09/19 03:01 IMPRESSION: 1. Normal ventilation/perfusion lung scan. The scan is low probability for pulmonary embolism. 2. When a recent chest x-ray becomes available for comparison, an addendum will be issued. Abdomen/Pelvis CT 02/12/19 00:00 IMPRESSION: Findings consistent with widespread metastatic disease with greatest involvement in the left hemithorax, liver, and throughout the bones with greatest destructive changes in the right pelvis. Assessment & Plan - Diagnosis (1) Left leg DVT Qualifiers: Affected thrombotic vein of extremity: femoral Chronicity: acute Qualified Code(s): I82.412 - Acute embolism and thrombosis of left femoral vein Is this a current diagnosis for this admission?: Yes Plan: Okay to DC home with Xarelto (2) Pleural effusion, left Is this a current diagnosis for this admission?: Yes Plan: May need thoracic surgery evaluation, but I will decide on that as an outpatient (3) Breast CA Qualifiers: Breast location: upper outer quadrant of breast Estrogen receptor status: positive Patient sex: female Laterality: right Qualified Code(s): C50.411 - Malignant neoplasm of upper-outer quadrant of right female breast; Z17.0 - Estrogen receptor positive status [ER+] Is this a current diagnosis for this admission?: Yes Plan: We will need to restart therapy for her, we will discuss this further as an outpatient (4) Pain, neoplasm-related Is this a current diagnosis for this admission?: Yes Plan: She is still adamant against any oral narcotics so I will discuss this further as an outpatient
[2019-02-14] MEDS: FAMOTIDINE 20 MG TABLET PO SCH (10:14)
[2019-02-14 10:51] VITALS: BP 97/59
--- NOTE | 2019-02-15 21:50 | PDOC DISCHARGE SUMMARY ---
General - Admit/Disc Date/PCP Admission Date/Primary Care Provider: 02/09/19 11:20 Discharge Date: 02/14/19 - Discharge Diagnosis (1) Left leg DVT Is this a current diagnosis for this admission?: Yes Summary: Patient presented with complaint of left lower extremity tenderness, edema, and erythema Ultrasound revealed noncompressible thrombus present from the approximately common femoral vein through the peroneal and posterior tibial veins in the left calf Patient was admitted to the medical floor on continuous cardiac telemetry. Patient was initially placed on heparin GTT; transitioned to Xarelto 15 mg twice daily x 21 days followed by 20 mg daily to continue post-discharge. Encouraged ambulation. Tylenol and Wayland for pain Oncology has been consulted; will follow as outpatient. At time of discharge, the patient is in stable condition, maintaining oxygen saturations while ambulatory on room air, with adequately controlled pain. She is discharged to home with home health services. She is advised to follow up with her primary care provider within [address] Ruby as scheduled on 02/17/19. She is provided prescriptions for Wayland, Zofran, and Xarelto. She is advised to return to the emergency department as needed for concerning symptoms. (2) Breast CA Is this a current diagnosis for this admission?: Yes Summary: PMH metastatic breast cancer; currently taking letrozole. CT Chest has been completed; final report pending at time of dictation. CT ABD/Pelvis revealed widespread metastatic disease with greatest involvement in the left hemithorax, liver, and throughout the bones with increased destructive changes to the right pelvis. Previously managed by oncology at [facility]; patient reported that she has had extreme difficulty with travel to [place] for routine care. She asked to be seen by a local oncologist to discuss feasibility of transferring her care to their service. Dr. Ruby is consulted; fortunately he is able to provide outpatient care so that the patient will no longer have to travel to [place]. Appreciate Dr. Ruby's assistance. (3) Pleural effusion, left Is this a current diagnosis for this admission?: Yes Summary: Loculated pleural effusion seen on CXR Likely malignant in nature given the patient's PMH; thoracentesis not completed. Originally planned to transfer to [facility]. Patient requested second opinion; does not wish to transfer to [facility]. As the patient was hemodynamically stable with minimal dyspnea while at rest and maintaining oxygen saturations while on room air; she does not require urgent/emergent thoracentesis or VATS procedure. Oncology was consulted; appreciate Dr. Ruby's evaluation and recommendations. Patient will follow up with him this week for routine monitoring and surgical and/or radiology interventions as indicated. (4) Shortness of breath Is this a current diagnosis for this admission?: Yes Summary: Improved. Secondary to loculated pleural effusion Maintains SPO2 > 92% on room air while ambulatory Follow up with Dr. Ruby this week; will arrange for outpatient management. - Additional Information Resuscitation Status: Full Code Discharge Diet: As Tolerated, Regular Discharge Activity: Activity As Tolerated, Balance Activity w/Rest Prescriptions: Hydrocodone/Acetaminophen [Wayland 5-325 Tablet] 1 each PO Q4HP PRN #20 tablet PRN Reason: Ondansetron [Zofran Odt 4 mg Tablet] 4 mg PO Q6HP PRN #20 tab.rapdis PRN Reason: Rivaroxaban [Xarelto 15 mg Tablet] 15 mg PO BIDBS #40 tablet Home Medications: Acetaminophen [Tylenol 325 mg Tablet] 975 mg PO Q6HP PRN tablet 02/14/19 Hydrocodone/Acetaminophen [Wayland 5-325 Tablet] 1 each PO Q4HP PRN #20 tablet 02/14/19 Ondansetron [Zofran Odt 4 mg Tablet] 4 mg PO Q6HP PRN #20 tab.rapdis 02/14/19 Rivaroxaban [Xarelto 15 mg Tablet] 15 mg PO BIDBS #40 tablet 02/14/19 History of Present Illness History of Present Illness: Per H&P by Jadyn Rosa NP-C: SERAFIN MENDIOLA is a 44 year old female with a PMH of metastatic breast cancer presented to the emergency department with LLE erythema and edema. Patient states that 48 hrs prior to arrival she hit the back of her heel on a chair and then developed swelling of her left calf and now the left thigh. Additionally, yesterday she was riding in a car for approximately 4 hours (this is following her foot injury). The patient's endorses significant LLE pain, and difficulty ambulating as a result of the pain. US reveals extensive DVT burden from left calf to pelvis. In addition to LLE pain, patient endorses recent URI symptoms. She denies dyspnea, shortness of breath or respiratory distress. CXR performed in the emergency department demonstrates left-sided loculated pleural effusion. Upon assessment, the patient is resting comfortably in bed on room air. She endorses LLE pain and swelling, denies paresthesia. LLE appears mildly erythematous with trace peripheral edema. DP and PT pulses are palpable. Lungs are clear to auscultation, diminished in the LLL. No evidence of peripheral or central cyanosis. S1-S2. ED physician talked to patient's oncologist at [facility] who agree that the patient requires care at a tertiary facility. Dr. Verdin, oncology at [facility] Medical Ce nter has accepted patient for transfer for likely VATS procedure for her pleural effusion. Plan to admit to hospitalist service while waiting for transfer to [facility]. Physical Exam Vital Signs: Temp Pulse Resp BP Pulse Ox 98.4 F 108 H 18 97/59 L 100 02/14/19 10:49 02/14/19 10:49 02/14/19 10:49 02/14/19 10:49 02/14/19 10:49 Intake & Output 02/14/19 02/15/19 02/16/19 06:59 06:59 06:59 Intake Total 1012 Balance 1012 Weight 51.7 kg General appearance: PRESENT: no acute distress, cooperative, thin, well- developed Head exam: PRESENT: atraumatic, normocephalic Eye exam: PRESENT: conjunctiva pink, EOMI, PERRLA. ABSENT: scleral icterus Mouth exam: PRESENT: moist, tongue midline Teeth exam: PRESENT: poor dentation Neck exam: ABSENT: carotid bruit, JVD, lymphadenopathy, thyromegaly Respiratory exam: PRESENT: clear to auscultation andreina, decreased breath sounds - Bibasilar; L>R, symmetrical, unlabored. ABSENT: rales, rhonchi, wheezes Cardiovascular exam: PRESENT: RRR. ABSENT: diastolic murmur, rubs, systolic murmur Pulses: PRESENT: normal dorsalis pedis pul Vascular exam: PRESENT: normal capillary refill GI/Abdominal exam: PRESENT: normal bowel sounds, soft. ABSENT: distended, guarding, mass, organolmegaly, rebound, tenderness Rectal exam: PRESENT: deferred Extremities exam: PRESENT: full ROM, +1 edema - LLE. ABSENT: calf tenderness, clubbing, pedal edema Musculoskeletal exam: PRESENT: ambulatory Neurological exam: PRESENT: alert, awake, oriented to person, oriented to place, oriented to time, oriented to situation, CN II-XII grossly intact. ABSENT: motor sensory deficit Psychiatric exam: PRESENT: appropriate affect, normal mood. ABSENT: homicidal ideation, suicidal ideation Skin exam: PRESENT: dry, intact, warm. ABSENT: cyanosis, rash Results Laboratory Results: 02/13/19 05:51 02/13/19 05:51 Impressions: Chest X-Ray 02/09/19 00:00 IMPRESSION: There is loculated appearing pleural fluid and/or pleural soft tissue about the left upper lobe with a moderate left pleural effusion. Recommend contrast-enhanced CT to further evaluate. Venous Doppler Study 02/09/19 00:00 IMPRESSION: Positive examination for deep venous thrombosis in the left lower extremity with noncompressible thrombus present from the proximally imaged common femoral vein through the peroneal and posterior tibial veins in the left calf. Thrombus is age indeterminate. Status vessels are patent. Findings communicated to Dr. Lloyd, ER, 0840 hours, 02/09/[address] 02/09/19 03:01 IMPRESSION: No acute intracranial abnormalities. Negative for metastatic disease however MRI without and with contrast is far more sensitive Lung Scan-VQ NM 02/09/19 03:01 IMPRESSION: 1. Normal ventilation/perfusion lung scan. The scan is low probability for pulmonary embolism. 2. When a recent chest x-ray becomes available for comparison, an addendum will be issued. Abdomen/Pelvis CT 02/12/19 00:00 IMPRESSION: Findings consistent with widespread metastatic disease with greatest involvement in the left hemithorax, liver, and throughout the bones with greatest destructive changes in the right pelvis. Qualifiers - * PATIENT BEING DISCHARGED WITH ANY OF THE FOLLOWING DIAGNOSIS: No Acute Heart Failure Is this a Heart Failure Patient?: No Plan Discharge Plan: Discharge home with home health nursing, PT, and social work. Follow up with PCP within 1 week. Follow up with Dr. Ruby as scheduled. Return to the emergency department as needed for concerning symptoms. Time Spent: Less than 30 Minutes
== END 2019-02-14 11:10 | disposition home or self-care (01) | DRG 299 ==
LOC: ER 00:29 → EH 10:53 → OBSVTOIN 11:20 → 3S 18:33
PROVIDERS: ADMIT Hospitalist; ATTEND Hospitalist
DX: I82.412 Acute embolism and thrombosis of left femoral vein (principal); I26.99 Other pulmonary embolism without acute cor pulmonale; C78.7 Secondary malignant neoplasm of liver and intrahepatic bile duct; C79.51 Secondary malignant neoplasm of bone; C78.02 Secondary malignant neoplasm of left lung; C78.01 Secondary malignant neoplasm of right lung; C50.411 Malignant neoplasm of upper-outer quadrant of right female breast; G89.3 Neoplasm related pain (acute) (chronic); Z90.13 Acquired absence of bilateral breasts and nipples; Z79.899 Other long term (current) drug therapy; Z75.1 Person awaiting admission to adequate facility elsewhere; Z17.0 Estrogen receptor positive status [ER+]
CPT/HCPCS: 36415; 70450; 71046; 71250; 74176; 78582; 80048; 80053; 81001; 81025; 82272; 83605; 83735; 84100; 85025; 85027; 85610; 85730; 87040; 93005; 93010; 93971; 96361; 96365; 96366; 96368; 96375; 96376; 99285; A9540; A9567; J1644; J1650; J1956; J2060; J3490; J7030; Q9969

== ENCOUNTER 2019-03-08 18:22 | Emergency (ER) | payer MEDICAID ==
--- NOTE | 2019-03-08 19:37 | ER Document Report ---
ED Medical Screen (RME) - General Chief Complaint: Back Pain Stated Complaint: LEFT LEG PAIN Time Seen by Provider: 03/08/19 19:30 Mode of Arrival: Wheelchair Information source: Patient Notes: 44-year-old female presents to ED for left leg pain. While was examining the patient she states that she has lower back pain radiating to the left going down the left leg but she was diagnosed with a DVT to the left leg on February 09 was in the hospital on heparin for 5 days and is now on Xarelto. Patient is alert oriented respirations regular and unlabored speaking in full sentences. She does have lumbar vertebral tenderness as well as across the left buttocks. She also has pain down the back of the left leg. Will get a venous Doppler of the left leg and a x-ray of the lumbar spine. I have greeted and performed a rapid initial assessment of this patient. A comprehensive ED assessment and evaluation of the patient, analysis of test results and completion of medical decision making process will be conducted by an additional ED providers. Dictation of this chart was performed using voice recognition software; therefore, there may be some unintended grammatical errors. TRAVEL OUTSIDE OF THE [place] IN LAST 30 DAYS: No - Related Data Allergies/Adverse Reactions: Antihistamines - Alkylamine Adverse Reaction (Verified 03/08/19 18:40) Tachycardia contrast dye Allergy (Uncoded 03/08/19 18:40) Anaphylaxis Past Medical History - Social History Frequency of alcohol use: None Drug Abuse: None Renal/ Medical History: Reports: Hx Kidney Stones. Denies: Hx Peritoneal Dialysis Malignancy Medical History: Reports: Hx Breast Cancer, Hx Lung Cancer Past Surgical History: Reports: Hx Breast Surgery - bilat. mastectomy and reconstruction, Other - Bilateral mastectomy with reconstruction, sternal excision - Immunizations Hx Diphtheria, Pertussis, Tetanus Vaccination: No Physical Exam - Vital signs Vitals: Temp Pulse Resp BP Pulse Ox 98.1 F 117 H 18 104/73 100 03/08/19 18:46 03/08/19 18:46 03/08/19 18:46 03/08/19 18:46 03/08/19 18:46 Course - Vital Signs Vital signs: Temp Pulse Resp BP Pulse Ox 98.1 F 117 H 18 104/73 100 03/08/19 18:46 03/08/19 18:46 03/08/19 18:46 03/08/19 18:46 03/08/19 18:46
--- NOTE | 2019-03-08 20:32 | RADIOLOGY REPORT (SQ) ---
5 VIEWS OF LUMBAR SPINE HISTORY: Lower back pain. COMPARISON: 02/12/2019 CT scan. FINDINGS: Generalized osteopenia is present. There is heterogeneous pattern of the bones also present on prior study. Age-indeterminate compression deformity of L1 also seen on prior study from 02/12/2019. There may be additional compression deformity of L5. Mild degenerative disc disease at L5-S1. The SI joints are intact. IMPRESSION: L1 compression deformity, also seen on prior study from 02/12/2019. Possible additional compression deformity of L5. Consider MRI for complete evaluation.
[2019-03-08] MEDS ORDERED: ACETAMINOPHEN 325 MG TABLET PO ONE (21:33)
--- NOTE | 2019-03-08 22:18 | RADIOLOGY REPORT (SQ) ---
EXAM DESCRIPTION: US EXTREMITY VEINS UNILATERAL COMPLETED DATE/TME: 03/08/2019 19:35 CLINICAL HISTORY: left leg pain hx of dvt february 09, also low back pain COMPARISON: February 09, 2019 TECHNIQUE: Duplex images of the common femoral, superficial femoral, greater saphenous, popliteal, and posterior tibial veins of the left lower extremity were submitted. FINDINGS: There is occlusive thrombus extending from the common femoral vein to the distal superficial femoral vein compatible with acute DVT. IMPRESSION: Acute occlusive DVT from the left common femoral vein to the distal superficial femoral vein.
[2019-03-08 22:46] LABS: ALANINE AMINOTRANSFERASE 29 U/L (9-52); ALBUMIN 3.8 g/dL (3.5-5.0); ALKALINE PHOSPHATASE 614 U/L (38-126); ANION GAP 16 (5-19); ASPARTATE AMINO TRANSFERASE 90 U/L (14-36); BILIRUBIN,DIRECT 0.5 mg/dL (0.0-0.4); BILIRUBIN,TOTAL 0.7 mg/dL (0.2-1.3); BLOOD UREA NITROGEN 8 mg/dL (7-20); CALCIUM 9.9 mg/dL (8.4-10.2); CARBON DIOXIDE 22 mmol/L (22-30); CHLORIDE 101 mmol/L (98-107); GLUCOSE 90 mg/dL (75-110); POTASSIUM 3.9 mmol/L (3.6-5.0); SODIUM 138.6 mmol/L (137-145); TOTAL PROTEIN 7.4 g/dL (6.3-8.2)
[2019-03-08] MEDS ORDERED: LIDOCAINE 5% (700 MG) TRANSDERMAL ADH..PATCH TP ONE (23:00)
[2019-03-08] MEDS ORDERED: MORPHINE SULFATE IR 15 MG TABLET PO ONE (23:00)
--- NOTE | 2019-03-08 23:05 | ER Document Report ---
ED General - General Chief Complaint: Back Pain Stated Complaint: LEFT LEG PAIN Time Seen by Provider: 03/08/19 19:30 Primary Care Provider: NIRAV ESTES MD [Primary Care Provider] - Follow up tomorrow Mode of Arrival: Wheelchair Notes: Patient is a 44-year-old female with a past medical history of metastatic breast cancer who presents with acute on chronic low back pain. Patient states that she chronically has pain in her low back radiating down her left lower extremity but the pain became worse today after doing physical therapy. Describes it as a throbbing, aching, constant pain to her low back with shooting, aching discomfort down to her left leg. States that the pain is dramatically worsened by moving the back or walking. Has tried hydrocodone with minimal to no relief of the back pain. Denies bowel or bladder incontinence, urinary retention, inability to ablate, focal weakness or numbness. Is following with a local oncologist. Denies chest pain or shortness of breath. States that the main reason she came to the emergency department tonight is for pain control. TRAVEL OUTSIDE OF THE [place] IN LAST 30 DAYS: No - Related Data Allergies/Adverse Reactions: Antihistamines - Alkylamine Adverse Reaction (Verified 03/08/19 18:40) Tachycardia contrast dye Allergy (Uncoded 03/08/19 18:40) Anaphylaxis Past Medical History - General Information source: Patient - Social History Smoking Status: Never Smoker Frequency of alcohol use: None Drug Abuse: None Lives with: Spouse/Significant other Family History: Reviewed & Not Pertinent, Malignancy - MOTHER - BREAST CA Patient has suicidal ideation: No Patient has homicidal ideation: No Renal/ Medical History: Reports: Hx Kidney Stones. Denies: Hx Peritoneal Dial ysis Malignancy Medical History: Reports: Hx Breast Cancer, Hx Lung Cancer Past Surgical History: Reports: Hx Breast Surgery - bilat. mastectomy and r econstruction, Other - Bilateral mastectomy with reconstruction, sternal excision - Immunizations Hx Diphtheria, Pertussis, Tetanus Vaccination: No Hx Pneumococcal Vaccination: 07/12/14 Review of Systems - Review of Systems Notes: Constitutional: Negative for fever. HENT: Negative for sore throat. Eyes: Negative for visual changes. Cardiovascular: Negative for chest pain. Respiratory: Negative for shortness of breath. Gastrointestinal: Negative for abdominal pain, vomiting or diarrhea. Genitourinary: Negative for dysuria. Musculoskeletal: Positive for low back pain and left leg pain Skin: Negative for rash. Neurological: Negative for headaches, weakness or numbness. 10 point ROS negative except as marked above and in HPI. Physical Exam - Vital signs Vitals: Temp Pulse Resp BP Pulse Ox 98.1 F 117 H 18 104/73 100 03/08/19 18:46 03/08/19 18:46 03/08/19 18:46 03/08/19 18:46 03/08/19 18:46 Interpretation: Tachycardic Notes: PHYSICAL EXAMINATION: GENERAL: Frail, appears older than stated age HEAD: Atraumatic, normocephalic. EYES: Pupils equal round and reactive to light, extraocular movements intact, sclera anicteric, conjunctiva are normal. ENT: nares patent, oropharynx clear without exudates. Moist mucous membranes. NECK: Normal range of motion, supple without lymphadenopathy LUNGS: Breath sounds clear to auscultation bilaterally and equal. No wheezes rales or rhonchi. HEART: Regular rate and rhythm without murmurs ABDOMEN: Soft, nontender, normoactive bowel sounds. No guarding, no rebound. No masses appreciated. EXTREMITIES: Normal range of motion, no pitting or edema. No cyanosis. Back: Focal tenderness throughout palpation of the entirety of the lumbar spine. NEUROLOGICAL: 5 out of 5 strength both distally and proximally bilateral lower extremities. 2+ patellar reflexes bilaterally. No clonus. Sensation grossly intact in the bilateral lower extremities. Patient is able to ambulate. PSYCH: Normal mood, normal affect. SKIN: Warm, Dry, normal turgor, no rashes or lesions noted. Course - Re-evaluation Re-evalutation: 03/08/19 23:03 Patient presents with several days of progressively worsening low back pain with radiation of pain into her left lower extremity without any focal weakness, numbness or inability to ambulate. Lumbar spine x-ray does demonstrate pathologic fractures of L1 and 5 likely secondary to metastatic disease to the area of which she has a known history. The patient has no bowel or bladder incontinence, no urinary retention, is able to ambulate, has 5 out of 5 distal and proximal strength in the bilateral lower extremities and 2+ patellar and ankle reflexes bilaterally. A venous Doppler ultrasound was obtained of her left lower cavity in triage although the patient has a known history of DVT to this extremity. Acute versus chronic DVT is again noted and patient is already anticoagulated on Xarelto. She has only been anticoagulated for 3 weeks and this would not be deemed as treatment failure. I have discussed this case with the patient's oncologist who is already going to follow the patient up tomorrow and has been advised of findings here in the emergency department today. In agreement with the management plan. At this time will discharge with return precautions and follow-up recommendations. Verbal discharge instructions given a the bedside and opportunity for questions given. Medication warnings reviewed. Patient is in agreement with this plan and has verbalized understanding of return precautions and the need for primary care follow-up in the next 24-72 hours. - Vital Signs Vital signs: Temp Pulse Resp BP Pulse Ox 98.5 F 112 H 17 111/76 98 03/08/19 23:06 03/08/19 23:30 03/08/19 23:06 03/08/19 23:06 03/08/19 23:06 - Laboratory Result Diagrams: 03/08/19 21:06 Laboratory results interpreted by me: 03/08/19 21:06 Creatinine 0.48 L Direct Bilirubin 0.5 H AST 90 H Alkaline Phosphatase 614 H - Diagnostic Test Radiology reviewed: Reports reviewed Discharge - Discharge Clinical Impression: Left leg pain Left leg DVT Qualifiers: Affected thrombotic vein of extremity: femoral Chronicity: acute Qualified Code(s): I82.412 - Acute embolism and thrombosis of left femoral vein Pathologic lumbar vertebral fracture Qualifiers: Encounter type: initial encounter Qualified Code(s): M84.48XA - Pathological fracture, other site, initial encounter for fracture Condition: Stable Disposition: HOME, SELF-CARE Additional Instructions: Please follow-up with your oncologist tomorrow as scheduled. For pain take Tylenol 1000 mg every 6 hours scheduled. Use oral morphine tablets 1 tablet every 4-6 hours as needed for severe pain. You can apply the topical Voltaren gel as prescribed. Your x-rays seem to indicate that you have pathological fractures of several vertebra in your lumbar spine likely related to metastatic cancer. The clot in your left leg is still present and may even be bigger. Please continue to take the anticoagulations as prescribed. Return if you develop inability to walk, focal weakness or numbness, incontinence of urine, urinary retention, fever of greater than 100.4 F, or any other symptoms that are worrisome to you. Prescriptions: Morphine Sulfate [Morphine Ir 15 mg Tablet] 15 mg PO Q6HP PRN #12 tablet PRN Reason: Diclofenac Sodium [Voltaren] 100 gm TP TID PRN #100 gel..gm. PRN Reason: Referrals: NIRAV ESTES MD [Primary Care Provider] - Follow up tomorrow
[2019-03-08 23:08] VITALS: BP 111/76
== END 2019-03-08 23:45 | disposition home or self-care (01) ==
LOC: ER 18:22
DX: I82.412 Acute embolism and thrombosis of left femoral vein (principal); M84.48XA Pathological fracture, other site, initial encounter for fracture; M79.605 Pain in left leg; M54.9 Dorsalgia, unspecified; X58.XXXA Exposure to other specified factors, initial encounter; Z87.442 Personal history of urinary calculi; Z85.118 Personal history of other malignant neoplasm of bronchus and lung; Z85.3 Personal history of malignant neoplasm of breast
CPT/HCPCS: 99284; 36415; 80053; 93971; 72110; J3490 ×2

== ENCOUNTER 2019-05-19 01:04 | Inpatient (IN) | payer MEDICAID ==
[2019-05-19] MEDS ORDERED: NORMAL SALINE 1000 ML 1,000 ML IV ONE (01:18)
--- NOTE | 2019-05-19 01:19 | ER Document Report ---
ED Fever - General Stated Complaint: FEVER Time Seen by Provider: 05/19/19 01:08 Notes: Patient is a 44-year-old female that comes emergency department for chief complaint of fever. She states she has felt feverish since Thursday, she also had her first chemotherapy dose on this round for metastatic breast cancer (metastasis to the bones). She comes by EMS, she was found to have an initial temperature of 101.1 Fahrenheit, she was given 975 mg of Tylenol. She states she had a headache earlier but not now, she reports pain in her back but this is not new, she has had some vague shortness of breath. She denies any new symptoms. She is currently on a blood thinner for a DVT in the left leg. She denies shortness of breath, abdominal pain, rash, sore throat. She denies medical history otherwise. She is following with oncologist Dr. Ruby. TRAVEL OUTSIDE OF THE [place] IN LAST 30 DAYS: No - Related Data Allergies/Adverse Reactions: Antihistamines - Alkylamine Adverse Reaction (Verified 03/08/19 18:40) Tachycardia contrast dye Allergy (Uncoded 03/08/19 18:40) Anaphylaxis Past Medical History - General Information source: Patient, Relative - Fianc - Social History Smoking Status: Never Smoker Frequency of alcohol use: None Drug Abuse: None Lives with: Family Family History: Reviewed & Not Pertinent, Malignancy - MOTHER - BREAST CA - Past Medical History Cardiac Medical History: Reports: Hx DVT Renal/ Medical History: Reports: Hx Kidney Stones. Denies: Hx Peritoneal Dialysis Malignancy Medical History: Reports: Hx Breast Cancer - With metastasis to bones Past Surgical History: Reports: Hx Breast Surgery - bilat. mastectomy and reconstruction, Other - Bilateral mastectomy with reconstruction, sternal excision - Immunizations Hx Diphtheria, Pertussis, Tetanus Vaccination: No Hx Pneumococcal Vaccination: 07/12/14 Review of Systems - Review of Systems Constitutional: See HPI EENT: No symptoms reported Cardiovascular: No symptoms reported Respiratory: No symptoms reported Gastrointestinal: No symptoms reported Genitourinary: No symptoms reported Female Genitourinary: No symptoms reported Musculoskeletal: See HPI Skin: No symptoms reported Hematologic/Lymphatic: No symptoms reported Neurological/Psychological: See HPI Physical Exam - Vital signs Vitals: Temp Resp BP Pulse Ox 99.1 F 20 122/82 93 05/19/19 01:12 05/19/19 01:12 05/19/19 01:12 05/19/19 01:12 - Notes Notes: GENERAL: Alert, interacts well. No acute distress. HEAD: Normocephalic, atraumatic. EYES: Pupils equal, round, and reactive to light. Extraocular movements intact. ENT: Oral mucosa moist, tongue midline. Oropharynx unremarkable. Airway patent. Nares patent NECK: Full range of motion. Supple. Trachea midline. LUNGS: Clear to auscultation bilaterally, no wheezes, rales, or rhonchi. No respiratory distress. HEART: Tachycardia, normal rhythm, no murmur ABDOMEN: Soft, non-tender. Non-distended. Bowel sounds present in all 4 quadrants. GENITOURINARY: Deferred EXTREMITIES: Moves all 4 extremities spontaneously. Edema noted in both lower extremities, worse on the left. Normal radial and dorsalis pedis pulses bilaterally. No cyanosis. BACK: no cervical, thoracic, lumbar midline tenderness. No saddle anesthesia, normal distal neurovascular exam. NEUROLOGICAL: Alert and oriented x3. Normal speech. Cranial nerves II through XII grossly intact. PSYCH: Normal affect, normal mood. SKIN: Pale and very warm. Course - Re-evaluation Re-evalutation: Patient is tachycardic, pale, somewhat ill-appearing. She has no nuchal rigidity, she denies headache, no rash, soft abdomen. Lungs are clear. No hypoxia. Blood pressure is normal. Septic work-up initiated, giving IV fluids, patient has been treated for her fever. CBC shows leukocytosis at 11.3 with elevation of neutrophils and 3 bands. Chemistry nonspecific. Lactic acid is not elevated. Urinalysis unremarkable. Chest x-ray showing what appears to be pneumonia. Patient has had some vague shortness of breath. She is somewhat ill-appearing. She is not neutropenic. Patient will be started on antibiotics. Because of her chemotherapy, tachycardia, ill appearance with pneumonia, discussed with patient and recommended admission to the hospital. Patient only has 22-gauge access in the left hand, right extremity is restricted with history of right-sided breast cancer. Difficult access, I was able to place a 20-gauge IV in the left upper arm using ultrasound. 05/19/19 03:00 Called and spoke with Dr. Ruby, patient's oncologist, he agrees with admission plan and requested a consult be placed for him to see the patient. Spoke with Dr. Cueto, patient will be admitted to telemetry full admission. Patient and fianc at bedside state understanding and agreement with plan. - Vital Signs Vital signs: Temp Pulse Resp BP Pulse Ox 99.1 F 20 103/73 97 05/19/19 03:17 05/19/19 03:17 05/19/19 03:17 05/19/19 02:38 - Laboratory Result Diagrams: 05/19/19 01:30 05/19/19 01:30 Laboratory results interpreted by me: 05/19/19 05/19/19 05/19/19 01:30 01:30 02:23 WBC 11.3 H RBC 3.31 L Hgb 10.5 L Hct 31.9 L RDW 17.0 H Seg Neuts % (Manual) 93 H Lymphocytes % (Manual) 3 L Monocytes % (Manual) 1 L Abs Neuts (Manual) 10.6 H Abs Lymphs (Manual) 0.3 L Sodium 131.9 L Creatinine 0.44 L Glucose 152 H Calcium 7.6 L Direct Bilirubin 0.6 H AST 170 H Alkaline Phosphatase 1186 H Total Protein 6.0 L Albumin 2.9 L Urine Blood SMALL H - EKG Interpretation by Me Additional EKG results interpreted by me: EKG shows sinus tachycardia at a rate of 127, QTC of 466, borderline T waves in V5 and V6 but no ischemic T waves noted. No ST segment changes in consecutive leads. Normal axis. Discharge - Discharge Clinical Impression: Tachycardia Fever Qualifiers: Fever type: unspecified Qualified Code(s): R50.9 - Fever, unspecified Pneumonia Qualifiers: Pneumonia type: due to unspecified organism Laterality: left Lung location: lower lobe of lung Qualified Code(s): J18.1 - Lobar pneumonia, unspecified organism Condition: Fair Disposition: ADMITTED INPATIENT Admitting Provider: Nory (Hospitalist) Unit Admitted: Telemetry
[2019-05-19 01:47] LABS: HEMATOCRIT 31.9 % (36.0-47.0); HEMOGLOBIN 10.5 g/dL (12.0-15.5); MEAN CORPUSCULAR HEMOGLOBIN 31.6 pg (27.0-33.4); MEAN CORPUSCULAR HGB CONC 32.7 g/dL (32.0-36.0); MEAN CORPUSCULAR VOLUME 96 fl (80-97); PLATELET COUNT 229 10^3/uL (150-450); RED BLOOD COUNT 3.31 10^6/uL (3.72-5.28); VENOUS BLOOD BASE EXCESS -0.7 mmol/L; VENOUS BLOOD HCO3 23.5 mmol/L (20-32); VENOUS BLOOD PCO2 37.2 mmHg (35-63); VENOUS BLOOD PH 7.42 (7.30-7.42); WHITE BLOOD COUNT 11.3 10^3/uL (4.0-10.5)
[2019-05-19 02:07] LABS: ALBUMIN 2.9 g/dL (3.5-5.0); ALKALINE PHOSPHATASE 1186 U/L (38-126); ANION GAP 8 (5-19); ASPARTATE AMINO TRANSFERASE 170 U/L (14-36); BILIRUBIN,DIRECT 0.6 mg/dL (0.0-0.4); BILIRUBIN,TOTAL 0.9 mg/dL (0.2-1.3); BLOOD UREA NITROGEN 10 mg/dL (7-20); CALCIUM 7.6 mg/dL (8.4-10.2); CARBON DIOXIDE 23 mmol/L (22-30); CHLORIDE 101 mmol/L (98-107); GLUCOSE 152 mg/dL (75-110); POTASSIUM 3.8 mmol/L (3.6-5.0)
[2019-05-19 02:09] LABS: ABSOLUTE LYMPHOCYTES# (MANUAL) 0.3 10^3/uL (0.5-4.7); ABSOLUTE MONOCYTES # (MANUAL) 0.3 10^3/uL (0.1-1.4); BAND NEUTROPHILS % (MANUAL) 3 % (3-5); BASOPHILS % (MANUAL) 0 % (0-2); EOSINOPHILS % (MANUAL) 0 % (0-6); LYMPHOCYTES % (MANUAL) 3 % (13-45); TOTAL CELLS COUNTED 100
[2019-05-19 02:10] LABS: ANISOCYTOSIS 1+
[2019-05-19 02:11] LABS: MONOCYTES % (MANUAL) 1 % (3-13); PLATELET COMMENT ADEQUATE; SEGMENTED NEUTROPHILS % (MAN) 93 % (42-78)
--- NOTE | 2019-05-19 02:42 | RADIOLOGY REPORT (SQ) ---
CLINICAL HISTORY: fever, chemotherapy COMPARISON: 12/01/2014. TECHNIQUE: XR CHEST 1 VIEW 05/19/2019 1:17 AM CDT FINDINGS: The heart is mildly enlarged. There is a large left basilar consolidation. There is a large left pleural effusion. There is a trace right pleural effusion. There is no pneumothorax. There are no acute osseous findings. IMPRESSION: Large left basilar presumed pneumonia with pleural effusions.
[2019-05-19 02:45] LABS: APPEARANCE,URINE CLEAR; BILIRUBIN,URINE NEGATIVE (NEGATIVE); COLOR,URINE YELLOW; GLUCOSE, URINE NEGATIVE (NEGATIVE); KETONES,URINE NEGATIVE (NEGATIVE); LEUKOCYTE ESTERASE,URINE NEGATIVE (NEGATIVE); NITRITE,URINE NEGATIVE (NEGATIVE); PROTEIN,URINE NEGATIVE (NEGATIVE); URINE SPECIFIC GRAVITY 1.013; UROBILINOGEN,URINE NEGATIVE mg/dL (<2.0)
[2019-05-19] MEDS ORDERED: AZITHROMYCIN INJ 500 MG VIAL IV ONE (02:51)
[2019-05-19] MEDS ORDERED: CEFTRIAXONE 1 GM/D5W RTU 1 GM/50 ML RTUPB IV ONE (02:51)
[2019-05-19] MEDS ORDERED: CEFTRIAXONE INJ 1000 MG VIAL ONE (03:01)
[2019-05-19] MEDS ORDERED: ACETAMINOPHEN 325 MG TABLET PO PRN (04:14)
[2019-05-19] MEDS ORDERED: GUAIFENESIN SYRP 200 MG/10 ML UDC PO PRN (04:14)
[2019-05-19] MEDS ORDERED: MORPHINE SULFATE 10 MG/ML INJ IV PRN ×2 (04:18→04:41)
[2019-05-19] MEDS ORDERED: RINGERS SOLUTION,LACTATED 1,000 ML IV ONE (05:45)
--- NOTE | 2019-05-19 06:03 | PDOC H&P ---
History of Present Illness Admission Date/PCP: 05/19/19 03:13 NIRAV RUBY MD Patient complains of: Fever History of Present Illness: SERAFIN MENDIOLA is a 44 year old female who presented to the emergency room with a 3 day history of fever. Patient states that she developed a subjective fever Thursday and has gradually noticed worsening of her febrile associated symptoms of chills, malaise, fatigue, rapid heart palpitations and exertional dyspnea. She gives additional history that she is currently being treated with chemotherapy for metastatic breast cancer and recently was found to have a deep venous thrombosis in her left lower extremity. She denies prior similar episodes and has not identified any other aggravating or ameliorating factors for her fever. EMS found her to have an elevated temperature of 101.1 F and administered 975 mg of acetaminophen prior to the patient's arrival. In the ER the patient was noted to be tachycardic in the 120s and was found to have an elevated white blood count of 11,300. Her serum lactate was normal and her chest x-ray revealed a left-sided lobar pneumonia and a large left pleural effusion. With these findings antibiotic therapy was initiated and patient was admitted to the hospital for further evaluation and treatment. Past Medical History Cardiac Medical History: Denies: Coronary Artery Disease, Hypertension Pulmonary Medical History: Denies: Asthma, Chronic Obstructive Pulmonary Disease (COPD), Pneumonia EENT Medical History: Denies: Cataracts, Nose - Allergic rhinitis Neurological Medical History: Denies: Hemorrhagic CVA, Ischemic CVA, Seizures Endocrine Medical History: Denies: Diabetes Mellitus Type 1, Diabetes Mellitus Type 2, Hyperthyroidism, Hypothyroidism, Obesity Renal/ Medical History: Denies: Chronic Kidney Disease Malignancy Medical History: Reports: Breast Cancer - With metastasis to lung liver and bone GI Medical History: Denies: Cirrhosis, Crohn's Disease, Hepatitis, Ulcerative Colitis Musculoskeltal Medical History: Denies: Arthritis, Gout Skin Medical History: Denies: Eczema, Psoriasis Psychiatric Medical History: Denies: Alcohol Dependency, Substance Abuse, Tobacco Dependency Traumatic Medical History: Reports: None Hematology: Reports: Anemia - Chronic with chemotherapy Denies: Bleeding Tendencies Infectious Medical History: Reports: None Past Surgical History Past Surgical History: Reports: Mastectomy - Bilateral with reconstruction, Other - Sternal excision Social History Information Source: Patient Lives with: Spouse/Significant other Smoking Status: Never Smoker Frequency of Alcohol Use: None Hx Recreational Drug Use: No Drugs: None Hx Prescription Drug Abuse: No - Advance Directive Resuscitation Status: Full Code Surrogate healthcare decision maker:: Sigifredo Razo Family History Family History: Malignancy - MOTHER - BREAST CA Parental Family History Reviewed: Yes Children Family History Reviewed: No Sibling(s) Family History Reviewed.: Yes Medication/Allergy Home Medications: Acetaminophen [Tylenol 325 mg Tablet] 975 mg PO Q6HP PRN tablet 02/14/19 Hydrocodone/Acetaminophen [Graham 5-325 Tablet] 1 each PO Q4HP PRN #20 tablet 02/14/19 Ondansetron [Zofran Odt 4 mg Tablet] 4 mg PO Q6HP PRN #20 tab.rapdis 02/14/19 Rivaroxaban [Xarelto 15 mg Tablet] 15 mg PO BIDBS #40 tablet 02/14/19 Diclofenac Sodium [Voltaren] 100 gm TP TID PRN #100 gel..gm. 03/08/19 Morphine Sulfate [Morphine Ir 15 mg Tablet] 15 mg PO Q6HP PRN #12 tablet 03/08/19 Allergies/Adverse Reactions: Antihistamines - Alkylamine Adverse Reaction (Verified 03/08/19 18:40) Tachycardia contrast dye Allergy (Uncoded 03/08/19 18:40) Anaphylaxis Review of Systems Constitutional: PRESENT: as per HPI, chills, fatigue, fever(s), headache(s) - Occasional, other - Malaise Eyes: ABSENT: visual disturbances, other - Ocular pain Ears: ABSENT: hearing changes, other - Ear pain Nose, Mouth, and Throat: ABSENT: mouth pain, sore throat Cardiovascular: PRESENT: dyspnea on exertion - Mild, palpitations - Rapid palpitations. ABSENT: chest pain, edema, orthropnea Respiratory: ABSENT: cough, dyspnea Gastrointestinal: ABSENT: abdominal pain, constipation, diarrhea, nausea, vomiting Genitourinary: ABSENT: dysuria, hematuria Musculoskeletal: PRESENT: back pain - Secondary to metastatic disease. ABSENT: joint swelling, muscle weakness Integumentary: ABSENT: pruritus, rash Neurological: ABSENT: confusion, convulsions, focal weakness, memory loss, syncope Psychiatric: ABSENT: anxiety, depression Endocrine: ABSENT: cold intolerance, heat intolerance Hematologic/Lymphatic: ABSENT: easy bleeding, easy bruising Allergic/Immunologic: ABSENT: seasonal rhinorrhea Physical Exam Vital Signs: Intake & Output 08/03/3005/18/19 05/19/19 23:59 23:59 23:59 Intake Total 1000 Balance 1000 Weight 47 kg General appearance: PRESENT: no acute distress, cooperative, thin Head exam: PRESENT: atraumatic, normocephalic Eye exam: PRESENT: conjunctiva pink. ABSENT: conjunctival injection, scleral icterus Ear exam: PRESENT: normal external ear exam. ABSENT: bleeding, drainage Mouth exam: PRESENT: dry mucosa, neck supple Neck exam: ABSENT: JVD, thyromegaly, tracheal deviation Respiratory exam: PRESENT: decreased breath sounds - Left base, rales - Coarse rales present in the left lower lung [place], rhonchi - Rhonchi noted in left lower lung val[place], symmetrical, unlabored, other - Dullness to percussion noted in the left lower lung valdivia Cardiovascular exam: PRESENT: RRR. ABSENT: clicks, gallop, rubs Pulses: PRESENT: normal radial pulses, normal dorsalis pedis pul Vascular exam: PRESENT: normal capillary refill. ABSENT: pallor GI/Abdominal exam: PRESENT: normal bowel sounds, soft. ABSENT: tenderness Rectal exam: PRESENT: deferred Extremities exam: ABSENT: joint swelling, pedal edema Musculoskeletal exam: ABSENT: deformity, dislocation Neurological exam: PRESENT: alert, oriented to person, oriented to place, oriented to time, oriented to situation, CN II-XII grossly intact. ABSENT: motor sensory deficit Psychiatric exam: PRESENT: appropriate affect, normal mood Skin exam: PRESENT: dry, intact, warm. ABSENT: jaundice, rash, urticaria Results Laboratory Results: 05/19/19 01:30 05/19/19 01:30 05/19/19 05/19/19 05/19/19 01:30 01:30 01:30 WBC 11.3 H RBC 3.31 L Hgb 10.5 L Hct 31.9 L MCV 96 MCH 31.6 MCHC 32.7 RDW 17.0 H Plt Count 229 Seg Neutrophils % Not Reportable Lymphocytes % Not Reportable Monocytes % Not Reportable Eosinophils % Not Reportable Basophils % Not Reportable Absolute Neutrophils Not Reportable Absolute Lymphocytes Not Reportable Absolute Monocytes Not Reportable Absolute Eosinophils Not Reportable Absolute Basophils Not Reportable VBG pH VBG pCO2 VBG HCO3 VBG Base Excess Sodium 131.9 L Potassium 3.8 Chloride 101 Carbon Dioxide 23 Anion Gap 8 BUN 10 Creatinine 0.44 L Est GFR ( Amer) > 60 Est GFR (Non-Af Amer) > 60 Glucose 152 H Lactic Acid 1.9 Calcium 7.6 L Total Bilirubin 0.9 AST 170 H Alkaline Phosphatase 1186 H Total Protein 6.0 L Albumin 2.9 L Serum HCG, Qual Urine Color Urine Appearance Urine pH Ur Specific [place] Urine Protein Urine Glucose (UA) Urine Ketones Urine Blood Urine Nitrite Ur Leukocyte Esterase Urine WBC (Auto) Urine RBC (Auto) 05/19/19 05/19/19 05/19/19 01:30 01:30 02:23 WBC RBC Hgb Hct MCV MCH MCHC RDW Plt Count Seg Neutrophils % Lymphocytes % Monocytes % Eosinophils % Basophils % Absolute Neutrophils Absolute Lymphocytes Absolute Monocytes Absolute Eosinophils Absolute Basophils VBG pH 7.42 VBG pCO2 37.2 VBG HCO3 23.5 VBG Base Excess -0.7 Sodium Potassium Chloride Carbon Dioxide Anion Gap BUN Creatinine Est GFR ( Amer) Est GFR (Non-Af Amer) Glucose Lactic Acid Calcium Total Bilirubin AST Alkaline Phosphatase Total Protein Albumin Serum HCG, Qual NEGATIVE Urine Color YELLOW Urine Appearance CLEAR Urine pH 7.0 Ur Specific [place] 1.013 Urine Protein NEGATIVE Urine Glucose (UA) NEGATIVE Urine Ketones NEGATIVE Urine Blood SMALL H Urine Nitrite NEGATIVE Ur Leukocyte Esterase NEGATIVE Urine WBC (Auto) 4 Urine RBC (Auto) 2 Impressions: Chest X-Ray 05/19/19 01:17 IMPRESSION: Large left basilar presumed pneumonia with pleural effusions. Assessment and Plan - Diagnosis (1) Community acquired pneumonia of left lung Qualifiers: Lung location: unspecified part of lung Qualified Code(s): J18.9 - Pneumoni a, unspecified organism Is this a current diagnosis for this admission?: Yes Plan: Patient will be treated with IV Zithromax and IV Rocephin, as well as IV fluids. Daily CBCs, metabolic profiles and magnesium levels will be followed. Periodic chest x-rays will be used as necessary to follow the course of her disease process. (2) Elevated temperature due to infection Is this a current diagnosis for this admission?: Yes Plan: Patient's elevated temperature will be treated with acetaminophen 650 mg orally every 4 hours on a as needed basis for temperature greater than 100.5 F. (3) Carcinoma of left breast metastatic to bone Is this a current diagnosis for this admission?: Yes Plan: Dr. Ruby is consulted for continued management of this patient's breast cancer and associated problems. (4) Pleural effusion, left Is this a current diagnosis for this admission?: Yes Plan: Dr. Ruby's consultation regarding treatment of this left pleural effusion will be appreciated. The effusion may be related to her pneumonia but most likely, since she had a previous effusion related to her cancer, this effusion will also be related to her neoplasm. (5) Pain, neoplasm-related Is this a current diagnosis for this admission?: Yes Plan: Patient will be continued on her current pain regimen for control of her neoplasm related pain. Additional pain management will be provided in the form of morphine sulfate 2 to 4 mg IV every 2 hours on a as needed basis using a sliding scale for breakthrough pain. - Time Time Spent with patient: 25-34 minutes Medications reviewed and adjusted accordingly: Yes Anticipated discharge: Home - Inpatient Certification Based on my medical assessment, after consideration of the patient's comorbidities, presenting symptoms, or acuity I expect that the services needed warrant INPATIENT care.: Yes I certify that my determination is in accordance with my understanding of Medicare's requirements for reasonable and necessary INPATIENT services [42 CFR 412.3e].: Yes Medical Necessity: Significant Comorbidiites Make Outpatient Treatment Too Risky, Need Close Monitoring Due to Risk of Patient Decompensation, Need For Continuous Telemetry Monitoring, Need for IV Antibiotics, Risk of Complication if Not Cared For in Hospital
[2019-05-19] MEDS: MORPHINE SULFATE 10 MG/ML INJ IV PRN ×3 (06:12→20:05)
[2019-05-19] MEDS: RINGERS SOLUTION,LACTATED 1,000 ML IV PRN ×3 (06:15→20:02)
--- NOTE | 2019-05-19 08:04 | EKG REPORT ---
SEVERITY:- ABNORMAL ECG - SINUS TACHYCARDIA NONSPECIFIC T ABNORMALITIES, LATERAL LEADS : Confirmed by: Sam Gupta MD 19-May-2019 08:03:16
[2019-05-19] MEDS: LEVALBUTEROL HCL NEB 0.63 MG/3 ML AMPUL NEB PRN (08:28)
[2019-05-19] MEDS: ACETYLCYSTEINE 20% SOLN 800 MG/4 ML VIAL.NEB NEB SCH ×2 (08:28→20:15)
[2019-05-19] MEDS: FAMOTIDINE 20 MG TABLET PO SCH ×2 (09:20→22:27)
[2019-05-19] MEDS: GUAIFENESIN 600 MG TABLET.SA PO SCH ×2 (09:26→22:27)
[2019-05-19] MEDS ORDERED: MORPHINE SULFATE SR 15 MG TABLET PO SCH (10:00)
[2019-05-19] MEDS ORDERED: (PENDING PHARMACY ID) (Morphine Sulfate [Morphabond Er] 15 MG) PO SCH (10:00)
[2019-05-19] MEDS: MORPHINE SULFATE SR 15 MG TABLET PO SCH ×2 (10:01→22:26)
--- NOTE | 2019-05-19 10:05 | PDOC PROGRESS REPORT ---
Subjective Progress Note for:: 05/19/19 Subjective:: 44 year old female who presented to the emergency room with a 3 day history of fever. Patient states that she developed a subjective fever Thursday and has gradually noticed worsening of her febrile associated symptoms of chills, malaise, fatigue, rapid heart palpitations and exertional dyspnea. She gives additional history that she is currently being treated with chemotherapy for metastatic breast cancer and recently was found to have a deep venous thrombosis in her left lower extremity. She denies prior similar episodes and has not identified any other aggravating or ameliorating factors for her fever. EMS found her to have an elevated temperature of 101.1 F and administered 975 mg of acetaminophen prior to the patient's arrival. In the ER the patient was noted to be tachycardic in the 120s and was found to have an elevated white blood count of 11,300. Her serum lactate was normal and her chest x-ray revealed a left-sided lobar pneumonia and a large left pleural effusion. With these findings antibiotic therapy was initiated and patient was admitted to the hospital for further evaluation and treatment. 05/[id number]-old female with history of metastatic breast cancer metastasis to the liver bone and liver admitted for left-sided pneumonia most likely community-acquired pneumonia she is become hypotensive this morning repeat lactic acid level is 2.5 receiving Ringer lactate at 167 cc/h WBC count is 11,300 she is receiving chemotherapy LFTs are elevated most likely secondary to meds plan is to move her to [facility] for close management. Reason For Visit: PNEUMONIA, LEFT PLEURAL EFFUSION Physical Exam Vital Signs: Temp Pulse Resp BP Pulse Ox 98.2 F 121 H 22 H 115/74 91 L 05/19/19 09:27 05/19/19 09:27 05/19/19 09:27 05/19/19 09:27 05/19/19 09:27 Intake & Output 05/18/19 05/19/19 05/20/19 06:59 06:59 06:59 Intake Total 1050 1000 Balance 1050 1000 Weight 46.6 kg General appearance: PRESENT: no acute distress, cooperative, other - And is in moderate distress Head exam: PRESENT: atraumatic Eye exam: PRESENT: PERRLA Mouth exam: PRESENT: moist, tongue midline Teeth exam: PRESENT: poor dentation Neck exam: ABSENT: carotid bruit, JVD, lymphadenopathy, thyromegaly Respiratory exam: PRESENT: clear to auscultation andreina. ABSENT: rales, rhonchi, wheezes Cardiovascular exam: PRESENT: RRR. ABSENT: diastolic murmur, rubs, systolic murmur GI/Abdominal exam: PRESENT: normal bowel sounds, soft. ABSENT: distended, guarding, mass, organolmegaly, rebound, tenderness Rectal exam: PRESENT: deferred Extremities exam: PRESENT: full ROM. ABSENT: calf tenderness, clubbing, pedal edema Neurological exam: PRESENT: alert, awake, oriented to person, oriented to place, oriented to time, oriented to situation, CN II-XII grossly intact. ABSENT: motor sensory deficit Psychiatric exam: PRESENT: appropriate affect, normal mood. ABSENT: homicidal ideation, suicidal ideation Results Laboratory Results: 05/19/19 01:30 05/19/19 01:30 05/19/19 05/19/19 05/19/19 01:30 01:30 01:30 WBC 11.3 H RBC 3.31 L Hgb 10.5 L Hct 31.9 L MCV 96 MCH 31.6 MCHC 32.7 RDW 17.0 H Plt Count 229 Seg Neutrophils % Not Reportable Lymphocytes % Not Reportable Monocytes % Not Reportable Eosinophils % Not Reportable Basophils % Not Reportable Absolute Neutrophils Not Reportable Absolute Lymphocytes Not Reportable Absolute Monocytes Not Reportable Absolute Eosinophils Not Reportable Absolute Basophils Not Reportable VBG pH VBG pCO2 VBG HCO3 VBG Base Excess Sodium 131.9 L Potassium 3.8 Chloride 101 Carbon Dioxide 23 Anion Gap 8 BUN 10 Creatinine 0.44 L Est GFR ( Amer) > 60 Est GFR (Non-Af Amer) > 60 Glucose 152 H Lactic Acid 1.9 Calcium 7.6 L Total Bilirubin 0.9 AST 170 H Alkaline Phosphatase 1186 H Total Protein 6.0 L Albumin 2.9 L Free T3 pg/mL Serum HCG, Qual Urine Color Urine Appearance Urine pH Ur Specific Cord Urine Protein Urine Glucose (UA) Urine Ketones Urine Blood Urine Nitrite Ur Leukocyte Esterase Urine WBC (Auto) Urine RBC (Auto) 05/19/19 05/19/19 05/19/19 01:30 01:30 02:23 WBC RBC Hgb Hct MCV MCH MCHC RDW Plt Count Seg Neutrophils % Lymphocytes % Monocytes % Eosinophils % Basophils % Absolute Neutrophils Absolute Lymphocytes Absolute Monocytes Absolute Eosinophils Absolute Basophils VBG pH 7.42 VBG pCO2 37.2 VBG HCO3 23.5 VBG Base Excess -0.7 Sodium Potassium Chloride Carbon Dioxide Anion Gap BUN Creatinine Est GFR ( Amer) Est GFR (Non-Af Amer) Glucose Lactic Acid Calcium Total Bilirubin AST Alkaline Phosphatase Total Protein Albumin Free T3 pg/mL Serum HCG, Qual NEGATIVE Urine Color YELLOW Urine Appearance CLEAR Urine pH 7.0 Ur Specific Cord 1.013 Urine Protein NEGATIVE Urine Glucose (UA) NEGATIVE Urine Ketones NEGATIVE Urine Blood SMALL H Urine Nitrite NEGATIVE Ur Leukocyte Esterase NEGATIVE Urine WBC (Auto) 4 Urine RBC (Auto) 2 05/19/19 05/19/19 06:30 06:30 WBC RBC Hgb Hct MCV MCH MCHC RDW Plt Count Seg Neutrophils % Lymphocytes % Monocytes % Eosinophils % Basophils % Absolute Neutrophils Absolute Lymphocytes Absolute Monocytes Absolute Eosinophils Absolute Basophils VBG pH VBG pCO2 VBG HCO3 VBG Base Excess Sodium Potassium Chloride Carbon Dioxide Anion Gap BUN Creatinine Est GFR ( Amer) Est GFR (Non-Af Amer) Glucose Lactic Acid 2.5 H Calcium Total Bilirubin AST Alkaline Phosphatase Total Protein Albumin Free T3 pg/mL 3.69 Serum HCG, Qual Urine Color Urine Appearance Urine pH Ur Specific Cord Urine Protein Urine Glucose (UA) Urine Ketones Urine Blood Urine Nitrite Ur Leukocyte Esterase Urine WBC (Auto) Urine RBC (Auto) Impressions: Chest X-Ray 05/19/19 01:17 IMPRESSION: Large left basilar presumed pneumonia with pleural effusions. Assessment and Plan - Diagnosis (1) Community acquired pneumonia of left lung Qualifiers: Lung location: unspecified part of lung Qualified Code(s): J18.9 - Pneumonia, unspecified organism Is this a current diagnosis for this admission?: Yes Plan: Patient will be treated with IV Zithromax and IV Rocephin, as well as IV fluids. Daily CBCs, metabolic profiles and magnesium levels will be followed. Periodic chest x-rays will be used as necessary to follow the course of her disease process. 05/19/[id number]-copg-old female admitted for minute acquired pneumonia left-sided large pneumonia admission lactic acid is 1.9 despite with IV fluids lactic acid level went up to 2.5. She become hypotensive last night. In my opinion she is unstable to stay in the fifth floor and upgrading her to IMCU. Presently on IV Rocephin and Zithromax. Cultures are pending. (2) Carcinoma of left breast metastatic to bone Is this a current diagnosis for this admission?: Yes Plan: Dr. Ruby is consulted for continued management of this patient's breast cancer and associated problems. 05/[id number]-bede-old female admitted with community-acquired pneumonia has carcinoma of the left breast metastasis to the bone liver and to the lungs. Patient x-rays indicates large left pleural effusion and pneumonia. (3) Pleural effusion, left Is this a current diagnosis for this admission?: Yes Plan: Dr. Ruby's consultation regarding treatment of this left pleural effusion will be appreciated. The effusion may be related to her pneumonia but most likely, since she had a previous effusion related to her cancer, this effusion will also be related to her neoplasm. 05/19/2019-patient has a left pleural effusion it may be related to pneumonia or it may be metastasis from the breast cancer causing pleural effusion. Patient is presently on chemotherapy. (4) Tachycardia Is this a current diagnosis for this admission?: Yes Plan: 05/19/2019-patient heart rate is 111. Tachycardia most likely secondary to underlying sepsis. (5) Sepsis Is this a current diagnosis for this admission?: Yes Plan: 05/19/2019-patient's blood pressure this morning is 102/67, WBC count is 11,300, lactic acid is 2.5. Cultures are pending. Heart rate is 111. Meeting the criteria for sepsis and chest x-ray showing large left-sided pneumonia. - Time Time Spent with patient: 25-34 minutes Medications reviewed and adjusted accordingly: Yes Anticipated discharge: Home
[2019-05-19] MEDS ORDERED: POTASSIUM CHLORIDE 10 MEQ CAPSULE.ER PO SCH (11:00)
--- NOTE | 2019-05-19 13:26 | PDOC CONSULTATION ---
Consultation Consult Date: 05/19/19 Provider Consulted: NIRAV RUBY Consult reason:: Patient with known metastatic cancer on active chemotherapy. History of Present Illness Admission Date/PCP: 05/19/19 03:13 NIRAV RUBY MD History of Present Illness: SERAFIN MENDIOLA is a 44 year old female who was diagnosed with stage IV breast cancer in 2008. She has been on multiple therapies, but most recently was started on gemcitabine and received her first dose on 05/17/2019. She presented to the ED early this morning with a fever. Her breathing has been worse and she is also complaining of back pain. She has been started on antibiotics for community acquired pneumonia and has a large pleural effusion. Past Medical History Cardiac Medical History: Reports: DVT Denies: Coronary Artery Disease, Hypertension Pulmonary Medical History: Denies: Asthma, Chronic Obstructive Pulmonary Disease (COPD), Pneumonia EENT Medical History: Denies: Cataracts, Nose - Allergic rhinitis Neurological Medical History: Denies: Hemorrhagic CVA, Ischemic CVA, Seizures Endocrine Medical History: Denies: Diabetes Mellitus Type 1, Diabetes Mellitus Type 2, Hyperthyroidism, Hypothyroidism, Obesity Renal/ Medical History: Denies: Chronic Kidney Disease Malignancy Medical History: Reports: Breast Cancer - With metastasis to lung liver and bone, Lung Cancer GI Medical History: Denies: Cirrhosis, Crohn's Disease, Hepatitis, Ulcerative Colitis Musculoskeltal Medical History: Denies: Arthritis, Gout Skin Medical History: Denies: Eczema, Psoriasis Psychiatric Medical History: Denies: Alcohol Dependency, Substance Abuse, Tobacco Dependency Traumatic Medical History: Reports: None Hematology: Reports: Anemia - Chronic with chemotherapy Denies: Bleeding Tendencies Infectious Medical History: Reports: None Past Surgical History Past Surgical History: Reports: Mastectomy - Bilateral with reconstruction, Other - Sternal excision Social History Lives with: Spouse/Significant other Smoking Status: Never Smoker Last Time Smoked: 27 years ago Frequency of Alcohol Use: None Hx Recreational Drug Use: No Drugs: None Hx Prescription Drug Abuse: No - Advance Directive Resuscitation Status: Full Code Family History Family History: Malignancy - MOTHER - BREAST CA Parental Family History Reviewed: Yes - Mother breast cancer. Children Family History Reviewed: No Sibling(s) Family History Reviewed.: Yes Medication/Allergy Home Medications: Morphine Sulfate [Morphine Ir 15 mg Tablet] 15 mg PO Q6HP PRN #12 tablet 03/08/19 Morphine Sulfate [Morphabond ER] 15 mg PO Q12 05/19/19 Potassium Chloride 20 meq PO DAILY 05/19/19 Rivaroxaban [Xarelto] 20 mg PO DAILY 05/19/19 Allergies/Adverse Reactions: Antihistamines - Alkylamine Adverse Reaction (Verified 03/08/19 18:40) Tachycardia contrast dye Allergy (Uncoded 03/08/19 18:40) Anaphylaxis Review of Systems Constitutional: PRESENT: fever(s), weakness. ABSENT: headache(s) Eyes: ABSENT: visual disturbances Ears: ABSENT: hearing changes Nose, Mouth, and Throat: ABSENT: sore throat Cardiovascular: ABSENT: chest pain Respiratory: PRESENT: dyspnea Gastrointestinal: ABSENT: constipation, nausea Genitourinary: ABSENT: dysuria Musculoskeletal: PRESENT: back pain Integumentary: ABSENT: rash Neurological: PRESENT: weakness Physical Exam Vital Signs: Temp Pulse Resp BP Pulse Ox 98.2 F 121 H 22 H 115/74 91 L 05/19/19 09:27 05/19/19 09:27 05/19/19 09:27 05/19/19 09:27 05/19/19 09:27 Intake & Output 05/18/19 05/19/19 05/20/19 06:59 06:59 06:59 Intake Total 1050 1000 Output Total 200 Balance 1050 800 Weight 46.6 kg General appearance: PRESENT: well-developed, well-nourished Exam: 44 year old female. Head exam: PRESENT: atraumatic, normocephalic Mouth exam: PRESENT: moist Neck exam: ABSENT: lymphadenopathy, tenderness Respiratory exam: PRESENT: decreased breath sounds - Left lung 1/[address] way up[address] unlabored Cardiovascular exam: PRESENT: RRR, tachycardia GI/Abdominal exam: PRESENT: soft. ABSENT: tenderness Musculoskeletal exam: PRESENT: normal inspection Neurological exam: PRESENT: alert, awake Psychiatric exam: PRESENT: appropriate affect Skin exam: PRESENT: normal color Results Laboratory Results: 05/19/19 01:30 05/19/19 01:30 05/19/19 05/19/19 05/19/19 01:30 01:30 01:30 WBC 11.3 H RBC 3.31 L Hgb 10.5 L Hct 31.9 L MCV 96 MCH 31.6 MCHC 32.7 RDW 17.0 H Plt Count 229 Seg Neutrophils % Not Reportable Lymphocytes % Not Reportable Monocytes % Not Reportable Eosinophils % Not Reportable Basophils % Not Reportable Absolute Neutrophils Not Reportable Absolute Lymphocytes Not Reportable Absolute Monocytes Not Reportable Absolute Eosinophils Not Reportable Absolute Basophils Not Reportable VBG pH VBG pCO2 VBG HCO3 VBG Base Excess Sodium 131.9 L Potassium 3.8 Chloride 101 Carbon Dioxide 23 Anion Gap 8 BUN 10 Creatinine 0.44 L Est GFR ( Amer) > 60 Est GFR (Non-Af Amer) > 60 Glucose 152 H Lactic Acid 1.9 Calcium 7.6 L Total Bilirubin 0.9 AST 170 H Alkaline Phosphatase 1186 H Total Protein 6.0 L Albumin 2.9 L Free T3 pg/mL Serum HCG, Qual Urine Color Urine Appearance Urine pH Ur Specific Constantia Urine Protein Urine Glucose (UA) Urine Ketones Urine Blood Urine Nitrite Ur Leukocyte Esterase Urine WBC (Auto) Urine RBC (Auto) 05/19/19 05/19/19 05/19/19 01:30 01:30 02:23 WBC RBC Hgb Hct MCV MCH MCHC RDW Plt Count Seg Neutrophils % Lymphocytes % Monocytes % Eosinophils % Basophils % Absolute Neutrophils Absolute Lymphocytes Absolute Monocytes Absolute Eosinophils Absolute Basophils VBG pH 7.42 VBG pCO2 37.2 VBG HCO3 23.5 VBG Base Excess -0.7 Sodium Potassium Chloride Carbon Dioxide Anion Gap BUN Creatinine Est GFR ( Amer) Est GFR (Non-Af Amer) Glucose Lactic Acid Calcium Total Bilirubin AST Alkaline Phosphatase Total Protein Albumin Free T3 pg/mL Serum HCG, Qual NEGATIVE Urine Color YELLOW Urine Appearance CLEAR Urine pH 7.0 Ur Specific [place]ia 1.013 Urine Protein NEGATIVE Urine Glucose (UA) NEGATIVE Urine Ketones NEGATIVE Urine Blood SMALL H Urine Nitrite NEGATIVE Ur Leukocyte Esterase NEGATIVE Urine WBC (Auto) 4 Urine RBC (Auto) 2 05/19/19 05/19/19 05/19/19 06:30 06:30 11:18 WBC RBC Hgb Hct MCV MCH MCHC RDW Plt Count Seg Neutrophils % Lymphocytes % Monocytes % Eosinophils % Basophils % Absolute Neutrophils Absolute Lymphocytes Absolute Monocytes Absolute Eosinophils Absolute Basophils VBG pH VBG pCO2 VBG HCO3 VBG Base Excess Sodium Potassium Chloride Carbon Dioxide Anion Gap BUN Creatinine Est GFR ( Amer) Est GFR (Non-Af Amer) Glucose Lactic Acid 2.5 H 1.1 Calcium Total Bilirubin AST Alkaline Phosphatase Total Protein Albumin Free T3 pg/mL 3.69 Serum HCG, Qual Urine Color Urine Appearance Urine pH Ur Specific Constantia Urine Protein Urine Glucose (UA) Urine Ketones Urine Blood Urine Nitrite Ur Leukocyte Esterase Urine WBC (Auto) Urine RBC (Auto) Impressions: Chest X-Ray 05/19/19 01:17 IMPRESSION: Large left basilar presumed pneumonia with pleural effusions. Status: Image reviewed by me Assessment & Plan - Diagnosis (1) Carcinoma of left breast metastatic to bone Is this a current diagnosis for this admission?: Yes Plan: She received cycle #1 Gemcitabine 2 days ago. This may cause some pancytopenia over the next 7 days. Will monitor closely. No further treatment planned for at least 2 weeks. (2) Community acquired pneumonia of left lung Qualifiers: Lung location: unspecified part of lung Qualified Code(s): J18.9 - Pneumonia, unspecified organism Is this a current diagnosis for this admission?: Yes Plan: Agree with antibiotics. May consider thoracentesis. I have asked for Xarelto to be placed on hold until after thoracentesis, but will need to restart this Thursday evening. Hopefully, thoracentesis will not be needed, but if patient's breathing continues to decline, then will go ahead. - Plan Summary Plan Summary: Patient was discussed with Dr. Silva. Dr. Ruby will return tomorrow morning. Please call with any concerns. Thank you for this consultation.
[2019-05-19] MEDS: RIVAROXABAN 10 MG TABLET PO SCH (16:16)
[2019-05-19] MEDS ORDERED: CEFTRIAXONE 1 GM/D5W RTU 1 GM/50 ML RTUPB IV SCH (22:00)
[2019-05-19] MEDS: AZITHROMYCIN 500 MG in DEXTROSE 5%-WATER 250 ML IV SCH (22:25)
[2019-05-19] MEDS: CEFTRIAXONE SODIUM 1,000 MG in DEXTROSE 5%-WATER 50 ML IV SCH (22:25)
[2019-05-20] MEDS: MORPHINE SULFATE 10 MG/ML INJ IV PRN ×3 (02:25→20:07)
[2019-05-20] MEDS: RINGERS SOLUTION,LACTATED 1,000 ML IV PRN (04:20)
[2019-05-20] MEDS ORDERED: MORPHINE SULFATE IR 15 MG TABLET PO PRN (08:26)
--- NOTE | 2019-05-20 08:28 | PDOC PROGRESS REPORT ---
Subjective Subjective:: Unfortunately left antecubital IV site infiltrated, but it was only noticed about 2 hours after, so she does have swelling of that arm that is worsened. She does have known lymphedema however. She still having a lot of cough and congestion and shortness of breath. She also has back pain. She is in tears this morning because she has not had IV pain medication for a while because the site infiltrated. Yesterday Dr. LENNON had a long conversation with radiology, thoracentesis is feasible, today I had a long discussion with patient and family at bedside, plan for PICC line placement as well as thoracentesis today. I placed patient on oral immediate release morphine, she was already on long-acting morphine. Once we have PICC line we can restart IV morphine. Reason For Visit: PNEUMONIA, LEFT PLEURAL EFFUSION Physical Exam Vital Signs: Temp Pulse Resp BP Pulse Ox 98.4 F 128 H 18 105/67 96 05/19/19 15:49 05/20/19 02:00 05/19/19 15:49 05/19/19 15:49 05/19/19 15:49 Intake & Output 05/19/19 05/20/19 05/21/19 06:59 06:59 06:59 Intake Total 1050 4300 Output Total 1200 Balance 1050 3100 Weight 46.6 kg 46.7 kg General appearance: PRESENT: no acute distress, well-developed, well-nourished Head exam: PRESENT: atraumatic, normocephalic Eye exam: PRESENT: conjunctiva pink, EOMI, PERRLA. ABSENT: scleral icterus Ear exam: PRESENT: normal external ear exam Mouth exam: PRESENT: moist, tongue midline Neck exam: ABSENT: carotid bruit, JVD, lymphadenopathy, thyromegaly Respiratory exam: PRESENT: clear to auscultation andreina. ABSENT: rales, rhonchi, wheezes Cardiovascular exam: PRESENT: RRR. ABSENT: diastolic murmur, rubs, systolic murmur Pulses: PRESENT: normal dorsalis pedis pul Vascular exam: PRESENT: normal capillary refill GI/Abdominal exam: PRESENT: normal bowel sounds, soft. ABSENT: distended, guarding, mass, organolmegaly, rebound, tenderness Rectal exam: PRESENT: deferred Extremities exam: PRESENT: full ROM. ABSENT: calf tenderness, clubbing, pedal edema Neurological exam: PRESENT: alert, awake, oriented to person, oriented to place, oriented to time, oriented to situation, CN II-XII grossly intact. ABSENT: motor sensory deficit Psychiatric exam: PRESENT: appropriate affect, normal mood. ABSENT: homicidal ideation, suicidal ideation Skin exam: PRESENT: dry, intact, warm. ABSENT: cyanosis, rash Results Laboratory Results: 05/19/19 01:30 05/19/19 01:30 05/19/19 05/19/19 11:18 16:33 Lactic Acid 1.1 1.3 Impressions: Chest X-Ray 05/19/19 01:17 IMPRESSION: Large left basilar presumed pneumonia with pleural effusions. Assessment & Plan - Diagnosis (1) Pneumonia Qualifiers: Pneumonia type: due to unspecified organism Laterality: left Lung location: lower lobe of lung Qualified Code(s): J18.1 - Lobar pneumonia, unspecified organism Is this a current diagnosis for this admission?: Yes Plan: Continue with IV antibiotics once we have line back. We will get PICC line placed soon (2) Sepsis Qualifiers: Sepsis type: sepsis due to unspecified organism Sepsis acute organ dysfunction status: with acute organ dysfunction Severe sepsis acute organ dysfunction type: acute renal failure Acute renal failure type: with acute renal cortical necrosis Severe sepsis shock status: with septic shock Qualified Code(s): A41.9 - Sepsis, unspecified organism; R65.21 - Severe sepsis with septic shock; N17.1 - Acute kidney failure with acute cortical necrosis Is this a current diagnosis for this admission?: Yes Plan: Previously with septic shock in the ICU, now doing better, patient needs PICC line to continue with IV antibiotics. (3) Carcinoma of left breast metastatic to bone Is this a current diagnosis for this admission?: Yes Plan: Patient started on Gemzar, plan to continue treatment as an outpatient. (4) Pain, neoplasm-related Is this a current diagnosis for this admission?: Yes Plan: Add immediate release morphine to regimen, but patient really needs still IV medication and we need to optimize pain control. (5) Pleural effusion, left Is this a current diagnosis for this admission?: Yes Plan: Highly likely to be malignant but could also be the source of infection, we will plan for diagnostic and therapeutic your centesis, sent for cultures and cytology. - Time Time Spent with patient: 35 or more minutes
[2019-05-20] MEDS: ACETYLCYSTEINE 20% SOLN 800 MG/4 ML VIAL.NEB NEB SCH ×2 (08:55→20:19)
[2019-05-20] MEDS ORDERED: MORPHINE SULFATE IR 15 MG TABLET PO ONE (09:00)
[2019-05-20] MEDS: GUAIFENESIN 600 MG TABLET.SA PO SCH ×2 (09:26→22:06)
[2019-05-20] MEDS: MORPHINE SULFATE SR 15 MG TABLET PO SCH ×3 (09:26→22:05)
[2019-05-20] MEDS: POTASSIUM CHLORIDE 20 MEQ PACKET PO SCH (09:27)
[2019-05-20] MEDS: FAMOTIDINE 20 MG TABLET PO SCH ×2 (09:27→22:06)
--- NOTE | 2019-05-20 11:25 | RADIOLOGY REPORT (SQ) ---
EXAM DESCRIPTION: PICC INSERTION; FLUORO/CV PLACEMENT; U/S GUIDE FOR VASCULAR ACCESS COMPLETED DATE/TIME: 05/20/2019 11:00 am REASON FOR STUDY: Hard stick; IV ACCESS COMPARISON: None. FLUOROSCOPY TIME: 0.16 minutes 2 images saved to PACS. TECHNIQUE: Fluoroscopic and ultrasound guided PICC placement. LIMITATIONS: None. PROCEDURE: After written consent and assessment were obtained, the patient was brought into the fluo roscopy room and placed supine on the table. Ultrasound evaluation of potential access sites were per formed. After successfully identifying a patent left basilic vein, the left arm was prepped and drape d in a sterile fashion along with the ultrasound probe. The entry site was anesthetized with 1% lidoc funmilayo. A 21 gauge 7 cm needle was advanced through the skin and into the basilic vein under live ultra sound guidance. An ultrasound image was saved to PACS confirming access site. A .018 guide wire was then inserted through the needle and into the venous system. The needle was then removed and an 11 b lade scalpel was used to make a 1cm skin incision. A 5 fr peel-away sheath was advanced over the wir e and into the venous system. A measurement was then made using the existing wire and live fluoroscop ic guidance. The wire was then removed and trimmed. The PICC was advanced through the peel-away sheat h and into the venous system. The peel-away sheath was removed and the catheter was adhered to the pa tients arm with a stat lock. The catheter was then aspirated and flushed and a sterile bandage was pl aced over the access site. A fluoroscopic spot image was saved to PACS confirming the catheter tip w ithin the cavoatrial junction. IMPRESSION: SUCCESSFUL PLACEMENT OF A 5 FR DUAL LUMEN 32 CM PICC IN THE LEFT BASILIC VEIN. COMMENT: Patient medication list reviewed: Yes- Quality ID# [id number]:Eligible professional attests to doc umenting in the medical record they obtained, updated, or reviewed the patient's current medications. . Quality ID 145: Final reports for procedures using fluoroscopy that document radiation exposure alec rebecca, or exposure time and number of fluorographic images (if radiation exposure indices are not avail able) Quality ID #76: The patient was prepped and draped using maximum sterile barrier technique including cap, mask, sterile gown, sterile gloves, a large sterile sheet, hand hygiene, and 2% Chlorhexidine fo r cutaneous antisepsis. When ultrasound is used, sterile ultrasound techniques are followed requiring sterile gel and sterile probes. TECHNICAL DOCUMENTATION: JOB ID: [id number] [employer]- All Rights Reserved rev-02/26 Reading location - IP/workstation name: [email or web address]
--- NOTE | 2019-05-20 11:54 | RADIOLOGY REPORT (SQ) ---
EXAM DESCRIPTION: CHEST 2 VIEWS COMPLETED DATE/TIME: 05/20/2019 11:43 am REASON FOR STUDY: Pneumothorax post thoracentesis COMPARISON: None. EXAM PARAMETERS: NUMBER OF VIEWS: two views TECHNIQUE: Digital Frontal and Lateral radiographic views of the chest acquired. RADIATION DOSE: NA LIMITATIONS: none FINDINGS: LUNGS AND PLEURA: Decreased size of the loculated left-sided pleural effusion with mildly improved left basilar aeration. New small bore posterior approach left-sided pigtail catheter. No a ppreciable pneumothorax. Unchanged blunting of the right costophrenic angle. MEDIASTINUM AND HILAR STRUCTURES: Stable. HEART AND VASCULAR STRUCTURES: Stable. Partially obscured. BONES: No new findings. HARDWARE: New left-sided small bore chest tube. New left approach PICC with catheter tip at cavoatri al junction. Right axillary surgical clips. OTHER: No other significant finding. IMPRESSION: Improved left basilar aeration with decreased size of the loculated left-sided pleural effusion. New small bore left-sided chest tube without appreciable pneumothorax. Left approach PICC tip at cavoatrial junction. TECHNICAL DOCUMENTATION: JOB ID: [id number] [employer]- All Rights Reserved Reading location - IP/workstation name: [email or web address]
--- NOTE | 2019-05-20 12:09 | RADIOLOGY REPORT (SQ) ---
EXAM DESCRIPTION: U/S THORACENTESIS WITH IMAGING COMPLETED DATE/TIME: 05/20/2019 11:51 am REASON FOR STUDY: culture cell count - left side COMPARISON: Same day radiograph LIMITATIONS: None. PROCEDURE: Procedure, risks, benefit, and alternative explained to patient who then gave written con sent. The posterior left chest wall was marked using ultrasound guidance. A time-out was called for correct marking verification. Chest prepped and draped using sterile technique. Local anesthesia ac hieved using 10 ml of 1% lidocaine injection. A 6fr Safe-T- Centesis set was introduced into the lef t pleural space. Fluid was aspirated. After some fluid was aspirated a was noted within the system most compatible with a pneumothorax. Decision was made to place a chest tube. A 035 wire was advanc ed in the pre-existing catheter and the catheter removed. The tract was dilated to 10 [place]. A 10 [place] pigtail catheter was advanced over the wire. The wire inner stiffener were removed and the pi gtail formed in a standard fashion. The catheter was hooked to Pleur-Evac device and secured to the skin. A sterile dressing was applied. Completion chest x-rays were obtained. Images acquired during the procedure were stored on PACS. FINDINGS: ENTRY SITE: posterior left chest. FLUID VOLUME: 260 cc FLUID ANALYSIS: Clear yellow OTHER: Fluid sent to the lab for testing. IMPRESSION: Ultrasound guided left-sided thoracentesis resulting in a pneumothorax. A 10 [place]an sma ll bore left-sided chest tube was placed. COMMENT: Patient medication list reviewed: Yes- Quality ID# [id number]:Eligible professional attests to doc umenting in the medical record they obtained, updated, or reviewed the patient's current medications. TECHNICAL DOCUMENTATION: JOB ID: [id number] [employer]- All Rights Reserved Reading location - IP/workstation name: [email or web address]
[2019-05-20] MEDS ORDERED: MORPHINE SULFATE 10 MG/ML INJ IV PRN ×2 (12:10→12:11)
--- NOTE | 2019-05-20 15:09 | Progress Note Acknowledgement ---
Progress Note Acknowledgement Progess Note Acknowledgement: I, the undersigned member of the medical staff with appropriate privileges and with supervisory authority over [ DonDay PAC ], a dependent practice allied health professional, acknowledge that I have reviewed the progress notes entered on this patient, and in my professional judgment believe that the assessment made and/or any care evidenced was appropriate
[2019-05-20] MEDS: RIVAROXABAN 10 MG TABLET PO SCH (17:39)
[2019-05-20] MEDS: LEVALBUTEROL HCL NEB 0.63 MG/3 ML AMPUL NEB PRN (20:20)
[2019-05-20] MEDS: CEFTRIAXONE SODIUM 1,000 MG in DEXTROSE 5%-WATER 50 ML IV SCH (22:18)
[2019-05-20] MEDS: AZITHROMYCIN 500 MG in DEXTROSE 5%-WATER 250 ML IV SCH (22:19)
[2019-05-21] MEDS: MORPHINE SULFATE 10 MG/ML INJ IV PRN ×3 (00:22→08:25)
[2019-05-21 06:29] LABS: HEMATOCRIT 26.1 % (36.0-47.0); HEMOGLOBIN 8.9 g/dL (12.0-15.5); MEAN CORPUSCULAR HEMOGLOBIN 32.2 pg (27.0-33.4); MEAN CORPUSCULAR HGB CONC 34.1 g/dL (32.0-36.0); MEAN CORPUSCULAR VOLUME 94 fl (80-97); PLATELET COUNT 183 10^3/uL (150-450); RED BLOOD COUNT 2.77 10^6/uL (3.72-5.28); RED CELL DISTRIBUTION WIDTH 16.5 % (11.5-14.0); WHITE BLOOD COUNT 9.9 10^3/uL (4.0-10.5)
[2019-05-21 06:53] LABS: ANION GAP 6 (5-19); BLOOD UREA NITROGEN 5 mg/dL (7-20); CALCIUM 7.3 mg/dL (8.4-10.2); CARBON DIOXIDE 27 mmol/L (22-30); CHLORIDE 100 mmol/L (98-107); GLUCOSE 78 mg/dL (75-110); POTASSIUM 3.5 mmol/L (3.6-5.0)
--- NOTE | 2019-05-21 08:57 | PDOC PROGRESS REPORT ---
Subjective Progress Note for:: 05/20/19 Subjective:: 05/20/2019 patient was able to have a PICC line inserted today at 11 AM, therefore analgesics as well as antibiotics can be given by this site. Patient has no complaints Lactic acid on admission was 2.5 yesterday is down to 1.3 I will see him low at 7.6 H&H was stable at 10.5 and 31.9 vital signs are stable 105/67, temperature 98.4 O2 sat 96% on 1.5 L Patient is on day 2 of her Rocephin and Zithromax IV. She also needs to be back on her Xarelto, following her thoracentesis PICC line insertion. Reason For Visit: PNEUMONIA, LEFT PLEURAL EFFUSION Physical Exam Vital Signs: Temp Pulse Resp BP Pulse Ox 98.4 F 116 H 18 105/67 96 05/19/19 15:49 05/20/19 07:00 05/19/19 15:49 05/19/19 15:49 05/19/19 15:49 Intake & Output 05/19/19 05/20/19 05/21/19 06:59 06:59 06:59 Intake Total 1050 4300 Output Total 1200 Balance 1050 3100 Weight 46.6 kg 46.7 kg General appearance: PRESENT: no acute distress, well-developed, well-nourished, other - Sleepy Respiratory exam: PRESENT: clear to auscultation andreina. ABSENT: rales, rhonchi, wheezes Cardiovascular exam: PRESENT: RRR. ABSENT: diastolic murmur, rubs, systolic murmur Neurological exam: PRESENT: alert, awake, oriented to person, oriented to place, oriented to time, oriented to situation, CN II-XII grossly intact, other - Arouses easily. ABSENT: motor sensory deficit Psychiatric exam: PRESENT: appropriate affect, normal mood. ABSENT: homicidal ideation, suicidal ideation Results Laboratory Results: 05/19/19 01:30 05/19/19 01:30 05/19/19 16:33 Lactic Acid 1.3 05/19/19 02:23 Clean Catch Midstream Urine Culture - Final Mixed Urogenital Carito Impressions: Chest X-Ray 05/20/19 00:00 IMPRESSION: Improved left basilar aeration with decreased size of the loculated left-sided pleural effusion. New small bore left-sided chest tube without appreciable pneumothorax. Left approach PICC tip at cavoatrial junction. Guidance Fluoroscopy 05/20/19 00:00 IMPRESSION: SUCCESSFUL PLACEMENT OF A 5 FR DUAL LUMEN 32 CM PICC IN THE LEFT BASILIC VEIN. Interventional Vascular Procedure 05/20/19 00:00 IMPRESSION: SUCCESSFUL PLACEMENT OF A 5 FR DUAL LUMEN 32 CM PICC IN THE LEFT BASILIC VEIN. PICC Line Insertion 05/20/19 00:00 IMPRESSION: SUCCESSFUL PLACEMENT OF A 5 FR DUAL LUMEN 32 CM PICC IN THE LEFT BASILIC VEIN. Thoracentesis Ultrasound 05/20/19 00:00 IMPRESSION: Ultrasound guided left-sided thoracentesis resulting in a pneumothorax. A 10 [place]ian small bore left-sided chest tube was placed. 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 Ruby is consulted for continued management of this patient's breast cancer and associated problems. 05/19/[id number]-tzoc-old female admitted with community-acquired pneumonia has carcinoma of the left breast metastasis to the bone liver and to the lungs. Patient x-rays indicates large left pleural effusion and pneumonia. 05/20/2019 she is being followed by oncology. Pain being controlled by morphine IV (2) Community acquired pneumonia of left lung Qualifiers: Lung location: unspecified part of lung Qualified Code(s): J18.9 - Pneumonia, unspecified organism Is this a current diagnosis for this admission?: Yes (3) Pneumonia Qualifiers: Pneumonia type: due to unspecified organism Laterality: left Lung location: lower lobe of lung Qualified Code(s): J18.1 - Lobar pneumonia, unspecified organism Is this a current diagnosis for this admission?: Yes Plan: Eight 9-day 2 of IV Rocephin and IV Zithromax White count 11.3, lactic acid down to 1.3, patient is afebrile 98 4 (4) Sepsis Qualifiers: Sepsis type: sepsis due to unspecified organism Sepsis acute organ dysfunction status: with acute organ dysfunction Severe sepsis acute organ dysfunction type: acute renal failure Acute renal failure type: with acute renal cortical necrosis Severe sepsis shock status: with septic shock Qu alified Code(s): A41.9 - Sepsis, unspecified organism; R65.21 - Severe sepsis with septic shock; N17.1 - Acute kidney failure with acute cortical necrosis Is this a current diagnosis for this admission?: Yes Plan: 05/19/2019-patient's blood pressure this morning is 102/67, WBC count is 11,300, lactic acid is 2.5. Cultures are pending. Heart rate is 111. Meeting the criteria for sepsis and chest x-ray showing large left-sided pneumonia. 05/20/2019 CBC will be repeated today. Patient is afebrile and normotensive (5) Breast CA Qualifiers: Breast location: upper outer quadrant of breast Estrogen receptor status: positive Patient sex: female Laterality: right Qualified Code(s): C50.411 - Malignant neoplasm of upper-outer quadrant of right female breast; Z17.0 - Estrogen receptor positive status [ER+] Is this a current diagnosis for this admission?: Yes Plan: 05/20/2019 vision is being followed by oncology - Time Time Spent with patient: 25-34 minutes
--- NOTE | 2019-05-21 08:58 | RADIOLOGY REPORT (SQ) ---
EXAM DESCRIPTION: CHEST SINGLE VIEW COMPLETED DATE/TIME: 05/21/2019 8:21 am REASON FOR STUDY: CHEST TUBE COMPARISON: 05/20/2019 TECHNIQUE: Single frontal radiographic view of the chest acquired. NUMBER OF VIEWS: One view. LIMITATIONS: None. FINDINGS: LUNGS AND PLEURA: No pneumothorax. Increasing bibasilar consolidation and pleural effusio ns. MEDIASTINUM AND HILAR STRUCTURES: Stable. HEART AND VASCULAR STRUCTURES: Stable. BONES: No acute findings. HARDWARE: Left pigtail pleural drainage catheter. Left PICC line, stable. Surgical clips in both ax illae. OTHER: No other significant finding. IMPRESSION: Increasing bibasilar consolidation and pleural effusions. TECHNICAL DOCUMENTATION: JOB ID: [id number] [employer]- All Rights Reserved Reading location - IP/workstation name: [email or web address]
--- NOTE | 2019-05-21 10:25 | PDOC PROGRESS REPORT ---
Subjective Progress Note for:: 05/21/19 Subjective:: Yesterday patient went for both thoracentesis and PICC line placement, unfortunately thoracentesis resulted in pneumothorax, only about 250 cc of yellow clear liquid came out, chest tube was placed now, being managed by IR and hospitalist team. Today she is having left hip pain as well as left rib pain, we discussed that is probably related to her bone metastasis but in some part it may be related to constipation that she is having. She has not had a bowel movement in 1 week. We discussed giving enema today as well as increasing her MSSR. Reason For Visit: PNEUMONIA, LEFT PLEURAL EFFUSION Physical Exam Vital Signs: Temp Pulse Resp BP Pulse Ox 98.6 F 77 18 95/66 L 95 05/21/19 08:26 05/21/19 08:26 05/21/19 08:26 05/21/19 08:26 05/21/19 08:26 Intake & Output 05/20/19 05/21/19 05/22/19 06:59 06:59 06:59 Intake Total 4300 660 Output Total 1200 540 Balance 3100 120 Weight 46.7 kg General appearance: PRESENT: no acute distress, well-developed, well-nourished Head exam: PRESENT: atraumatic, normocephalic Eye exam: PRESENT: conjunctiva pink, EOMI, PERRLA. ABSENT: scleral icterus Ear exam: PRESENT: normal external ear exam Mouth exam: PRESENT: moist, tongue midline Neck exam: ABSENT: carotid bruit, JVD, lymphadenopathy, thyromegaly Respiratory exam: PRESENT: clear to auscultation andreina. ABSENT: rales, rhonchi, wheezes Cardiovascular exam: PRESENT: RRR. ABSENT: diastolic murmur, rubs, systolic murmur Pulses: PRESENT: normal dorsalis pedis pul Vascular exam: PRESENT: normal capillary refill GI/Abdominal exam: PRESENT: normal bowel sounds, soft. ABSENT: distended, guarding, mass, organolmegaly, rebound, tenderness Rectal exam: PRESENT: deferred Extremities exam: PRESENT: full ROM. ABSENT: calf tenderness, clubbing, pedal edema Neurological exam: PRESENT: alert, awake, oriented to person, oriented to place, oriented to time, oriented to situation, CN II-XII grossly intact. ABSENT: motor sensory deficit Psychiatric exam: PRESENT: appropriate affect, normal mood. ABSENT: homicidal ideation, suicidal ideation Skin exam: PRESENT: dry, intact, warm. ABSENT: cyanosis, rash Results Laboratory Results: 05/21/19 05:45 05/21/19 05:45 05/21/19 05/21/19 05:45 05:45 WBC 9.9 RBC 2.77 L Hgb 8.9 L Hct 26.1 L MCV 94 MCH 32.2 MCHC 34.1 RDW 16.5 H Plt Count 183 Sodium 132.6 L Potassium 3.5 L Chloride 100 Carbon Dioxide 27 Anion Gap 6 BUN 5 L Creatinine 0.29 L Est GFR ( Amer) > 60 Est GFR (Non-Af Amer) > 60 Glucose 78 Calcium 7.3 L Magnesium 2.2 05/19/19 02:23 Clean Catch Midstream Urine Culture - Final Mixed Urogenital Carito Impressions: Guidance Fluoroscopy 05/20/19 00:00 IMPRESSION: SUCCESSFUL PLACEMENT OF A 5 FR DUAL LUMEN 32 CM PICC IN THE LEFT BASILIC VEIN. Interventional Vascular Procedure 05/20/19 00:00 IMPRESSION: SUCCESSFUL PLACEMENT OF A 5 FR DUAL LUMEN 32 CM PICC IN THE LEFT BASILIC VEIN. PICC Line Insertion 05/20/19 00:00 IMPRESSION: SUCCESSFUL PLACEMENT OF A 5 FR DUAL LUMEN 32 CM PICC IN THE LEFT BASILIC VEIN. Thoracentesis Ultrasound 05/20/19 00:00 IMPRESSION: Ultrasound guided left-sided thoracentesis resulting in a pneumothorax. A 10 [place] small bore left-sided chest tube was placed. Chest X-Ray 05/21/19 08:00 IMPRESSION: Increasing bibasilar consolidation and pleural effusions. Assessment & Plan - Diagnosis (1) Pneumonia Qualifiers: Pneumonia type: due to unspecified organism Laterality: left Lung location: lower lobe of lung Qualified Code(s): J18.1 - Lobar pneumonia, unspecified organism Is this a current diagnosis for this admission?: Yes Plan: Continue per hospitalist team (2) Sepsis Qualifiers: Sepsis type: sepsis due to unspecified organism Sepsis acute organ dysfunction status: with acute organ dysfunction Severe sepsis acute organ dysfunction type: acute renal failure Acute renal failure type: with acute renal cortical necrosis Severe sepsis shock status: with septic shock Qualified Code(s): A41.9 - Sepsis, unspecified organism; R65.21 - Severe sepsis with septic shock; N17.1 - Acute kidney failure with acute cortical necrosis Is this a current diagnosis for this admission?: Yes Plan: Continue per hospitalist team (3) 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 (5) Pleural effusion, left Is this a current diagnosis for this admission?: Yes Plan: Status post thoracentesis and unfortunate pneumothorax, regiment per hospitalist team and interventional radiology - Time Time Spent with patient: 35 or more minutes
[2019-05-21] MEDS: ACETYLCYSTEINE 20% SOLN 800 MG/4 ML VIAL.NEB NEB SCH ×2 (10:32→20:24)
[2019-05-21] MEDS: GUAIFENESIN 600 MG TABLET.SA PO SCH ×2 (11:04→21:12)
[2019-05-21] MEDS: FAMOTIDINE 20 MG TABLET PO SCH ×2 (11:04→21:12)
[2019-05-21] MEDS: POTASSIUM CHLORIDE 20 MEQ PACKET PO SCH (11:05)
[2019-05-21] MEDS: MORPHINE SULFATE SR 15 MG TABLET PO SCH (11:06)
[2019-05-21] MEDS ORDERED: HYDROMORPHONE HCL 2 MG TABLET PO PRN (11:37)
[2019-05-21] MEDS ORDERED: MORPHINE SULFATE SR 30 MG TABLET PO ONE (12:00)
[2019-05-21] MEDS ORDERED: HYDROMORPHONE HCL INJ/PF 2 MG/ML AMPULE ONE (12:09)
--- NOTE | 2019-05-21 12:22 | RADIOLOGY REPORT (SQ) ---
EXAM DESCRIPTION: VENOUS UNILATERAL LOWER COMPLETED DATE/TIME: 05/21/2019 11:45 am REASON FOR STUDY: left leg pain, hx DVT COMPARISON: 03/08/2019, 02/09/2019 TECHNIQUE: Dynamic and static garcia scale and color images acquired of the left leg venous system. Se lected spectral images acquired with additional compression and augmentation maneuvers. The contralat eral common femoral vein and saphenofemoral junction were also imaged. Images stored on PACS. Technical note: Images are erroneously labeled right, the left lower extremity was scanned per techno logist report. LIMITATIONS: None. FINDINGS: COMMON FEMORAL: Nonocclusive thrombus present. FEMORAL: Nonocclusive thrombus present throughout. POPLITEAL: Normal compression, augmentation. No visualized echogenic material on garcia scale. No defec ts on color images. CALF VESSELS: Nonocclusive thrombus present in 1 of the paired posterior tibial veins. GSV and SSV: Normal compression, augmentation. No visualized echogenic material on garcia scale. No def ects on color images. ANY DEEP VENOUS INSUFFICIENCY: Not evaluated. ANY EVIDENCE OF POPLITEAL CYST: No. OTHER: No other significant finding. CONTRALATERAL COMMON FEMORAL VEIN AND SAPHENOFEMORAL JUNCTION: Normal phasicity, compression and augmentation. No visualized echogenic material on garcia scale. No de fects on color images. IMPRESSION: 1. There is nonocclusive thrombus present from the left common femoral vein through the distal femoral vein, and additionally within 1 of 2 paired posterior tibial veins. Overall burden of thrombus is generally decreased compared to prior examination dated 02/09/2019, in keeping with some i nterval resolution of now subacute to chronic thrombus. The presence of thrombus in the posterior ti bial vein was reported on examination dated 02/09/2019 although not on examination dated 03/08/2019; giv en the appearance, however this is likely residual thrombus that was not identified on 03/08/2019 rat er than new thrombus. 2. Technical note: Images are erroneously labeled right, the left lower extremity was scanned and doc umented per technologist report. Findings reported to RONDA Daniels at the time of imaging. TECHNICAL DOCUMENTATION: JOB ID: [id number] [employer]- All Rights Reserved Reading location - IP/workstation name: [email or web address]
--- NOTE | 2019-05-21 14:02 | PDOC PROGRESS REPORT ---
Subjective Progress Note for:: 05/21/19 Subjective:: 05/20/2019 patient was able to have a PICC line inserted today at 11 AM, therefore analgesics as well as antibiotics can be given by this site. Patient has no complaints Lactic acid on admission was 2.5 yesterday is down to 1.3 I will see him low at 7.6 H&H was stable at 10.5 and 31.9 vital signs are stable 105/67, temperature 98.4 O2 sat 96% on 1.5 L Patient is on day 2 of her Rocephin and Zithromax IV. She also needs to be back on her Xarelto, following her thoracentesis PICC line insertion. 05/21/2019 patient was complaining of left hip pain and left thigh pain, states that the pain medicines not working all the time. I did a Doppler ultrasound of the left leg looking for any acute changes in the venous flow may actually be a little better than it was back in February. Certainly no acute thrombus or occlusion. She is already on Xarelto 10 mg daily. Patient remains afebrile blood pressures are stable for her about 100/60 O2 sats 93% on 2 L nasal cannula WBCs are stable slightly lower 9.9 H&H 8.9 26.1. Electrolytes are normal. I added Zosyn to her Zithromax and due to the chest x- ray report of increasing consolidation. Likely however the patient looks stable Reason For Visit: PNEUMONIA, LEFT PLEURAL EFFUSION Physical Exam Vital Signs: Temp Pulse Resp BP Pulse Ox 97.6 F 77 16 98/65 L 93 05/21/19 12:35 05/21/19 08:26 05/21/19 12:35 05/21/19 12:35 05/21/19 12:35 Intake & Output 05/20/19 05/21/19 05/22/19 06:59 06:59 06:59 Intake Total 4300 660 50 Output Total 1200 540 Balance 3100 120 50 Weight 46.7 kg General appearance: PRESENT: mild distress Respiratory exam: PRESENT: clear to auscultation andreina. ABSENT: rales, rhonchi, wheezes Cardiovascular exam: PRESENT: RRR. ABSENT: diastolic murmur, rubs, systolic murmur Extremities exam: PRESENT: other - No redness to the left lower extremity, it is tender to palpate. It is also slightly larger than the right lower extremity. No warmth to the touch Results Laboratory Results: 05/21/19 05:45 05/21/19 05:45 05/21/19 05/21/19 05:45 05:45 WBC 9.9 RBC 2.77 L Hgb 8.9 L Hct 26.1 L MCV 94 MCH 32.2 MCHC 34.1 RDW 16.5 H Plt Count 183 Sodium 132.6 L Potassium 3.5 L Chloride 100 Carbon Dioxide 27 Anion Gap 6 BUN 5 L Creatinine 0.29 L Est GFR ( Amer) > 60 Est GFR (Non-Af Amer) > 60 Glucose 78 Calcium 7.3 L Magnesium 2.2 05/19/19 02:23 Clean Catch Midstream Urine Culture - Final Mixed Urogenital Gurjit Impressions: Guidance Fluoroscopy 05/20/19 00:00 IMPRESSION: SUCCESSFUL PLACEMENT OF A 5 FR DUAL LUMEN 32 CM PICC IN THE LEFT BASILIC VEIN. Interventional Vascular Procedure 05/20/19 00:00 IMPRESSION: SUCCESSFUL PLACEMENT OF A 5 FR DUAL LUMEN 32 CM PICC IN THE LEFT BASILIC VEIN. PICC Line Insertion 05/20/19 00:00 IMPRESSION: SUCCESSFUL PLACEMENT OF A 5 FR DUAL LUMEN 32 CM PICC IN THE LEFT BASILIC VEIN. Thoracentesis Ultrasound 05/20/19 00:00 IMPRESSION: Ultrasound guided left-sided thoracentesis resulting in a pneumothorax. A 10 Vietnamese small bore left-sided chest tube was placed. Chest X-Ray 05/21/19 08:00 IMPRESSION: Increasing bibasilar consolidation and pleural effusions. Venous Doppler Study 05/21/19 09:18 IMPRESSION: 1. There is nonocclusive thrombus present from the left common femoral vein through the distal femoral vein, and additionally within 1 of 2 paired posterior tibial veins. Overall burden of thrombus is generally decreased compared to prior examination dated 02/09/2019, in keeping with some interval resolution of now subacute to chronic thrombus. The presence of thrombus in the posterior tibial vein was reported on examination dated 02/09/2019 although not on examination dated 03/08/2019; given the appearance, however this is likely residual thrombus that was not identified on 03/08/2019 rather than new thrombus. 2. Technical note: Images are erroneously labeled right, the left lower extremity was scanned and documented per technologist report. Findings reported to RONDA Daniels at the time of imaging. 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 Ruby is consulted for continued management of this patient's breast cancer and associated problems. 05/19/[id number]-anzx-old female admitted with community-acquired pneumonia has carcinoma of the left breast metastasis to the bone liver and to the lungs. Patient x-rays indicates large left pleural effusion and pneumonia. 05/20/2019 she is being followed by oncology. Pain being controlled by morphine IV 05/21/2019 patient has morphine, Dilaudid, and MS Contin 30 mg every 12 hours for her pain. (2) Community acquired pneumonia of left lung Qualifiers: Lung location: unspecified part of lung Qualified Code(s): J18.9 - Pneumonia, unspecified organism Is this a current diagnosis for this admission?: Yes (3) Pneumonia Qualifiers: Pneumonia type: due to unspecified organism Laterality: left Lung location: lower lobe of lung Qualified Code(s): J18.1 - Lobar pneumonia, unspecified organism Is this a current diagnosis for this admission?: Yes Plan: -day 2 of IV Rocephin and IV Zithromax White count 11.3, lactic acid down to 1.3, patient is afebrile 98 4 05/21/2019 switching the patient from Rocephin to Zosyn. White count down slightly to 9.9, patient remains afebrile. Chest x-ray shows may be a little more consolidation bibasilar (4) Sepsis Qualifiers: Sepsis type: sepsis due to unspecified organism Sepsis acute organ dysfunction status: with acute organ dysfunction Severe sepsis acute organ dysfunction type: acute renal failure Acute renal failure type: with acute renal cortical necrosis Severe sepsis shock status: with septic shock Qualified Code(s): A41.9 - Sepsis, unspecified organism; R65.21 - Severe sepsis with septic shock; N17.1 - Acute kidney failure with acute cortical necrosis Is this a current diagnosis for this admission?: Yes Plan: 05/19/2019-patient's blood pressure this morning is 102/67, WBC count is 11,300, lactic acid is 2.5. Cultures are pending. Heart rate is 111. Meeting the criteria for sepsis and chest x-ray showing large left-sided pneumonia. 05/20/2019 CBC will be repeated today. Patient is afebrile and normotensive 05/21/2019 white count is down to 9.9, changing from Rocephin to Zosyn continuing with the Zithromax blood culture showed no growth in 48 hours, urine culture just shows mixed gurjit (5) Breast CA Qualifiers: Breast location: upper outer quadrant of breast Estrogen receptor status: positive Patient sex: female Laterality: right Qualified Code(s): C50.411 - Malignant neoplasm of upper-outer quadrant of right female breast; Z17.0 - Estrogen receptor positive status [ER+] Is this a current diagnosis for this admission?: Yes Plan: 05/20/2019 patient is being followed by oncology 05/21/2019 no changes at this time unless directed by oncology - Time Time Spent with patient: 25-34 minutes
[2019-05-21] MEDS: PIPERACILLIN SODIUM/TAZOBACTAM 3.375 GM in NORMAL SALINE 100 ML IV SCH ×2 (17:36→23:29)
[2019-05-21] MEDS: RIVAROXABAN 10 MG TABLET PO SCH (17:36)
[2019-05-21] MEDS: HYDROMORPHONE HCL INJ/PF 2 MG/ML AMPULE IV PRN ×3 (18:43→23:26)
[2019-05-21] MEDS: LEVALBUTEROL HCL NEB 0.63 MG/3 ML AMPUL NEB PRN (20:24)
[2019-05-21] MEDS ORDERED: LIDOCAINE 5% (700 MG) TRANSDERMAL ADH..PATCH TP ONE (20:30)
[2019-05-21] MEDS ORDERED: LIDOCAINE 5% (700 MG) TRANSDERMAL ADH..PATCH ONE (20:50)
[2019-05-21] MEDS: MORPHINE SULFATE SR 30 MG TABLET PO SCH (21:12)
[2019-05-21] MEDS ORDERED: MORPHINE SULFATE IR 30 MG TABLET PO SCH (22:00)
[2019-05-21] MEDS: AZITHROMYCIN 500 MG in DEXTROSE 5%-WATER 250 ML IV SCH (22:21)
[2019-05-22] MEDS: HYDROMORPHONE HCL INJ/PF 2 MG/ML AMPULE IV PRN ×5 (03:14→21:10)
[2019-05-22] MEDS: PIPERACILLIN SODIUM/TAZOBACTAM 3.375 GM in NORMAL SALINE 100 ML IV SCH ×4 (05:39→23:47)
[2019-05-22 06:08] LABS: HEMATOCRIT 26.9 % (36.0-47.0); HEMOGLOBIN 9.3 g/dL (12.0-15.5); MEAN CORPUSCULAR HEMOGLOBIN 32.7 pg (27.0-33.4); MEAN CORPUSCULAR HGB CONC 34.6 g/dL (32.0-36.0); MEAN CORPUSCULAR VOLUME 95 fl (80-97); PLATELET COUNT 136 10^3/uL (150-450); RED BLOOD COUNT 2.84 10^6/uL (3.72-5.28); RED CELL DISTRIBUTION WIDTH 16.2 % (11.5-14.0); WHITE BLOOD COUNT 9.4 10^3/uL (4.0-10.5)
[2019-05-22 06:28] LABS: ANION GAP 7 (5-19); BLOOD UREA NITROGEN 5 mg/dL (7-20); CALCIUM 7.3 mg/dL (8.4-10.2); CARBON DIOXIDE 26 mmol/L (22-30); CHLORIDE 100 mmol/L (98-107); GLUCOSE 71 mg/dL (75-110); POTASSIUM 3.7 mmol/L (3.6-5.0)
[2019-05-22] MEDS: POTASSIUM CHLORIDE 20 MEQ PACKET PO SCH (09:03)
[2019-05-22] MEDS: FAMOTIDINE 20 MG TABLET PO SCH ×2 (09:03→21:11)
[2019-05-22] MEDS: GUAIFENESIN 600 MG TABLET.SA PO SCH ×2 (09:03→21:12)
[2019-05-22] MEDS: MORPHINE SULFATE SR 30 MG TABLET PO SCH (09:03)
[2019-05-22] MEDS ORDERED: HYDROMORPHONE HCL INJ/PF 2 MG/ML AMPULE IV PRN (10:00)
[2019-05-22] MEDS: ACETYLCYSTEINE 20% SOLN 800 MG/4 ML VIAL.NEB NEB SCH ×2 (10:18→20:27)
--- NOTE | 2019-05-22 10:29 | PDOC PROGRESS REPORT ---
Subjective Progress Note for:: 05/22/19 Subjective:: 05/20/2019 patient was able to have a PICC line inserted today at 11 AM, therefore analgesics as well as antibiotics can be given by this site. Patient has no complaints Lactic acid on admission was 2.5 yesterday is down to 1.3 I will see him low at 7.6 H&H was stable at 10.5 and 31.9 vital signs are stable 105/67, temperature 98.4 O2 sat 96% on 1.5 L Patient is on day 2 of her Rocephin and Zithromax IV. She also needs to be back on her Xarelto, following her thoracentesis PICC line insertion. 05/21/2019 patient was complaining of left hip pain and left thigh pain, states that the pain medicines not working all the time. I did a Doppler ultrasound of the left leg looking for any acute changes in the venous flow, may actually be a little better than it was back in February. Certainly no acute thrombus or occlusion. She is already on Xarelto 10 mg daily. Patient remains afebrile blood pressures are stable for her about 100/60 O2 sats 93% on 2 L nasal cannula WBCs are stable slightly lower 9.9 H&H 8.9 26.1. Electrolytes are normal. I added Zosyn to her Zithromax and due to the chest x- ray report of increasing consolidation. Likely however the patient looks stable 05/22/2019 she continues to complain of left hip pain and left thigh pain, presumably is from metastatic disease to the bone. Oncology is trying to manage her pain medications. It looks like patient is taking Dilaudid IV every 2 hours had been refusing her MS Contin. It was stressed to her that she needs to take the long-acting narcotic and only use the Dilaudid as breakthrough pain location. It may be that patient would benefit from something such as amitriptyline at bedtime or even Klonopin throughout the day as needed She is on day 2 of Zosyn and day day 4 of azithromycin Reason For Visit: PNEUMONIA, LEFT PLEURAL EFFUSION Physical Exam Vital Signs: Temp Pulse Resp BP Pulse Ox 97.4 F 109 H 18 99/68 L 100 05/22/19 07:56 05/22/19 07:56 05/22/19 07:56 05/22/19 07:56 05/22/19 07:56 Intake & Output 05/21/19 05/22/19 05/23/19 06:59 06:59 06:59 Intake Total 660 600 Output Total 540 115 Balance 120 485 Weight 50.7 kg General appearance: PRESENT: no acute distress, other - Patient sleeping probably secondary to recent dose of IV Dilaudid. Resting comfortably. Respiratory exam: PRESENT: decreased breath sounds Cardiovascular exam: PRESENT: RRR. ABSENT: diastolic murmur, rubs, systolic murmur Neurological exam: PRESENT: other - Sleeping secondary to recent IV Dilaudid dosing Psychiatric exam: PRESENT: anxious, other - Spent probably 30 minutes in the room yesterday talking to patient and family about her left hip pain and left thigh pain, they have requested that I come up again today and talk to them about her pain management. I told him that primarily we are taking care of the pneumonia and her oncologist will be addressing the pain management Results Laboratory Results: 05/22/19 05:50 05/22/19 05:50 05/22/19 05/22/19 05:50 05:50 WBC 9.4 RBC 2.84 L Hgb 9.3 L Hct 26.9 L MCV 95 MCH 32.7 MCHC 34.6 RDW 16.2 H Plt Count 136 L Sodium 132.9 L Potassium 3.7 Chloride 100 Carbon Dioxide 26 Anion Gap 7 BUN 5 L Creatinine 0.30 L Est GFR ( Amer) > 60 Est GFR (Non-Af Amer) > 60 Glucose 71 L Calcium 7.3 L Magnesium 2.3 Impressions: Guidance Fluoroscopy 05/20/19 00:00 IMPRESSION: SUCCESSFUL PLACEMENT OF A 5 FR DUAL LUMEN 32 CM PICC IN THE LEFT BASILIC VEIN. Interventional Vascular Procedure 05/20/19 00:00 IMPRESSION: SUCCESSFUL PLACEMENT OF A 5 FR DUAL LUMEN 32 CM PICC IN THE LEFT BASILIC VEIN. PICC Line Insertion 05/20/19 00:00 IMPRESSION: SUCCESSFUL PLACEMENT OF A 5 FR DUAL LUMEN 32 CM PICC IN THE LEFT BASILIC VEIN. Thoracentesis Ultrasound 05/20/19 00:00 IMPRESSION: Ultrasound guided left-sided thoracentesis resulting in a pneumothorax. A 10 [place]ian small bore left-sided chest tube was placed. Chest X-Ray 05/21/19 08:00 IMPRESSION: Increasing bibasilar consolidation and pleural effusions. Venous Doppler Study 05/21/19 09:18 IMPRESSION: 1. There is nonocclusive thrombus present from the left common femoral vein through the distal femoral vein, and additionally within 1 of 2 paired posterior tibial veins. Overall burden of thrombus is generally decreased compared to prior examination dated 02/09/2019, in keeping with some interval resolution of now subacute to chronic thrombus. The presence of thrombus in the posterior tibial vein was reported on examination dated 02/09/2019 although not on examination dated 03/08/2019; given the appearance, however this is likely residual thrombus that was not identified on 03/08/2019 rather than new thrombus. 2. Technical note: Images are erroneously labeled right, the left lower extremity was scanned and documented per technologist report. Findings reported to RONDA Daniels at the time of imaging. 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 Ruby is consulted for continued management of this patient's breast cancer and associated problems. 05/19/[id number]-old female admitted with community-acquired pneumonia has carcinoma of the left breast metastasis to the bone liver and to the lungs. Patient x-rays indicates large left pleural effusion and pneumonia. 05/20/2019 she is being followed by oncology. Pain being controlled by morphine IV 05/21/2019 patient has morphine, Dilaudid, and MS Contin 30 mg every 12 hours for her pain. 05/22/2019 patient was reinforced once again to take the MS Contin, regardless of whether or not she thinks is helping. Diastases to the bone from her breast cancer (2) Community acquired pneumonia of left lung Qualifiers: Lung location: unspecified part of lung Qualified Code(s): J18.9 - Pneumonia, unspecified organism Is this a current diagnosis for this admission?: Yes Plan: Patient will be treated with IV Zithromax and IV Rocephin, as well as IV fluids. Daily CBCs, metabolic profiles and magnesium levels will be followed. Periodic chest x-rays will be used as necessary to follow the course of her disease process. 05/19/[id number]-icwd-old female admitted for minute acquired pneumonia left-sided large pneumonia admission lactic acid is 1.9 despite with IV fluids lactic acid level went up to 2.5. She become hypotensive last night. In my opinion she is unstable to stay in the fifth floor and upgrading her to [facility]. Presently on IV Rocephin and Zithromax. Cultures are pending. 05/22/2019 blood culture showed no growth after 72 hours. White count is come down to 9.4 so she is responding to antibiotics H&H's stable (3) Pneumonia Qualifiers: Pneumonia type: due to unspecified organism Laterality: left Lung lo cation: lower lobe of lung Qualified Code(s): J18.1 - Lobar pneumonia, unspecified organism Is this a current diagnosis for this admission?: Yes (4) Sepsis Qualifiers: Sepsis type: sepsis due to unspecified organism Sepsis acute organ dysfunction status: with acute organ dysfunction Severe sepsis acute organ dysfunction type: acute renal failure Acute renal failure type: with acute renal cortical necrosis Severe sepsis shock status: with septic shock Qualified Code(s): A41.9 - Sepsis, unspecified organism; R65.21 - Severe sepsis with septic shock; N17.1 - Acute kidney failure with acute cortical necrosis Is this a current diagnosis for this admission?: Yes Plan: 05/19/2019-patient's blood pressure this morning is 102/67, WBC count is 11,300, lactic acid is 2.5. Cultures are pending. Heart rate is 111. Meeting the criteria for sepsis and chest x-ray showing large left-sided pneumonia. 05/20/2019 CBC will be repeated today. Patient is afebrile and normotensive 05/21/2019 white count is down to 9.9, changing from Rocephin to Zosyn continuing with the Zithromax blood culture showed no growth in 48 hours, urine culture just shows mixed gurjit 811 patient remains afebrile, blood pressure runs around 100/60, pulse rate is in the low 100s. When patient was admitted it was distantly running in the upper 120s so it is coming down slowly BUN and creatinine are stable. I think I will give patient a bolus of 1 L fluids today to see if this brings her heart rate down to recheck lactic acid again (5) Breast CA Qualifiers: Breast location: upper outer quadrant of breast Estrogen receptor status: positive Patient sex: female Laterality: right Qualified Code(s): C50.411 - Malignant neoplasm of upper-outer quadrant of right female breast; Z17.0 - Estrogen receptor positive status [ER+] Is this a current diagnosis for this admission?: Yes - Time Time Spent with patient: 25-34 minutes
[2019-05-22] MEDS ORDERED: 1/2 NORMAL SALINE 1,000 ML IV ONE (10:30)
--- NOTE | 2019-05-22 13:13 | PDOC PROGRESS REPORT ---
Subjective Progress Note for:: 05/22/19 Subjective:: Yesterday pt was in severe pain but refusing the MSSR, felt the IV morphine was not helping, so we changed it to IV dilaudid 2mg and she slept thereafter, this am called by nursing, pt was in pain and the 2mg was not enough so we increased dilaudid again this am to 3mg. I had long discussion w/ pt, discussed case w/ nursing and hospitalist team, spent 45 min in discussion/coordination of care. Plan d/c MSSR, start fentanyl patch, pt has not urinated x 24 hrs so plan bladder scan and levine placement. Hosptalist team will consult surgery, and plan restaging imaging maybe tomorrow. Reason For Visit: PNEUMONIA, LEFT PLEURAL EFFUSION Physical Exam Vital Signs: Temp Pulse Resp BP Pulse Ox 97.4 F 109 H 18 99/68 L 100 05/22/19 07:56 05/22/19 07:56 05/22/19 07:56 05/22/19 07:56 05/22/19 07:56 Intake & Output 05/21/19 05/22/19 05/23/19 06:59 06:59 06:59 Intake Total 660 700 Output Total 540 115 Balance 120 585 Weight 50.7 kg General appearance: PRESENT: no acute distress, well-developed, well-nourished Head exam: PRESENT: atraumatic, normocephalic Eye exam: PRESENT: conjunctiva pink, EOMI, PERRLA. ABSENT: scleral icterus Ear exam: PRESENT: normal external ear exam Mouth exam: PRESENT: moist, tongue midline Neck exam: ABSENT: carotid bruit, JVD, lymphadenopathy, thyromegaly Respiratory exam: PRESENT: clear to auscultation andreina. ABSENT: rales, rhonchi, wheezes Cardiovascular exam: PRESENT: RRR. ABSENT: diastolic murmur, rubs, systolic murmur Pulses: PRESENT: normal dorsalis pedis pul Vascular exam: PRESENT: normal capillary refill GI/Abdominal exam: PRESENT: normal bowel sounds, soft. ABSENT: distended, guarding, mass, organolmegaly, rebound, tenderness Rectal exam: PRESENT: deferred Extremities exam: PRESENT: full ROM. ABSENT: calf tenderness, clubbing, pedal edema Neurological exam: PRESENT: alert, awake, oriented to person, oriented to place, oriented to time, oriented to situation, CN II-XII grossly intact. ABSENT: motor sensory deficit Psychiatric exam: PRESENT: appropriate affect, normal mood. ABSENT: homicidal ideation, suicidal ideation Skin exam: PRESENT: dry, intact, warm. ABSENT: cyanosis, rash Results Laboratory Results: 05/22/19 05:50 05/22/19 05:50 05/22/19 05/22/19 05/22/19 05:50 05:50 11:42 WBC 9.4 RBC 2.84 L Hgb 9.3 L Hct 26.9 L MCV 95 MCH 32.7 MCHC 34.6 RDW 16.2 H Plt Count 136 L Sodium 132.9 L Potassium 3.7 Chloride 100 Carbon Dioxide 26 Anion Gap 7 BUN 5 L Creatinine 0.30 L Est GFR ( Amer) > 60 Est GFR (Non-Af Amer) > 60 Glucose 71 L Lactic Acid 0.9 Calcium 7.3 L Magnesium 2.3 Impressions: Guidance Fluoroscopy 05/20/19 00:00 IMPRESSION: SUCCESSFUL PLACEMENT OF A 5 FR DUAL LUMEN 32 CM PICC IN THE LEFT BASILIC VEIN. Interventional Vascular Procedure 05/20/19 00:00 IMPRESSION: SUCCESSFUL PLACEMENT OF A 5 FR DUAL LUMEN 32 CM PICC IN THE LEFT BASILIC VEIN. PICC Line Insertion 05/20/19 00:00 IMPRESSION: SUCCESSFUL PLACEMENT OF A 5 FR DUAL LUMEN 32 CM PICC IN THE LEFT BASILIC VEIN. Thoracentesis Ultrasound 05/20/19 00:00 IMPRESSION: Ultrasound guided left-sided thoracentesis resulting in a pneumothorax. A 10 Setswana small bore left-sided chest tube was placed. Chest X-Ray 05/21/19 08:00 IMPRESSION: Increasing bibasilar consolidation and pleural effusions. Venous Doppler Study 05/21/19 09:18 IMPRESSION: 1. There is nonocclusive thrombus present from the left common femoral vein through the distal femoral vein, and additionally within 1 of 2 paired posterior tibial veins. Overall burden of thrombus is generally decreased compared to prior examination dated 02/09/2019, in keeping with some interval resolution of now subacute to chronic thrombus. The presence of thrombus in the posterior tibial vein was reported on examination dated 02/09/2019 although not on examination dated 03/08/2019; given the appearance, however this is likely residual thrombus that was not identified on 03/08/2019 rather than new thrombus. 2. Technical note: Images are erroneously labeled right, the left lower extremity was scanned and documented per technologist report. Findings reported to RNODA Daniels at the time of imaging. Assessment & Plan - Diagnosis (1) Pneumonia Qualifiers: Pneumonia type: due to unspecified organism Laterality: left Lung location: lower lobe of lung Qualified Code(s): J18.1 - Lobar pneumonia, unspecified organism Is this a current diagnosis for this admission?: Yes Plan: Con't per hospitalist team (2) Sepsis Qualifiers: Sepsis type: sepsis due to unspecified organism Sepsis acute organ dysfu nction status: with acute organ dysfunction Severe sepsis acute organ dys function type: acute renal failure Acute renal failure type: with acute renal cortical necrosis Severe sepsis shock status: with septic shock Qualified Code(s): A41.9 - Sepsis, unspecified organism; R65.21 - Severe sepsis with septic shock; N17.1 - Acute kidney failure with acute cortical necrosis Is this a current diagnosis for this admission?: Yes Plan: Cont per hospitalist team (3) 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 - Time Time Spent with patient: 35 or more minutes
[2019-05-22] MEDS: FENTANYL 50 MCG/HR PATCH.TD72 TD SCH (13:54)
--- NOTE | 2019-05-22 15:33 | Progress Note ---
Provider Note Provider Note: 05/22/2019 upon further discussion with Dr. Abraham, it was decided that a general surgery consult should be made concerning removal of pigtail chest tube. Dr. Peralta, general surgery on-call came up to the room and introduced himself to the patient, explained the procedure of removal of chest tube to the patient. Patient had no questions. Patient had the catheter removed without incident and occlusive dressing was applied. Patient did not seem to have any discomfort during the procedure. Portable chest x-ray has been ordered to assess status of the chest. Patient tolerated procedure well
--- NOTE | 2019-05-22 15:47 | RADIOLOGY REPORT (SQ) ---
EXAM DESCRIPTION: CHEST SINGLE VIEW COMPLETED DATE/TIME: 05/22/2019 3:34 pm REASON FOR STUDY: removal chest tube COMPARISON: 05/21/2019 EXAM PARAMETERS: NUMBER OF VIEWS: One view. TECHNIQUE: Single frontal radiographic view of the chest acquired. RADIATION DOSE: NA LIMITATIONS: None. FINDINGS: There has been interval removal of a left-sided pigtail chest tube. There is no significa nt pneumothorax. Otherwise stable examination with left greater than right pleural effusions and ass ociated atelectasis or consolidation, cardiomegaly, and left upper extremity PICC. IMPRESSION: There has been interval removal of a left-sided pigtail chest tube. There is no signifi cant pneumothorax. Otherwise stable examination with left greater than right pleural effusions and a ssociated atelectasis or consolidation, cardiomegaly, and left upper extremity PICC. TECHNICAL DOCUMENTATION: JOB ID: [id number] [employer]- All Rights Reserved Reading location - IP/workstation name: [email or web address]
[2019-05-22] MEDS: RIVAROXABAN 10 MG TABLET PO SCH (17:49)
[2019-05-22] MEDS ORDERED: LIDOCAINE 5% (700 MG) TRANSDERMAL ADH..PATCH TP SCH (18:00)
[2019-05-22] MEDS: LEVALBUTEROL HCL NEB 0.63 MG/3 ML AMPUL NEB PRN (20:27)
[2019-05-22] MEDS: AZITHROMYCIN 500 MG in DEXTROSE 5%-WATER 250 ML IV SCH (21:09)
[2019-05-23] MEDS ORDERED: MORPHINE SULFATE 10 MG/ML INJ IV PRN (01:00)
[2019-05-23] MEDS: HYDROMORPHONE HCL INJ/PF 2 MG/ML AMPULE IV PRN ×3 (03:19→14:44)
[2019-05-23] MEDS: PIPERACILLIN SODIUM/TAZOBACTAM 3.375 GM in NORMAL SALINE 100 ML IV SCH ×3 (05:14→17:25)
[2019-05-23] MEDS: ACETYLCYSTEINE 20% SOLN 800 MG/4 ML VIAL.NEB NEB SCH ×2 (08:28→20:44)
--- NOTE | 2019-05-23 08:29 | PDOC PROGRESS REPORT ---
Subjective Progress Note for:: 05/23/19 Subjective:: Resting this am, first am that I am seeing her comfortable. Reason For Visit: PNEUMONIA, LEFT PLEURAL EFFUSION Physical Exam Vital Signs: Temp Pulse Resp BP Pulse Ox 97.9 F 105 H 18 101/67 98 05/22/19 23:32 05/23/19 07:00 05/22/19 23:32 05/22/19 23:32 05/22/19 23:32 Intake & Output 05/22/19 05/23/19 05/24/19 06:59 06:59 06:59 Intake Total 700 1550 Output Total 115 975 Balance 585 575 Weight 50.7 kg 51.4 kg General appearance: PRESENT: no acute distress, well-developed, well-nourished Head exam: PRESENT: atraumatic, normocephalic Eye exam: PRESENT: conjunctiva pink, EOMI, PERRLA. ABSENT: scleral icterus Ear exam: PRESENT: normal external ear exam Mouth exam: PRESENT: moist, tongue midline Neck exam: ABSENT: carotid bruit, JVD, lymphadenopathy, thyromegaly Respiratory exam: PRESENT: clear to auscultation andreina. ABSENT: rales, rhonchi, wheezes Cardiovascular exam: PRESENT: RRR. ABSENT: diastolic murmur, rubs, systolic murmur Pulses: PRESENT: normal dorsalis pedis pul Vascular exam: PRESENT: normal capillary refill GI/Abdominal exam: PRESENT: normal bowel sounds, soft. ABSENT: distended, guarding, mass, organolmegaly, rebound, tenderness Rectal exam: PRESENT: deferred Extremities exam: PRESENT: full ROM. ABSENT: calf tenderness, clubbing, pedal edema Neurological exam: PRESENT: alert, awake, oriented to person, oriented to place, oriented to time, oriented to situation, CN II-XII grossly intact. ABSENT: motor sensory deficit Psychiatric exam: PRESENT: appropriate affect, normal mood. ABSENT: homicidal ideation, suicidal ideation Skin exam: PRESENT: dry, intact, warm. ABSENT: cyanosis, rash Results Laboratory Results: 05/22/19 05:50 05/22/19 05:50 05/19/19 05/22/19 01:30 11:42 WBC 11.3 H RBC 3.31 L Hgb 10.5 L Hct 31.9 L MCV 96 MCH 31.6 MCHC 32.7 RDW 17.0 H Plt Count 229 Lactic Acid 0.9 Impressions: Guidance Fluoroscopy 05/20/19 00:00 IMPRESSION: SUCCESSFUL PLACEMENT OF A 5 FR DUAL LUMEN 32 CM PICC IN THE LEFT BASILIC VEIN. Interventional Vascular Procedure 05/20/19 00:00 IMPRESSION: SUCCESSFUL PLACEMENT OF A 5 FR DUAL LUMEN 32 CM PICC IN THE LEFT BASILIC VEIN. PICC Line Insertion 05/20/19 00:00 IMPRESSION: SUCCESSFUL PLACEMENT OF A 5 FR DUAL LUMEN 32 CM PICC IN THE LEFT BASILIC VEIN. Thoracentesis Ultrasound 05/20/19 00:00 IMPRESSION: Ultrasound guided left-sided thoracentesis resulting in a pneumothorax. A 10 Burundian small bore left-sided chest tube was placed. Venous Doppler Study 05/21/19 09:18 IMPRESSION: 1. There is nonocclusive thrombus present from the left common femoral vein through the distal femoral vein, and additionally within 1 of 2 paired posterior tibial veins. Overall burden of thrombus is generally decreased compared to prior examination dated 02/09/2019, in keeping with some interval resolution of now subacute to chronic thrombus. The presence of thrombus in the posterior tibial vein was reported on examination dated 02/09/2019 although not on examination dated 03/08/2019; given the appearance, however this is likely residual thrombus that was not identified on 03/08/2019 rather than new thrombus. 2. Technical note: Images are erroneously labeled right, the left lower extremity was scanned and documented per technologist report. Findings reported to RONDA Daniels at the time of imaging. Chest X-Ray 05/22/19 00:00 IMPRESSION: There has been interval removal of a left-sided pigtail chest tube. There is no significant pneumothorax. Otherwise stable examination with left greater than right pleural effusions and associated atelectasis or consolidation, cardiomegaly, and left upper extremity PICC. Assessment & Plan - Diagnosis (1) Pneumonia Qualifiers: Pneumonia type: due to unspecified organism Laterality: left Lung location: lower lobe of lung Qualified Code(s): J18.1 - Lobar pneumonia, unspecified organism Is this a current diagnosis for this admission?: Yes Plan: Improved (2) Sepsis Qualifiers: Sepsis type: sepsis due to unspecified organism Sepsis acute organ dysf unction status: with acute organ dysfunction Severe sepsis acute organ dy sfunction type: acute renal failure Acute renal failure type: with acute renal cortical necrosis Severe sepsis shock status: with septic shock Qualified Code(s): A41.9 - Sepsis, unspecified organism; R65.21 - Severe sepsis with septic shock; N17.1 - Acute kidney failure with acute cortical necrosis Is this a current diagnosis for this admission?: Yes Plan: Improved (3) 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
[2019-05-23] MEDS: FENTANYL 50 MCG/HR PATCH.TD72 TD SCH (09:32)
[2019-05-23] MEDS: POTASSIUM CHLORIDE 20 MEQ PACKET PO SCH (09:51)
[2019-05-23] MEDS: GUAIFENESIN 600 MG TABLET.SA PO SCH ×2 (09:51→22:03)
[2019-05-23] MEDS: FAMOTIDINE 20 MG TABLET PO SCH ×2 (09:51→22:03)
--- NOTE | 2019-05-23 14:58 | RADIOLOGY REPORT (SQ) ---
EXAM DESCRIPTION: CT CHEST WITHOUT COMPLETED DATE/TIME: 05/23/2019 2:14 pm REASON FOR STUDY: metastic breast COMPARISON: None. TECHNIQUE: CT scan performed of the chest without intravenous contrast. Images reviewed with lung, soft tissue and bone windows. Reconstructed coronal and sagittal MPR images reviewed. All images st ored on PACS. All CT scanners at this facility use dose modulation, iterative reconstruction, and/or weight based d osing when appropriate to reduce radiation dose to as low as reasonably achievable (ALARA). [facility]: Dose Right [facility]: CareDose [facility]: Dose Right [facility]: Teradose 4D [facility]: [employer] RADIATION DOSE: mGy. LIMITATIONS: No technical limitations. FINDINGS: LUNGS AND PLEURA: Bilateral pleural effusions. Calcifications as the right diaphragm. A couple nodular density is seen along the fissure on the right on image 28 series 2 and image 1 series 3 There are airspaces within the fluid in the left hemithorax. There is pleural thickening on the l eft medially along the mediastinum. There is a destructive bone lesion on the left. HILAR AND MEDIASTINAL STRUCTURES: No identified masses or abnormal nodes. No obvious aneurysm. HEART AND VASCULAR STRUCTURES: No aneurysm. No pericardial effusion. UPPER ABDOMEN: See separate report of the CT of the abdomen. THYROID AND OTHER SOFT TISSUES: No masses. No adenopathy. BONES: There is marked metastatic disease to bone. Is includes a large destructive lesion in 1 of th e left ribs. HARDWARE: None in the chest. OTHER: No other significant findings. IMPRESSION: Bilateral pleural effusions with pleural thickening on the left. There are 2 stable pul monary nodules on the right. There is extensive osseous metastatic disease. TECHNICAL DOCUMENTATION: JOB ID: [id number] Quality ID # [id number]: Final reports with documentation of one or more dose reduction techniques (e.g., Au tomated exposure control, adjustment of the mA and/or kV according to patient size, use of iterative reconstruction technique) 2010 [employer]- All Rights Reserved Reading location - IP/workstation name: [email or web address]
--- NOTE | 2019-05-23 15:04 | RADIOLOGY REPORT (SQ) ---
EXAM DESCRIPTION: CT ABD/PELVIS NO ORAL OR IV COMPLETED DATE/TIME: 05/23/2019 2:13 pm REASON FOR STUDY: met breast cancer COMPARISON: None. TECHNIQUE: CT scan of the abdomen and pelvis performed without intravenous or oral contrast. Images reviewed with lung, soft tissue, and bone windows. Reconstructed coronal and sagittal MPR images revi ewed. All images stored on PACS. All CT scanners at this facility use dose modulation, iterative reconstruction, and/or weight based d osing when appropriate to reduce radiation dose to as low as reasonably achievable (ALARA). [facility]: Dose Right [facility]: CareDose [facility]: Dose Right [facility]: Teradose 4D [facility]: Smart Links Global RADIATION DOSE: CT Rad equipment meets quality standard of care and radiation dose reduction techniq ues were employed. CTDIvol: 4.8 - 5.3 mGy. DLP: 442 mGy-cm.mGy. LIMITATIONS: None. FINDINGS: LOWER CHEST: No significant findings. No nodules or infiltrates. NON-CONTRASTED LIVER, SPLEEN, ADRENALS: There is diffuse, increased metastatic disease in the liver. The spleen and adrenal glands appear normal. PANCREAS: No masses. No peripancreatic inflammatory changes. GALLBLADDER: No identified stones by CT criteria. No inflammatory changes to suggest cholecystitis. RIGHT KIDNEY AND URETER: No suspicious masses. Assessment limited by lack of IV contrast. Nonobstru cting intrarenal calculi. No hydronephrosis or hydroureter. LEFT KIDNEY AND URETER: No suspicious masses. Assessment limited by lack of IV contrast. Nonobstruc ting intrarenal calculi. No hydronephrosis or hydroureter. AORTA AND RETROPERITONEUM: No aneurysm. No retroperitoneal masses or adenopathy. BOWEL AND PERITONEAL CAVITY: No obvious masses or inflammatory changes. No free fluid. APPENDIX: Normal. PELVIS, BLADDER, AND ABDOMINAL WALL:No abnormal masses. No free fluid. Bladder normal. BONES: Increasing metastatic disease. At L2-3 on the left there is soft tissue extension outside the bone that involves the left neural foramen. Marked lytic and sclerotic changes are seen that appear to have increased. OTHER: No other significant finding. IMPRESSION: Increasing metastatic disease to the liver and to the bone. COMMENT: Quality ID # [id number]: Final reports with documentation of one or more dose reduction techniques (e.g., Automated exposure control, adjustment of the mA and/or kV according to patient size, use of iterative reconstruction technique) TECHNICAL DOCUMENTATION: JOB ID: [id number] [employer]- All Rights Reserved Reading location - IP/workstation name: [email or web address]
[2019-05-23] MEDS: RIVAROXABAN 10 MG TABLET PO SCH (16:24)
[2019-05-23] MEDS: RINGERS SOLUTION,LACTATED 1,000 ML IV PRN (19:53)
[2019-05-23] MEDS ORDERED: AZITHROMYCIN 250 MG TABLET PO SCH (22:00)
[2019-05-23] MEDS: LEVALBUTEROL HCL NEB 0.63 MG/3 ML AMPUL NEB PRN (23:24)
[2019-05-24] MEDS: PIPERACILLIN SODIUM/TAZOBACTAM 3.375 GM in NORMAL SALINE 100 ML IV SCH ×2 (00:09→05:44)
[2019-05-24] MEDS: HYDROMORPHONE HCL INJ/PF 2 MG/ML AMPULE IV PRN ×4 (01:47→17:52)
--- NOTE | 2019-05-24 08:49 | PDOC PROGRESS REPORT ---
Subjective Progress Note for:: 05/24/19 Subjective:: pain controlled better w/ IV diluadid and fentanyl, got some sleep yesterday and ate small meal and spoke w/ friends/family last night. I had long discussion about CT Results, there is L2/3 lesion w/ nerve impingement and L rib met corresponding to her most severe areas of pain. Also there is multiple new liver lesions. We discussed these findings, discussed code status, pt and fam agreed to DNR. Ordered steroids to start today. Also ordered enema for pt. Reason For Visit: PNEUMONIA, LEFT PLEURAL EFFUSION Physical Exam Vital Signs: Temp Pulse Resp BP Pulse Ox 97.6 F 107 H 18 111/66 99 05/24/19 03:26 05/24/19 07:00 05/24/19 03:26 05/24/19 03:26 05/24/19 03:26 Intake & Output 05/23/19 05/24/19 05/25/19 06:59 06:59 06:59 Intake Total 1650 1620 Output Total 975 575 Balance 675 1045 Weight 51.4 kg 51.4 kg General appearance: PRESENT: no acute distress, well-developed, well-nourished Head exam: PRESENT: atraumatic, normocephalic Eye exam: PRESENT: conjunctiva pink, EOMI, PERRLA. ABSENT: scleral icterus Ear exam: PRESENT: normal external ear exam Mouth exam: PRESENT: moist, tongue midline Neck exam: ABSENT: carotid bruit, JVD, lymphadenopathy, thyromegaly Respiratory exam: PRESENT: clear to auscultation andreina. ABSENT: rales, rhonchi, wheezes Cardiovascular exam: PRESENT: RRR. ABSENT: diastolic murmur, rubs, systolic murmur Pulses: PRESENT: normal dorsalis pedis pul Vascular exam: PRESENT: normal capillary refill GI/Abdominal exam: PRESENT: normal bowel sounds, soft. ABSENT: distended, guarding, mass, organolmegaly, rebound, tenderness Rectal exam: PRESENT: deferred Extremities exam: PRESENT: full ROM. ABSENT: calf tenderness, clubbing, pedal edema Neurological exam: PRESENT: alert, awake, oriented to person, oriented to place, oriented to time, oriented to situation, CN II-XII grossly intact. ABSENT: motor sensory deficit Psychiatric exam: PRESENT: appropriate affect, normal mood. ABSENT: homicidal ideation, suicidal ideation Skin exam: PRESENT: dry, intact, warm. ABSENT: cyanosis, rash Results Laboratory Results: 05/22/19 05:50 05/22/19 05:50 05/19/19 01:30 Blood Blood Culture - Final NO GROWTH IN 5 DAYS Impressions: Guidance Fluoroscopy 05/20/19 00:00 IMPRESSION: SUCCESSFUL PLACEMENT OF A 5 FR DUAL LUMEN 32 CM PICC IN THE LEFT BASILIC VEIN. Interventional Vascular Procedure 05/20/19 00:00 IMPRESSION: SUCCESSFUL PLACEMENT OF A 5 FR DUAL LUMEN 32 CM PICC IN THE LEFT BASILIC VEIN. PICC Line Insertion 05/20/19 00:00 IMPRESSION: SUCCESSFUL PLACEMENT OF A 5 FR DUAL LUMEN 32 CM PICC IN THE LEFT BASILIC VEIN. Thoracentesis Ultrasound 05/20/19 00:00 IMPRESSION: Ultrasound guided left-sided thoracentesis resulting in a pneumothorax. A 10 Indonesian small bore left-sided chest tube was placed. Venous Doppler Study 05/21/19 09:18 IMPRESSION: 1. There is nonocclusive thrombus present from the left common femoral vein through the distal femoral vein, and additionally within 1 of 2 paired posterior tibial veins. Overall burden of thrombus is generally decreased compared to prior examination dated 02/09/2019, in keeping with some interval resolution of now subacute to chronic thrombus. The presence of thrombus in the posterior tibial vein was reported on examination dated 02/09/2019 although not on examination dated 03/08/2019; given the appearance, however this is likely residual thrombus that was not identified on 03/08/2019 rather than new thrombus. 2. Technical note: Images are erroneously labeled right, the left lower extremity was scanned and documented per technologist report. Findings reported to RONDA Daniels at the time of imaging. Chest X-Ray 05/22/19 00:00 IMPRESSION: There has been interval removal of a left-sided pigtail chest tube. There is no significant pneumothorax. Otherwise stable examination with left greater than right pleural effusions and associated atelectasis or consolidation, cardiomegaly, and left upper extremity PICC. Abdomen/Pelvis CT 05/23/19 00:00 IMPRESSION: Increasing metastatic disease to the liver and to the bone. Chest CT 05/23/19 00:00 IMPRESSION: Bilateral pleural effusions with pleural thickening on the left. There are 2 stable pulmonary nodules on the right. There is extensive osseous metastatic disease. Assessment & Plan - Diagnosis (1) Pneumonia Qualifiers: Pneumonia type: due to unspecified organism Laterality: left Lung location: lower lobe of lung Qualified Code(s): J18.1 - Lobar pneumonia, unspecified organism Is this a current diagnosis for this admission?: Yes Plan: Improved (2) Sepsis Qualifiers: Sepsis type: sepsis due to unspecified organism Sepsis acute organ dysfunction status: with acute organ dysfunction Severe sepsis acute organ dysfunction type: acute renal failure Acute renal failure type: with acute renal cortical necrosis Severe sepsis shock status: with septic shock Qualified Code(s): A41.9 - Sepsis, unspecified organism; R65.21 - Severe sepsis with septic shock; N17.1 - Acute kidney failure with acute cortical necrosis Is this a current diagnosis for this admission?: Yes Plan: Improved (3) 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 Spence, rad onc who will see her today (4) Pain, neoplasm-related Is this a current diagnosis for this admission?: Yes Plan: Cont fentanly and dilaudid (5) Pleural effusion, left Is this a current diagnosis for this admission?: Yes Plan: Resolved mostly, still w/ pleural disease causing mild cough - Time Time Spent with patient: 35 or more minutes
[2019-05-24] MEDS: ACETYLCYSTEINE 20% SOLN 800 MG/4 ML VIAL.NEB NEB SCH ×2 (08:57→20:27)
[2019-05-24] MEDS: DEXAMETHASONE SOD PHOSPHATE INJ 4 MG/1 ML VIAL IV SCH ×2 (09:32→13:37)
[2019-05-24] MEDS: FENTANYL 50 MCG/HR PATCH.TD72 TD SCH (09:32)
[2019-05-24] MEDS: POTASSIUM CHLORIDE 20 MEQ PACKET PO SCH (09:32)
[2019-05-24] MEDS: FAMOTIDINE 20 MG TABLET PO SCH ×2 (09:32→23:07)
[2019-05-24] MEDS: GUAIFENESIN 600 MG TABLET.SA PO SCH ×2 (09:32→23:07)
--- NOTE | 2019-05-24 16:23 | PDOC PROGRESS REPORT ---
Subjective Progress Note for:: 05/24/19 Subjective:: This is very pleasant but unfortunate 44 years old female patient with stage IV left breast CA with metastasis to the bones and to the liver presented with chief complaint of fever of 3 days duration at admission patient found to be febrile with T-max of 101.1, leukocytosis with 11,300 and her chest x-ray revealed a left-sided lobar pneumonia and left large pleural effusion. Is been started on cefepime and Zosyn. I switched her antibiotics to Levaquin only. Dr. Ruby has a long discussion with the patient and family regarding the CT finding and alcohol visit to change her CODE STATUS to DNR. When I see the patient she is in sound sleep. Reason For Visit: PNEUMONIA, LEFT PLEURAL EFFUSION Physical Exam Vital Signs: Temp Pulse Resp BP Pulse Ox 98.0 F 101 H 16 143/54 H 97 05/24/19 09:22 05/24/19 14:00 05/24/19 09:22 05/24/19 09:22 05/24/19 09:22 Intake & Output 05/23/19 05/24/19 05/25/19 06:59 06:59 06:59 Intake Total 1650 1620 Output Total 975 575 Balance 675 1045 Weight 51.4 kg 51.4 kg Results Laboratory Results: 05/22/19 05:50 05/22/19 05:50 05/19/19 03:09 Blood Blood Culture - Final Corynebacterium Species 05/19/19 01:30 Blood Blood Culture - Final NO GROWTH IN 5 DAYS Impressions: Guidance Fluoroscopy 05/20/19 00:00 IMPRESSION: SUCCESSFUL PLACEMENT OF A 5 FR DUAL LUMEN 32 CM PICC IN THE LEFT BASILIC VEIN. Interventional Vascular Procedure 05/20/19 00:00 IMPRESSION: SUCCESSFUL PLACEMENT OF A 5 FR DUAL LUMEN 32 CM PICC IN THE LEFT BASILIC VEIN. PICC Line Insertion 05/20/19 00:00 IMPRESSION: SUCCESSFUL PLACEMENT OF A 5 FR DUAL LUMEN 32 CM PICC IN THE LEFT BASILIC VEIN. Thoracentesis Ultrasound 05/20/19 00:00 IMPRESSION: Ultrasound guided left-sided thoracentesis resulting in a pneumothorax. A 10 Yi small bore left-sided chest tube was placed. Venous Doppler Study 05/21/19 09:18 IMPRESSION: 1. There is nonocclusive thrombus present from the left common femoral vein through the distal femoral vein, and additionally within 1 of 2 paired posterior tibial veins. Overall burden of thrombus is generally decreased compared to prior examination dated 02/09/2019, in keeping with some interval resolution of now subacute to chronic thrombus. The presence of thrombus in the posterior tibial vein was reported on examination dated 02/09/2019 although not on examination dated 03/08/2019; given the appearance, however this is likely residual thrombus that was not identified on 03/08/2019 rather than new thrombus. 2. Technical note: Images are erroneously labeled right, the left lower extremity was scanned and documented per technologist report. Findings reported to RONDA Daniels at the time of imaging. Chest X-Ray 05/22/19 00:00 IMPRESSION: There has been interval removal of a left-sided pigtail chest tube. There is no significant pneumothorax. Otherwise stable examination with left greater than right pleural effusions and associated atelectasis or consolidation, cardiomegaly, and left upper extremity PICC. Abdomen/Pelvis CT 05/23/19 00:00 IMPRESSION: Increasing metastatic disease to the liver and to the bone. Chest CT 05/23/19 00:00 IMPRESSION: Bilateral pleural effusions with pleural thickening on the left. There are 2 stable pulmonary nodules on the right. There is extensive osseous metastatic disease. Assessment and Plan - Diagnosis (1) Left lower lobe pneumonia Is this a current diagnosis for this admission?: Yes Plan: Her antibiotics switched from Zosyn and cefepime to Levaquin. (2) Recurrent left pleural effusion Is this a current diagnosis for this admission?: Yes Plan: Probably related to malignancy. (3) Stage IV left breast CA Is this a current diagnosis for this admission?: Yes Plan: Agent has multiple metastasis to the liver, metastasis to L2/L3 and to her left wrist. Management per her primary oncologist. (4) Pain, neoplasm-related Is this a current diagnosis for this admission?: Yes Plan: Continue current pain management.
[2019-05-24] MEDS: RIVAROXABAN 10 MG TABLET PO SCH (18:09)
[2019-05-24] MEDS: DEXTROSE 5%-1/2 NORMAL SALINE 1,000 ML IV PRN (18:30)
[2019-05-25] MEDS: HYDROMORPHONE HCL INJ/PF 2 MG/ML AMPULE IV PRN ×5 (00:45→21:27)
[2019-05-25] MEDS: PIPERACILLIN SODIUM/TAZOBACTAM 3.375 GM in NORMAL SALINE 100 ML IV SCH (02:51)
[2019-05-25] MEDS: ACETYLCYSTEINE 20% SOLN 800 MG/4 ML VIAL.NEB NEB SCH ×2 (07:58→21:31)
--- NOTE | 2019-05-25 08:19 | PDOC PROGRESS REPORT ---
Subjective Progress Note for:: 05/25/19 Subjective:: Patient went on for radiation yesterday, and had her first treatment and was able to tolerate it. Will require IV dosing of pain medication before she goes down each day. Radiation oncology talked about giving 3-4 high doses of radiation. Thereafter seeing how she does as an outpatient and then deciding on further radiation if needed in terms of pain control. She will need to do those radiation treatments as an inpatient as she is having acute pain that is unc ontrolled with oral only medications, needs IV medication. I discussed palliative care with the patient and family, they seem agreeable to this so we will have a palliative care consult with community hospice volunteer Elida. She is going to be meeting the patient this afternoon and we can try and see what sort of home situation we can get the patient if possible. Reason For Visit: PNEUMONIA, LEFT PLEURAL EFFUSION Physical Exam Vital Signs: Temp Pulse Resp BP Pulse Ox 97.6 F 106 H 18 111/76 96 05/25/19 03:49 05/25/19 07:00 05/25/19 03:49 05/25/19 03:49 05/25/19 03:49 Intake & Output 05/24/19 05/25/19 05/26/19 06:59 06:59 06:59 Intake Total 1620 100 Output Total 575 325 Balance 1045 -225 Weight 51.4 kg 53.2 kg General appearance: PRESENT: no acute distress, well-developed, well-nourished Head exam: PRESENT: atraumatic, normocephalic Eye exam: PRESENT: conjunctiva pink, EOMI, PERRLA. ABSENT: scleral icterus Ear exam: PRESENT: normal external ear exam Mouth exam: PRESENT: moist, tongue midline Neck exam: ABSENT: carotid bruit, JVD, lymphadenopathy, thyromegaly Respiratory exam: PRESENT: clear to auscultation andreina. ABSENT: rales, rhonchi, wheezes Cardiovascular exam: PRESENT: RRR. ABSENT: diastolic murmur, rubs, systolic murmur Pulses: PRESENT: normal dorsalis pedis pul Vascular exam: PRESENT: normal capillary refill GI/Abdominal exam: PRESENT: normal bowel sounds, soft. ABSENT: distended, guarding, mass, organolmegaly, rebound, tenderness Rectal exam: PRESENT: deferred Extremities exam: PRESENT: full ROM. ABSENT: calf tenderness, clubbing, pedal edema Neurological exam: PRESENT: alert, awake, oriented to person, oriented to place, oriented to time, oriented to situation, CN II-XII grossly intact. ABSENT: motor sensory deficit Psychiatric exam: PRESENT: appropriate affect, normal mood. ABSENT: homicidal ideation, suicidal ideation Skin exam: PRESENT: dry, intact, warm. ABSENT: cyanosis, rash Results Laboratory Results: 05/22/19 05:50 05/22/19 05:50 05/19/19 03:09 Blood Blood Culture - Final Corynebacterium Species Impressions: Guidance Fluoroscopy 05/20/19 00:00 IMPRESSION: SUCCESSFUL PLACEMENT OF A 5 FR DUAL LUMEN 32 CM PICC IN THE LEFT BASILIC VEIN. Interventional Vascular Procedure 05/20/19 00:00 IMPRESSION: SUCCESSFUL PLACEMENT OF A 5 FR DUAL LUMEN 32 CM PICC IN THE LEFT BASILIC VEIN. PICC Line Insertion 05/20/19 00:00 IMPRESSION: SUCCESSFUL PLACEMENT OF A 5 FR DUAL LUMEN 32 CM PICC IN THE LEFT BASILIC VEIN. Thoracentesis Ultrasound 05/20/19 00:00 IMPRESSION: Ultrasound guided left-sided thoracentesis resulting in a pneumothorax. A 10 Russian small bore left-sided chest tube was placed. Venous Doppler Study 05/21/19 09:18 IMPRESSION: 1. There is nonocclusive thrombus present from the left common femoral vein through the distal femoral vein, and additionally within 1 of 2 paired posterior tibial veins. Overall burden of thrombus is generally decreased compared to prior examination dated 02/09/2019, in keeping with some interval resolution of now subacute to chronic thrombus. The presence of thrombus in the posterior tibial vein was reported on examination dated 02/09/2019 although not on examination dated 03/08/2019; given the appearance, however this is likely residual thrombus that was not identified on 03/08/2019 rather than new thrombus. 2. Technical note: Images are erroneously labeled right, the left lower extremity was scanned and documented per technologist report. Findings reported to RONDA Daniels at the time of imaging. Chest X-Ray 05/22/19 00:00 IMPRESSION: There has been interval removal of a left-sided pigtail chest tube. There is no significant pneumothorax. Otherwise stable examination with left greater than right pleural effusions and associated atelectasis or consolidation, cardiomegaly, and left upper extremity PICC. Abdomen/Pelvis CT 05/23/19 00:00 IMPRESSION: Increasing metastatic disease to the liver and to the bone. Chest CT 05/23/19 00:00 IMPRESSION: Bilateral pleural effusions with pleural thickening on the left. There are 2 stable pulmonary nodules on the right. There is extensive osseous metastatic disease. Assessment & Plan - Diagnosis (1) Pneumonia Qualifiers: Pneumonia type: due to unspecified organism Laterality: left Lung location: lower lobe of lung Qualified Code(s): J18.1 - Lobar pneumonia, unspecified organism Is this a current diagnosis for this admission?: Yes Plan: she has had atbx course on board. Once she has had 7 days of rx, we maybe able to stop. Will leave this up to hospitalist team. (2) Sepsis Qualifiers: Sepsis type: sepsis due to unspecified organism Sepsis acute organ dysfunction status: with acute organ dysfunction Severe sepsis acute organ dysfunction type: acute renal failure Acute renal failure type: with acute renal cortical necrosis Severe sepsis shock status: with septic shock Qualified Code(s): A41.9 - Sepsis, unspecified organism; R65.21 - Severe sepsis with septic shock; N17.1 - Acute kidney failure with acute cortical necrosis Is this a current diagnosis for this admission?: Yes Plan: Resolved (3) Carcinoma of left breast metastatic to bone Is this a current diagnosis for this admission?: Yes Plan: XRT today (4) Pain, neoplasm-related Is this a current diagnosis for this admission?: Yes Plan: Cont current pain regimen (5) Pleural effusion, left Is this a current diagnosis for this admission?: Yes - Time Time Spent with patient: 35 or more minutes
[2019-05-25] MEDS: DEXTROSE 5%-1/2 NORMAL SALINE 1,000 ML IV PRN (08:35)
[2019-05-25] MEDS: LEVOFLOXACIN 500 MG/D5W RTU 500 MG/100 ML RTUPB IV SCH (09:52)
[2019-05-25] MEDS: FENTANYL 50 MCG/HR PATCH.TD72 TD SCH (09:52)
[2019-05-25] MEDS: DEXAMETHASONE SOD PHOSPHATE INJ 4 MG/1 ML VIAL IV SCH ×2 (09:53→14:05)
[2019-05-25] MEDS: GUAIFENESIN 600 MG TABLET.SA PO SCH ×2 (09:58→21:27)
[2019-05-25] MEDS: FAMOTIDINE 20 MG TABLET PO SCH ×2 (09:59→21:27)
[2019-05-25] MEDS: POTASSIUM CHLORIDE 20 MEQ PACKET PO SCH (09:59)
--- NOTE | 2019-05-25 13:01 | PDOC PROGRESS REPORT ---
Subjective Progress Note for:: 05/25/19 Subjective:: This is very pleasant but unfortunate 44 years old female patient with stage IV left breast CA with metastasis to the bones and to the liver presented with chief complaint of fever of 3 days duration at admission patient found to be febrile with T-max of 101.1, leukocytosis with 11,300 and her chest x-ray revealed a left-sided lobar pneumonia and left large pleural effusion. Is been started on cefepime and Zosyn. I switched her antibiotics to Levaquin only. Dr. Ruby has a long discussion with the patient and family regarding the CT finding and alcohol visit to change her CODE STATUS to DNR. When I see the patient she is in sound sleep. 05/25/2019: Patient seen resting in bed comfortably. She is awake alert and oriented. Dr. Ruby has consulted management specialist 20 for possible home hospice arrangement. Elida will discuss with the patient and family this afternoon. Reason For Visit: PNEUMONIA, LEFT PLEURAL EFFUSION Physical Exam Vital Signs: Temp Pulse Resp BP Pulse Ox 97.6 F 106 H 18 111/76 96 05/25/19 03:49 05/25/19 07:00 05/25/19 03:49 05/25/19 03:49 05/25/19 03:49 Intake & Output 05/24/19 05/25/19 05/26/19 06:59 06:59 06:59 Intake Total 1049 422 8891 Output Total 575 325 Balance 1045 -225 1000 Weight 51.4 kg 53.2 kg Results Laboratory Results: 05/22/19 05:50 05/22/19 05:50 05/19/19 03:09 Blood Blood Culture - Final Corynebacterium Species Impressions: Guidance Fluoroscopy 05/20/19 00:00 IMPRESSION: SUCCESSFUL PLACEMENT OF A 5 FR DUAL LUMEN 32 CM PICC IN THE LEFT BASILIC VEIN. Interventional Vascular Procedure 05/20/19 00:00 IMPRESSION: SUCCESSFUL PLACEMENT OF A 5 FR DUAL LUMEN 32 CM PICC IN THE LEFT BASILIC VEIN. PICC Line Insertion 05/20/19 00:00 IMPRESSION: SUCCESSFUL PLACEMENT OF A 5 FR DUAL LUMEN 32 CM PICC IN THE LEFT BASILIC VEIN. Thoracentesis Ultrasound 05/20/19 00:00 IMPRESSION: Ultrasound guided left-sided thoracentesis resulting in a pneumothorax. A 10 Danish small bore left-sided chest tube was placed. Venous Doppler Study 05/21/19 09:18 IMPRESSION: 1. There is nonocclusive thrombus present from the left common femoral vein through the distal femoral vein, and additionally within 1 of 2 paired posterior tibial veins. Overall burden of thrombus is generally decreased compared to prior examination dated 02/09/2019, in keeping with some interval resolution of now subacute to chronic thrombus. The presence of thrombus in the posterior tibial vein was reported on examination dated 02/09/2019 although not on examination dated 03/08/2019; given the appearance, however this is likely residual thrombus that was not identified on 03/08/2019 rather than new thrombus. 2. Technical note: Images are erroneously labeled right, the left lower extremity was scanned and documented per technologist report. Findings reported to RONDA Daniels at the time of imaging. Chest X-Ray 05/22/19 00:00 IMPRESSION: There has been interval removal of a left-sided pigtail chest tube. There is no significant pneumothorax. Otherwise stable examination with left greater than right pleural effusions and associated atelectasis or consolidation, cardiomegaly, and left upper extremity PICC. Abdomen/Pelvis CT 05/23/19 00:00 IMPRESSION: Increasing metastatic disease to the liver and to the bone. Chest CT 05/23/19 00:00 IMPRESSION: Bilateral pleural effusions with pleural thickening on the left. There are 2 stable pulmonary nodules on the right. There is extensive osseous metastatic disease. Assessment and Plan - Diagnosis (1) Left lower lobe pneumonia Is this a current diagnosis for this admission?: Yes Plan: Her antibiotics switched from Zosyn and cefepime to Levaquin. (2) Recurrent left pleural effusion Is this a current diagnosis for this admission?: Yes Plan: Probably related to malignancy. (3) Stage IV left breast CA Is this a current diagnosis for this admission?: Yes Plan: Agent has multiple metastasis to the liver, metastasis to L2/L3 and to her left wrist. Management per her primary oncologist. (4) Pain, neoplasm-related Is this a current diagnosis for this admission?: Yes Plan: Continue current pain management.
[2019-05-25] MEDS: RIVAROXABAN 10 MG TABLET PO SCH (17:12)
[2019-05-26] MEDS: HYDROMORPHONE HCL INJ/PF 2 MG/ML AMPULE IV PRN ×2 (05:19→22:25)
[2019-05-26] MEDS: DEXTROSE 5%-1/2 NORMAL SALINE 1,000 ML IV PRN ×2 (05:19→17:34)
[2019-05-26] MEDS: DEXAMETHASONE SOD PHOSPHATE INJ 4 MG/1 ML VIAL IV SCH ×2 (08:16→13:50)
[2019-05-26] MEDS ORDERED: HYDROMORPHONE HCL INJ/PF 2 MG/ML AMPULE IV PRN (08:41)
--- NOTE | 2019-05-26 08:45 | PDOC PROGRESS REPORT ---
Subjective Progress Note for:: 05/26/19 Subjective:: Patient seemed to be better yesterday, pain was better, today had a long discussion with the about next steps of care, patient has talked to [facility] and may be going towards a palliative care route. Radiation is set to complete tomorrow. We adjusted pain medications, gave instructions and orders for constipation medications because she still has not had a bowel movement in about 9 days. Added Ativan. Reason For Visit: PNEUMONIA, LEFT PLEURAL EFFUSION Physical Exam Vital Signs: Temp Pulse Resp BP Pulse Ox 97.3 F 104 H 20 103/42 L 97 05/26/19 07:38 05/26/19 07:38 05/26/19 07:38 05/26/19 07:38 05/26/19 07:38 Intake & Output 05/25/19 05/26/19 05/27/19 06:59 06:59 06:59 Intake Total 100 2636 Output Total 325 1200 Balance -225 1436 Weight 53.2 kg 53 kg General appearance: PRESENT: no acute distress, well-developed, well-nourished Head exam: PRESENT: atraumatic, normocephalic Eye exam: PRESENT: conjunctiva pink, EOMI, PERRLA. ABSENT: scleral icterus Ear exam: PRESENT: normal external ear exam Mouth exam: PRESENT: moist, tongue midline Neck exam: ABSENT: carotid bruit, JVD, lymphadenopathy, thyromegaly Respiratory exam: PRESENT: clear to auscultation andreina. ABSENT: rales, rhonchi, wheezes Cardiovascular exam: PRESENT: RRR. ABSENT: diastolic murmur, rubs, systolic murmur Pulses: PRESENT: normal dorsalis pedis pul Vascular exam: PRESENT: normal capillary refill GI/Abdominal exam: PRESENT: normal bowel sounds, soft. ABSENT: distended, guarding, mass, organolmegaly, rebound, tenderness Rectal exam: PRESENT: deferred Extremities exam: PRESENT: full ROM. ABSENT: calf tenderness, clubbing, pedal edema Neurological exam: PRESENT: alert, awake, oriented to person, oriented to place, oriented to time, oriented to situation, CN II-XII grossly intact. ABSENT: motor sensory deficit Psychiatric exam: PRESENT: appropriate affect, normal mood. ABSENT: homicidal ideation, suicidal ideation Skin exam: PRESENT: dry, intact, warm. ABSENT: cyanosis, rash Results Laboratory Results: 05/22/19 05:50 05/22/19 05:50 Impressions: Guidance Fluoroscopy 05/20/19 00:00 IMPRESSION: SUCCESSFUL PLACEMENT OF A 5 FR DUAL LUMEN 32 CM PICC IN THE LEFT BASILIC VEIN. Interventional Vascular Procedure 05/20/19 00:00 IMPRESSION: SUCCESSFUL PLACEMENT OF A 5 FR DUAL LUMEN 32 CM PICC IN THE LEFT BASILIC VEIN. PICC Line Insertion 05/20/19 00:00 IMPRESSION: SUCCESSFUL PLACEMENT OF A 5 FR DUAL LUMEN 32 CM PICC IN THE LEFT BASILIC VEIN. Thoracentesis Ultrasound 05/20/19 00:00 IMPRESSION: Ultrasound guided left-sided thoracentesis resulting in a pneumothorax. A 10 Romanian small bore left-sided chest tube was placed. Venous Doppler Study 05/21/19 09:18 IMPRESSION: 1. There is nonocclusive thrombus present from the left common femoral vein through the distal femoral vein, and additionally within 1 of 2 paired posterior tibial veins. Overall burden of thrombus is generally decreased compared to prior examination dated 02/09/2019, in keeping with some interval resolution of now subacute to chronic thrombus. The presence of thrombus in the posterior tibial vein was reported on examination dated 02/09/2019 although not on examination dated 03/08/2019; given the appearance, however this is likely residual thrombus that was not identified on 03/08/2019 rather than new thrombus. 2. Technical note: Images are erroneously labeled right, the left lower extremity was scanned and documented per technologist report. Findings reported to RONDA Daniels at the time of imaging. Chest X-Ray 05/22/19 00:00 IMPRESSION: There has been interval removal of a left-sided pigtail chest tube. There is no significant pneumothorax. Otherwise stable examination with left greater than right pleural effusions and associated atelectasis or consolidation, cardiomegaly, and left upper extremity PICC. Abdomen/Pelvis CT 05/23/19 00:00 IMPRESSION: Increasing metastatic disease to the liver and to the bone. Chest CT 05/23/19 00:00 IMPRESSION: Bilateral pleural effusions with pleural thickening on the left. There are 2 stable pulmonary nodules on the right. There is extensive osseous metastatic disease. Assessment & Plan - Diagnosis (1) Pneumonia Qualifiers: Pneumonia type: due to unspecified organism Laterality: left Lung location: lower lobe of lung Qualified Code(s): J18.1 - Lobar pneumonia, unspecified organism Is this a current diagnosis for this admission?: Yes Plan: Resolved (2) Sepsis Qualifiers: Sepsis type: sepsis due to unspecified organism Sepsis acute organ dysfunction status: with acute organ dysfunction Severe sepsis acute organ dysfunction type: acute renal failure Acute renal failure type: with acute renal cortical necrosis Severe sepsis shock status: with septic shock Qualified Code(s): A41.9 - Sepsis, unspecified organism; R65.21 - Severe sepsis with septic shock; N17.1 - Acute kidney failure with acute cortical necrosis Is this a current diagnosis for this admission?: Yes Plan: Resolved (3) 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
[2019-05-26] MEDS ORDERED: LORAZEPAM INJ 2 MG/1 ML VIAL IV PRN (08:49)
[2019-05-26] MEDS ORDERED: BISACODYL 10 MG SUPP.RECT PR PRN (08:49)
[2019-05-26] MEDS: ACETYLCYSTEINE 20% SOLN 800 MG/4 ML VIAL.NEB NEB SCH (09:03)
[2019-05-26] MEDS: GUAIFENESIN 600 MG TABLET.SA PO SCH ×2 (09:19→21:03)
[2019-05-26] MEDS: POTASSIUM CHLORIDE 20 MEQ PACKET PO SCH (09:19)
[2019-05-26] MEDS: MAGNESIUM HYDROXIDE SUSP 30 ML UDCUP PO SCH (09:19)
[2019-05-26] MEDS: POLYETHYLENE GLYCOL 3350 POWDER 17 GM/1 PACKET PO SCH (09:19)
[2019-05-26] MEDS: BISACODYL 5 MG TABEC PO SCH (09:19)
[2019-05-26] MEDS: LEVOFLOXACIN 500 MG/D5W RTU 500 MG/100 ML RTUPB IV SCH (09:20)
[2019-05-26] MEDS: FENTANYL 50 MCG/HR PATCH.TD72 TD SCH (09:39)
[2019-05-26] MEDS: FAMOTIDINE 20 MG TABLET PO SCH ×2 (09:42→21:04)
[2019-05-26] MEDS ORDERED: ONDANSETRON HCL INJ/PF 4 MG/2 ML SDV ONE (11:06)
[2019-05-26] MEDS ORDERED: ONDANSETRON HCL INJ/PF 4 MG/2 ML SDV IV PRN (11:23)
--- NOTE | 2019-05-26 12:22 | PDOC PROGRESS REPORT ---
Subjective Progress Note for:: 05/26/19 Subjective:: This is very pleasant but unfortunate 44 years old female patient with stage IV left breast CA with metastasis to the bones and to the liver presented with chief complaint of fever of 3 days duration at admission patient found to be febrile with T-max of 101.1, leukocytosis with 11,300 and her chest x-ray revealed a left-sided lobar pneumonia and left large pleural effusion. Is been started on cefepime and Zosyn. I switched her antibiotics to Levaquin only. Dr. Ruby has a long discussion with the patient and family regarding the CT finding and alcohol visit to change her CODE STATUS to DNR. When I see the patient she is in sound sleep. 05/25/2019: Patient seen resting in bed comfortably. She is awake alert and oriented. Dr. Ruby has consulted loss prevention specialist 20 for possible home hospice arrangement. Elida will discuss with the patient and family this afternoon. 05/26/2019: Patient seen resting in bed. She complains of lack of appetite and constipation. Her constipation partly attributed to opiates. She has been on MiraLAX, docusate and milk of magnesia but she did not take none of them. Could boost her appetite patient has been started on Megace, Remeron and Marinol. Patient scheduled today for palliative radiation therapy. Reason For Visit: PNEUMONIA, LEFT PLEURAL EFFUSION Physical Exam Vital Signs: Temp Pulse Resp BP Pulse Ox 97.3 F 104 H 20 103/42 L 97 05/26/19 07:38 05/26/19 07:38 05/26/19 07:38 05/26/19 07:38 05/26/19 07:38 Intake & Output 05/25/19 05/26/19 05/27/19 06:59 06:59 06:59 Intake Total 100 2636 100 Output Total 325 1200 Balance -225 1436 100 Weight 53.2 kg 53 kg Results Laboratory Results: 05/22/19 05:50 05/22/19 05:50 Impressions: Guidance Fluoroscopy 05/20/19 00:00 IMPRESSION: SUCCESSFUL PLACEMENT OF A 5 FR DUAL LUMEN 32 CM PICC IN THE LEFT BASILIC VEIN. Interventional Vascular Procedure 05/20/19 00:00 IMPRESSION: SUCCESSFUL PLACEMENT OF A 5 FR DUAL LUMEN 32 CM PICC IN THE LEFT BASILIC VEIN. PICC Line Insertion 05/20/19 00:00 IMPRESSION: SUCCESSFUL PLACEMENT OF A 5 FR DUAL LUMEN 32 CM PICC IN THE LEFT BASILIC VEIN. Thoracentesis Ultrasound 05/20/19 00:00 IMPRESSION: Ultrasound guided left-sided thoracentesis resulting in a pneumothorax. A 10 [place] small bore left-sided chest tube was placed. Venous Doppler Study 05/21/19 09:18 IMPRESSION: 1. There is nonocclusive thrombus present from the left common femoral vein through the distal femoral vein, and additionally within 1 of 2 paired posterior tibial veins. Overall burden of thrombus is generally decreased compared to prior examination dated 02/09/2019, in keeping with some interval resolution of now subacute to chronic thrombus. The presence of thrombus in the posterior tibial vein was reported on examination dated 02/09/2019 although not on examination dated 03/08/2019; given the appearance, however this is likely residual thrombus that was not identified on 03/08/2019 rather than new thrombus. 2. Technical note: Images are erroneously labeled right, the left lower extremity was scanned and documented per technologist report. Findings reported to RONDA Daniels at the time of imaging. Chest X-Ray 05/22/19 00:00 IMPRESSION: There has been interval removal of a left-sided pigtail chest tube. There is no significant pneumothorax. Otherwise stable examination with left greater than right pleural effusions and associated atelectasis or consolidation, cardiomegaly, and left upper extremity PICC. Abdomen/Pelvis CT 05/23/19 00:00 IMPRESSION: Increasing metastatic disease to the liver and to the bone. Chest CT 05/23/19 00:00 IMPRESSION: Bilateral pleural effusions with pleural thickening on the left. There are 2 stable pulmonary nodules on the right. There is extensive osseous metastatic disease. Assessment and Plan - Diagnosis (1) Left lower lobe pneumonia Is this a current diagnosis for this admission?: Yes Plan: Her antibiotics switched from Zosyn and cefepime to Levaquin. (2) Recurrent left pleural effusion Is this a current diagnosis for this admission?: Yes Plan: Probably related to malignancy. (3) Stage IV left breast CA Is this a current diagnosis for this admission?: Yes Plan: Agent has multiple metastasis to the liver, metastasis to L2/L3 and to her left wrist. Management per her primary oncologist. (4) Pain, neoplasm-related Is this a current diagnosis for this admission?: Yes Plan: Continue current pain management.
[2019-05-26] MEDS ORDERED: DRONABINOL 2.5 MG CAPSULE PO PRN (12:30)
[2019-05-26] MEDS ORDERED: METOCLOPRAMIDE HCL INJ/PF 10 MG/2 ML SDV ONE (13:45)
[2019-05-26] MEDS ORDERED: PROMETHAZINE HCL INJ 25 MG/1 ML VIAL IV PRN ×2 (13:48→14:00)
[2019-05-26] MEDS ORDERED: METOCLOPRAMIDE HCL INJ/PF 10 MG/2 ML SDV IV ONE (14:00)
[2019-05-26] MEDS: RIVAROXABAN 10 MG TABLET PO SCH (16:54)
[2019-05-26] MEDS ORDERED: MIRTAZAPINE 15 MG TABLET PO SCH (22:00)
[2019-05-27] MEDS: HYDROMORPHONE HCL INJ/PF 2 MG/ML AMPULE IV PRN (03:52)
[2019-05-27] MEDS ORDERED: HYDROMORPHONE HCL INJ/PF 2 MG/ML AMPULE IV PRN (08:24)
[2019-05-27] MEDS ORDERED: HYDROMORPHONE HCL 2 MG TABLET PO PRN (08:29)
[2019-05-27] MEDS: DEXAMETHASONE SOD PHOSPHATE INJ 4 MG/1 ML VIAL IV SCH ×2 (08:31→14:36)
[2019-05-27] MEDS: DEXTROSE 5%-1/2 NORMAL SALINE 1,000 ML IV PRN (08:31)
--- NOTE | 2019-05-27 08:59 | PDOC PROGRESS REPORT ---
Subjective Progress Note for:: 05/27/19 Subjective:: Long discussion w/ pt and boyfriend, she does not want further xrt, she is ready for full home hospice, we discussed switching IV dilaudid to oral to see if pain controlled, increasing fentanyl, spent 45 min in discussion. Reason For Visit: PNEUMONIA, LEFT PLEURAL EFFUSION Physical Exam Vital Signs: Temp Pulse Resp BP Pulse Ox 97.7 F 93 18 100/72 94 05/26/19 19:39 05/27/19 07:00 05/26/19 19:39 05/26/19 19:39 05/26/19 19:39 Intake & Output 05/26/19 05/27/19 05/28/19 06:59 06:59 06:59 Intake Total 2636 2219 Output Total 1200 1375 Balance 1436 844 Weight 53 kg 56.4 kg General appearance: PRESENT: no acute distress, well-developed, well-nourished Head exam: PRESENT: atraumatic, normocephalic Eye exam: PRESENT: conjunctiva pink, EOMI, PERRLA. ABSENT: scleral icterus Ear exam: PRESENT: normal external ear exam Mouth exam: PRESENT: moist, tongue midline Neck exam: ABSENT: carotid bruit, JVD, lymphadenopathy, thyromegaly Respiratory exam: PRESENT: clear to auscultation andreina. ABSENT: rales, rhonchi, wheezes Cardiovascular exam: PRESENT: RRR. ABSENT: diastolic murmur, rubs, systolic murmur Pulses: PRESENT: normal dorsalis pedis pul Vascular exam: PRESENT: normal capillary refill GI/Abdominal exam: PRESENT: normal bowel sounds, soft. ABSENT: distended, guarding, mass, organolmegaly, rebound, tenderness Rectal exam: PRESENT: deferred Extremities exam: PRESENT: full ROM. ABSENT: calf tenderness, clubbing, pedal edema Neurological exam: PRESENT: alert, awake, oriented to person, oriented to place, oriented to time, oriented to situation, CN II-XII grossly intact. ABSENT: motor sensory deficit Psychiatric exam: PRESENT: appropriate affect, normal mood. ABSENT: homicidal ideation, suicidal ideation Skin exam: PRESENT: dry, intact, warm. ABSENT: cyanosis, rash Results Laboratory Results: 05/22/19 05:50 05/22/19 05:50 Impressions: Guidance Fluoroscopy 05/20/19 00:00 IMPRESSION: SUCCESSFUL PLACEMENT OF A 5 FR DUAL LUMEN 32 CM PICC IN THE LEFT BASILIC VEIN. Interventional Vascular Procedure 05/20/19 00:00 IMPRESSION: SUCCESSFUL PLACEMENT OF A 5 FR DUAL LUMEN 32 CM PICC IN THE LEFT BASILIC VEIN. PICC Line Insertion 05/20/19 00:00 IMPRESSION: SUCCESSFUL PLACEMENT OF A 5 FR DUAL LUMEN 32 CM PICC IN THE LEFT BASILIC VEIN. Thoracentesis Ultrasound 05/20/19 00:00 IMPRESSION: Ultrasound guided left-sided thoracentesis resulting in a pneumothorax. A 10 Lao small bore left-sided chest tube was placed. Venous Doppler Study 05/21/19 09:18 IMPRESSION: 1. There is nonocclusive thrombus present from the left common f emoral vein through the distal femoral vein, and additionally within 1 of 2 paired posterior tibial veins. Overall burden of thrombus is generally decreased compared to prior examination dated 02/09/2019, in keeping with some interval resolution of now subacute to chronic thrombus. The presence of t hrombus in the posterior tibial vein was reported on examination dated 02/09/2019 although not on examination dated 03/08/2019; given the appearance, however this is likely residual thrombus that was not identified on 03/08/2019 rather than new thrombus. 2. Technical note: Images are erroneously labeled right, the left lower extremity was scanned and documented per technologist report. Findings reported to RONDA Daniels at the time of imaging. Chest X-Ray 05/22/19 00:00 IMPRESSION: There has been interval removal of a left-sided pigtail chest tube. There is no significant pneumothorax. Otherwise stable examination with left greater than right pleural effusions and associated atelectasis or consolidation, cardiomegaly, and left upper extremity PICC. Abdomen/Pelvis CT 05/23/19 00:00 IMPRESSION: Increasing metastatic disease to the liver and to the bone. Chest CT 05/23/19 00:00 IMPRESSION: Bilateral pleural effusions with pleural thickening on the left. There are 2 stable pulmonary nodules on the right. There is extensive osseous metastatic disease. 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
[2019-05-27] MEDS ORDERED: FENTANYL 75 MCG/HR PATCH.TD72 TD SCH (09:00)
[2019-05-27] MEDS ORDERED: MEGESTROL ACETATE SUSP 400 MG/10 ML UDCUP PO SCH (10:00)
[2019-05-27] MEDS: FAMOTIDINE 20 MG TABLET PO SCH (10:10)
[2019-05-27] MEDS: BISACODYL 5 MG TABEC PO SCH ×2 (10:10→10:28)
[2019-05-27] MEDS: GUAIFENESIN 600 MG TABLET.SA PO SCH ×2 (10:11→10:27)
[2019-05-27] MEDS: POTASSIUM CHLORIDE 20 MEQ PACKET PO SCH (10:11)
[2019-05-27] MEDS: LEVOFLOXACIN 500 MG/D5W RTU 500 MG/100 ML RTUPB IV SCH (10:14)
[2019-05-27] MEDS: POLYETHYLENE GLYCOL 3350 POWDER 17 GM/1 PACKET PO SCH (10:14)
[2019-05-27] MEDS: MAGNESIUM HYDROXIDE SUSP 30 ML UDCUP PO SCH (10:14)
[2019-05-27 13:26] VITALS: BP 101/75
--- NOTE | 2019-06-03 08:03 | PDOC DISCHARGE SUMMARY ---
General - Admit/Disc Date/PCP Admission Date/Primary Care Provider: 05/19/19 03:13 NIRAV ESTES MD Discharge Date: 05/27/19 - Discharge Diagnosis (1) Left lower lobe pneumonia Is this a current diagnosis for this admission?: Yes (2) Recurrent left pleural effusion Is this a current diagnosis for this admission?: Yes (3) Stage IV left breast CA Is this a current diagnosis for this admission?: Yes (4) Pain, neoplasm-related Is this a current diagnosis for this admission?: Yes - Additional Information Resuscitation Status: Full Code Home Medications: Morphine Sulfate [Morphine Ir 15 mg Tablet] 15 mg PO Q6HP PRN #12 tablet 03/08/19 Morphine Sulfate [Morphabond ER] 15 mg PO Q12 05/19/19 Potassium Chloride 20 meq PO DAILY 05/19/19 Rivaroxaban [Xarelto] 20 mg PO DAILY 05/19/19 History of Present Illness History of Present Illness: SERAFIN MENDIOLA is a 44 year old female who presented to the emergency room with a 3 day history of fever. Patient states that she developed a subjective fever Thursday and has gradually noticed worsening of her febrile associated symptoms of chills, malaise, fatigue, rapid heart palpitations and exertional dyspnea. She gives additional history that she is currently being treated with chemotherapy for metastatic breast cancer and recently was found to have a deep venous thrombosis in her left lower extremity. She denies prior similar episodes and has not identified any other aggravating or ameliorating factors for her fever. EMS found her to have an elevated temperature of 101.1 F and administered 975 mg of acetaminophen prior to the patient's arrival. In the ER the patient was noted to be tachycardic in the 120s and was found to have an elevated white blood count of 11,300. Her serum lactate was normal and her chest x-ray revealed a left-sided lobar pneumonia and a large left pleural effusion. With these findings antibiotic therapy was initiated and patient was admitted to the hospital for further evaluation and treatment. Hospital Course Hospital Course: This is very pleasant but unfortunate 44 years old female patient with stage IV left breast CA with metastasis to the bones and to the liver presented with chief complaint of fever of 3 days duration at admission patient found to be febrile with T-max of 101.1, leukocytosis with 11,300 and her chest x-ray revealed a left-sided lobar pneumonia and left large pleural effusion. Is been started on cefepime and Zosyn. I switched her antibiotics to Levaquin only. Dr. Estes has a long discussion with the patient and family regarding the CT finding and alcohol visit to change her CODE STATUS to DNR. When I see the patient she is in sound sleep. 05/25/2019: Patient seen resting in bed comfortably. She is awake alert and oriented. Dr. Estes has consulted parts counter specialist 20 for possible home hospice arrangement. Elida will discuss with the patient and family this afternoon. 05/26/2019: Patient seen resting in bed. She complains of lack of appetite and constipation. Her constipation partly attributed to opiates. She has been on MiraLAX, docusate and milk of magnesia but she did not take none of them. Could boost her appetite patient has been started on Megace, Remeron and Marinol. Patient scheduled today for palliative radiation therapy. 05/27/2019: Per Dr. Estes patient does not want further palliative radiation therapy and she is ready for full home hospice. Physical Exam Vital Signs: Temp Pulse Resp BP Pulse Ox 97.3 F 114 H 20 101/75 96 05/27/19 11:25 05/27/19 11:25 05/27/19 11:25 05/27/19 11:25 05/27/19 11:25 Intake & Output 05/26/19 05/27/19 05/28/19 06:59 06:59 06:59 Intake Total 2636 2219 100 Output Total 1200 1375 Balance 1436 844 100 Weight 53 kg 56.4 kg Results Laboratory Results: 05/22/19 05:50 05/22/19 05:50 Impressions: Guidance Fluoroscopy 05/20/19 00:00 IMPRESSION: SUCCESSFUL PLACEMENT OF A 5 FR DUAL LUMEN 32 CM PICC IN THE LEFT BASILIC VEIN. Interventional Vascular Procedure 05/20/19 00:00 IMPRESSION: SUCCESSFUL PLACEMENT OF A 5 FR DUAL LUMEN 32 CM PICC IN THE LEFT BASILIC VEIN. PICC Line Insertion 05/20/19 00:00 IMPRESSION: SUCCESSFUL PLACEMENT OF A 5 FR DUAL LUMEN 32 CM PICC IN THE LEFT BASILIC VEIN. Thoracentesis Ultrasound 05/20/19 00:00 IMPRESSION: Ultrasound guided left-sided thoracentesis resulting in a pneumothorax. A 10 [place] small bore left-sided chest tube was placed. Venous Doppler Study 05/21/19 09:18 IMPRESSION: 1. There is nonocclusive thrombus present from the left common femoral vein through the distal femoral vein, and additionally within 1 of 2 paired posterior tibial veins. Overall burden of thrombus is generally decreased compared to prior examination dated 02/09/2019, in keeping with some interval resolution of now subacute to chronic thrombus. The presence of thrombus in the posterior tibial vein was reported on examination dated 02/09/2019 although not on examination dated 03/08/2019; given the appearance, however this is likely residual thrombus that was not identified on 03/08/2019 rather than new thrombus. 2. Technical note: Images are erroneously labeled right, the left lower extremity was scanned and documented per technologist report. Findings reported to RONDA Daniels at the time of imaging. Chest X-Ray 05/22/19 00:00 IMPRESSION: There has been interval removal of a left-sided pigtail chest tube. There is no significant pneumothorax. Otherwise stable examination with left greater than right pleural effusions and associated atelectasis or consolidation, cardiomegaly, and left upper extremity PICC. Abdomen/Pelvis CT 05/23/19 00:00 IMPRESSION: Increasing metastatic disease to the liver and to the bone. Chest CT 05/23/19 00:00 IMPRESSION: Bilateral pleural effusions with pleural thickening on the left. There are 2 stable pulmonary nodules on the right. There is extensive osseous metastatic disease. Qualifiers - * PATIENT BEING DISCHARGED WITH ANY OF THE FOLLOWING DIAGNOSIS: No Acute Heart Failure - Is this a Heart Failure Patient?: No LVEF < 40%?: No- if no continue to question #3 3. Anticoagulant therapy for permanect/persistent/paraoxysmal Afib or Aflutter: N/A
== END 2019-05-27 15:44 | disposition hospice, home (50) | DRG 871 ==
LOC: ER 01:04 → EH 03:13 → 5 04:32 → 3W 13:19
PROVIDERS: ADMIT Emergency Medicine; ATTEND Emergency Medicine
PROC: 0W9B30Z Drainage of Left Pleural Cavity with Drainage Device, Percutaneous Approach (ICD-10-PCS; principal; 2019-05-20)
PROC: 02HV33Z Insertion of Infusion Device into Superior Vena Cava, Percutaneous Approach (ICD-10-PCS; 2019-05-20)
PROC: 0WP830Z Removal of Drainage Device from Chest Wall, Percutaneous Approach (ICD-10-PCS; 2019-05-22)
DX: A41.9 Sepsis, unspecified organism (principal); J18.1 Lobar pneumonia, unspecified organism; J95.811 Postprocedural pneumothorax; N17.1 Acute kidney failure with acute cortical necrosis; R65.21 Severe sepsis with septic shock; J91.8 Pleural effusion in other conditions classified elsewhere; I82.412 Acute embolism and thrombosis of left femoral vein; C78.00 Secondary malignant neoplasm of unspecified lung; C78.7 Secondary malignant neoplasm of liver and intrahepatic bile duct; C79.51 Secondary malignant neoplasm of bone; D64.81 Anemia due to antineoplastic chemotherapy; C50.912 Malignant neoplasm of unspecified site of left female breast; Z66 Do not resuscitate; T45.1X5A Adverse effect of antineoplastic and immunosuppressive drugs, initial encounter; M54.9 Dorsalgia, unspecified; G89.3 Neoplasm related pain (acute) (chronic); Y84.4 Aspiration of fluid as the cause of abnormal reaction of the patient, or of later complication, without mention of misadventure at the time of the procedure; Y92.239 Unspecified place in hospital as the place of occurrence of the external cause; K59.00 Constipation, unspecified; M25.552 Pain in left hip; I89.0 Lymphedema, not elsewhere classified; Z79.899 Other long term (current) drug therapy; Z90.13 Acquired absence of bilateral breasts and nipples; Z88.8 Allergy status to other drugs, medicaments and biological substances; Z91.041 Radiographic dye allergy status; Z17.0 Estrogen receptor positive status [ER+]; Z80.3 Family history of malignant neoplasm of breast; Z86.718 Personal history of other venous thrombosis and embolism
CPT/HCPCS: 32555; 36415; 36569; 71045; 71046; 71250; 74176; 76937; 77001; 80048; 80053; 81001; 82803; 83605; 83735; 84481; 84703; 85025; 85027; 87040; 87077; 87086; 88305; 88341; 88342; 93005; 93010; 93971; 94640; 96360; 99285; A9270-GY; C1729; C1894; J0456; J0696; J1100; J1170; J1642; J1956; J2270; J2405; J2543; J2550; J2765; J3490; J7030; J7050; J7060; J7120; J7614